=== PATIENT | male | born 1965 | race Caucasian/White ===

== ENCOUNTER 2023-08-20 23:11 | Inpatient (IN) | payer MEDICARE, SELFPAY ==
[2023-08-20] VITALS (7 sets, daily range): BP systolic 104–175; BP diastolic 63–99; BMI 39.2
[2023-08-20 20:44] LABS: % Basophils 0.6 % (0-2); % Eosinophils 0.9 % (0-6); % Immature Granulocytes 0.8 % (0-0.5); % Lymphocytes 19.5 % (20.5-51.1); % Monocytes 6.6 % (1.7-9.3); % Neutrophils 71.6 % (42.2-75.2); Absolute Basophils 0.1 10^3/uL (0-0.2); Absolute Eosinophils 0.1 10^3/uL (0-0.7); Absolute Immature Granulocytes 0.1 10^3/uL (0-0.05); Absolute Monocytes 0.7 10^3/uL (0.1-0.6); Absolute Neutrophils 7.3 10^3/uL (1.4-6.5); Mean Corp Hgb Conc. 34.3 g/dL (33.0-37.0); Mean Corpuscular Hgb 28.1 pg (27.0-31.0); Mean Corpuscular Volume 81.9 fL (80.0-94.0); Nucleated Red Blood Cells % 0.7 % (-); Red Cell Dist. Width 17.2 % (11.5-14.5); White Blood Cell Count 10.3 10^3/uL (4.8-10.8)
[2023-08-20 20:46] LABS: Hematocrit 17.2 % (39.0-52.0); Hemoglobin 5.9 g/dL (13.0-18.0)
--- NOTE | 2023-08-20 20:46 | ED.GENMED ---
History of Present Illness
General
Chief Complaint: Rectal Bleeding
Time Seen by Provider: 08/20/23 20:30
Travel History
Have you had any contact with someone who has COVID-19?: No
Do you have any symptoms of coronavirus? Fever > 100 degrees, chills, cough, shortness of breath, sore throat, loss of taste or smell, muscle aches, or headache?: No
History of Present Illness
History of Present Illness:
HPI: The patient presents due to concerns for rectal bleeding. He states he has had black stool that started 9 days ago. It was intermittent in nature but then recurred. He has no pain. He states he has had an ulcer in the past he does not take
any PPI. He also has some generalized weakness.
EXAM:
GENERAL: The patient appears slightly pale
HEENT: Moist oral mucosa
CARDIOVASCULAR: No murmurs, normal heart rate, regular rhythm, No chest wall tenderness
PULMONARY: No respiratory distress, breath sounds are clear and equal
ABDOMEN: Soft with no peritoneal signs, no tenderness, of note he has refused digital rectal examination
NEUROLOGIC: Excellent strength all extremities, no coordination deficits
PSYCHIATRIC: Appropriate mental status, normal insight and judgement
EXTREMITIES: Nontender, no edema, moves all extremities equally
SKIN: No rash, no lesions
TIME OF INITIAL ENCOUNTER: 8:30 PM
NUMBER AND COMPLEXITY OF PROBLEMS ADDRESSED AT THE ENCOUNTER
� Chronic conditions affecting care: A-fib, CHF, CAD, high blood pressure, diverticular disease, stomach ulcer
� Acute Exacerbation and/or Progression of Chronic Illness: This is an acute problem
� Differential Diagnosis includes: Upper GI bleed such as gastritis, ulcer, esophageal varices, the patient denies alcohol use
AMOUNT AND/OR COMPLEXITY OF DATA TO BE REVIEWED AND ANALYZED
� I performed an independent evaluation of and my interpretation is:
EKG:
CT:
X-rays:
Laboratory Studies: White count 10.3, hemoglobin 5.9, BUN 88, creatinine 2.2, glucose is 212
Other:
� Review of other/old records: I reviewed old records�the patient had endoscopy November 22, 2021 that showed a normal esophagus and erythematous mucosa in the antrum
� Clinical information was obtained by an independent historian: None needed
� Prescriptions/Medications Considered but not given:
� Further testing considered but not performed:
RISK OF COMPLICATIONS AND/OR MORBIDITY OR MORTALITY OF PATIENT MANAGEMENT
� Social determinants of health affecting care: Lives at home
� Discussion with other providers: Dr. Rosario for admission at 9:05 PM
� Escalation of care including admission/observation vs risk of discharge considered: The patient is found to have a significant drop in his hemoglobin. I have ordered Protonix as he reports melena. He is not taking any Pepto
or iron. He refused digital rectal examination for Hemoccult testing. He is no longer on NSAIDs or Eliquis.
Past History
Past History
ED Past Medical History: CAD, CHF (EF 30%.), HTN, Other (Gout) and Other (Perforated gastric ulcer 2014)
ED Past Surgical History: Urological and Other (laparotomy, repair of perforated gastric ulcer 2014)
Social History
Tobacco: Non-smoker
Alcohol: Occasional
Drug: None
Personal: Single
Employment: Employed
Phy Exam
Physical Exam
Physical Exam:
See HPI
Course
Orders/Labs/Results
Orders:
Orders
08/20/23 20:29
Complete Blood Count/With Diff Urgent
Comprehensive Metabolic Panel Urgent
PTT Urgent
Prothrombin Time Urgent
08/20/23 20:43
Type+Screen Urgent
BBK Wristband Number:
08/20/23 20:50
* Blood Bank Products Urgent
Blood Bank Products: *Packed RBC Leuko(PRBC's)
Quantity: 2
Transfuse Today: Yes
Reason: Anemia
08/20/23 20:51
Pantoprazole [Protonix IV] 80 mg IV NOW STA
Abnormal Lab Results
08/20/23
20:29
RBC 2.10 L 10^6/uL
(4.70-6.10)
Hgb 5.9 L* g/dL
(13.0-18.0)
Hct 17.2 L* %
(39.0-52.0)
RDW 17.2 H %
(11.5-14.5)
Abs Immat Gran (auto) 0.1 H 10^3/uL
(0-0.05)
Absolute Neuts (auto) 7.3 H 10^3/uL
(1.4-6.5)
Absolute Monos (auto) 0.7 H 10^3/uL
(0.1-0.6)
Immature Gran % 0.8 H %
(0-0.5)
Lymphocytes % 19.5 L %
(20.5-51.1)
Sodium 134 L mmol/L
(135-145)
BUN 88 H mg/dl
(9-20)
Creatinine 2.2 H mg/dL
(0.7-1.3)
Glucose 212 H mg/dl
(70-99)
Alkaline Phosphatase 32 L U/L
(38-126)
Total Protein 5.7 L g/dl
(6.3-8.2)
Albumin 3.3 L g/dl
(3.5-5.0)
08/20/23 20:29
08/20/23 20:29
Vital Signs
Initial and Last Documented VS:
Initial Vital Signs
Temp Pulse Resp BP Pulse Ox
98.3 F 91 18 175/99 100
08/20/23 17:15 08/20/23 17:15 08/20/23 17:15 08/20/23 17:15 08/20/23 17:15
Last Documented Vital Signs
Temp Pulse Resp BP Pulse Ox
98.3 F 81 20 117/72 99
08/20/23 17:15 08/20/23 20:45 08/20/23 20:45 08/20/23 20:18 08/20/23 20:45
*Critical Care Note
Total Time (30-74mins, 75-104mins- exclusive of procedures): Not Applicable
ED Attending Note
-
Portions of this chart may have been created with voice recognition software.� Occasional wrong word or��sound alike� substitutions may have occurred due to the inherent limitations of voice recognition software.
Discharge Plan
Departure
Patient Disposition: Admit
Date of Disposition: 08/20/23
Time of Disposition: 21:02
Presentation/result/management discussed w/ accepting MD/DO: Hospitalist
Patient with high blood pressure during this ER visit?: Yes
Discharge Problem:
Anemia
Prescriptions:
No Action
carvedilol [Coreg] 25 mg tablet
25 mg PO BID Qty: 60 0RF
naproxen sodium [Aleve] 220 mg Tablet
660 mg PO DAILY PRN (Reason: mild pain)
furosemide 40 mg tablet
40 mg PO DAILY
Referrals:
Luciana Gonzalez DO [Family Provider] -
Interventions
Interventions:
*Risk Screen - Suicide Last Done: 08/20/23 17:15
*General Assessment Last Done: 08/20/23 17:15
*Neglect/Abuse Screening Last Done: 08/20/23 17:15
ED- Fall Risk Assessment Last Done: 08/20/23 20:47
*ED COVID-19 Vaccine History Last Done: 08/20/23 17:15
UZ-Tzptgc-Pzyasxjtqe Assessment Last Done: 08/20/23 20:47
ED- Cardiac Assessment Last Done: 08/20/23 20:47
ED- Pulmonary Assessment Last Done: 08/20/23 20:47
Discharge Date and Time
Print Language: AUSTRALIAN
[2023-08-20 20:48] LABS: ALT (SGPT) 12 U/L (0-50); AST (SGOT) 18 U/L (17-59); Albumin 3.3 g/dl (3.5-5.0); Alkaline Phosphatase 32 U/L (38-126); Blood Urea Nitrogen 88 mg/dl (9-20); Carbon Dioxide 22 mmol/L (22-30); Chloride 101 mmol/L (98-107); Estimated Creatinine Clearance 43 ml/min; Glucose 212 mg/dl (70-99); Potassium 3.8 mmol/L (3.5-5.1); Sodium 134 mmol/L (135-145); Total Bilirubin 0.4 mg/dl (0.2-1.3); Total Protein 5.7 g/dl (6.3-8.2); eGFR 34.08
[2023-08-20] MEDS: PROTONIX IV 80 MG IV (20:56)
[2023-08-20 21:08] LABS: Mean Platelet Volume 9.8 fL (7.4-10.4); Platelet Count 285 10^3/uL (130-400)
[2023-08-20 21:54] LABS: INR 1.24; PT 15.5 Sec (11.4-14.6)
[2023-08-20 21:55] LABS: APTT 25.9 Sec (23.4-35.0)
--- NOTE | 2023-08-20 22:00 | HPS.HSE ---
Family Physician
-
Family Physician: Luciana Gonzalez
Chief Complaint
-
Black stool, Back pain
History of Present Illness
Patient is a 58y M with PMH significant for obesity, paroxysmal A-Fib s/p ablation and prior history of perforated gastric ulcer who presents to ED complaining of black stools x 9 days and upper back pain between the shoulder blades this
afternoon. Patient no longer takes ASA or Eliquis for stroke risk reduction following PVI ablation for A-Fib. He does take Aleve as needed for musculoskeletal pains. He noted black, tarry stools over the pat 9 days - at least one BM per day.
there are occasional small amounts of bright red blood streaks in the stool. He has no diarrhea. No N/V. He reports sensation of abdominal 'fullness' but no pain. He has early satiety.
Patient noted pain between the shoulder blades this evening which he states is similar to the symptoms he had during his prior peptic ulcer perforation (2014).
Patient denies any lightheadedness or dizziness. He has no anterior chest pain, palpitations or shortness of breath.
Medical History
Past Medical History
Past Medical History: Reports Other
Additional Past Medical History:
Paroxysmal A-Fib s/p Ablation
GERD / PUD
Gout
Dilated Cardiomyopathy
Chronic HFrEF
Hypertension
Past Surgical History: Reports Other
Additional Past Surgical History:
Ex Lap / Perf Gastric Ulcer Repair (2014)
DCCV
PVI Ablation
Social History
Tobacco: Smoker (Rare cigar use.)
Alcohol: Former (No alcohol at all for at least 5 years.)
Drug: None
Family History
Family History: Other (Father: A-Fib)
Allergies / Home Medications
Allergies reflects when Allergies were last updated in [facility].
Home Medications with original date entered in [facility]
Allergy/Medication List:
Allergies
Allergy/AdvReac Type Severity Reaction Status Date / Time
No Known Allergies Allergy Verified 08/20/23 17:15
Home Medications
carvedilol 25 mg tablet (Coreg) 25 mg PO BID Arrhythmia #60 tabs 08/11/22
furosemide 40 mg tablet 40 mg PO DAILY Fluid retention/Swelling 08/20/23
naproxen sodium 220 mg tablet (Aleve) 660 mg PO DAILY PRN mild pain 08/20/23
Review of Systems
-
History Source: Patient
A 12 point ROS was completed and negative except as noted: Yes
Constitutional: Denies Fever or Chills
Respiratory: Denies Cough or Trouble Breathing
Cardiac: Denies Chest Pain, Palpitations or Syncope
Abdomen/GI: Reports Bloody Stools and Black Stools; Denies Abdominal Pain, Nausea, Vomiting or Diarrhea
: Denies Dysuria or Frequency
Musculoskeletal: Reports Edema and Other (Back pain); Denies Joint Pain
Neurological: Denies Dizzy or Headache
Psych: Denies Depression or Anxiety
Physical Exam
Vital Signs
Vital Signs
Temp Pulse Resp BP Pulse Ox
98.3 F 81 20 117/72 99
08/20/23 17:15 08/20/23 20:45 08/20/23 20:45 08/20/23 20:18 08/20/23 20:45
Physical Exam
General: Other (58y M in no acute distress.)
HEENT: Moist mucous membranes, PERRLA and Other (Thick neck.)
Respiratory: Clear; No Wheezes, Rales or Rhonchi
Cardiac: S1/S2 and Regular Rhythm; No Murmur
GI: Other (Obese, softly distended. No focal tenderness, rebound or guarding. Umbilical hernia without tenderness.)
Musculoskeletal: No Clubbing, No Cyanosis and Other (3+ pitting edema b/l LE with brawny venous stasis skin changes.)
Skin: Other (Large lipoma over the L upper posterior thoracic region. Not tender. Not changed from baseline per patient.)
Neuro: AO x 3
Laboratory Results
-
08/20/23:
08/20/23
Laboratory Results
PT Cancelled 08/20/23
INR Cancelled 08/20/23
APTT Cancelled 08/20/23
Total Bilirubin 0.4 mg/dl (0.2-1.3) 08/20/23
AST 18 U/L (17-59) 08/20/23
ALT 12 U/L (0-50) 08/20/23
Alkaline Phosphatase 32 U/L (38-126) L 08/20/23
Impression/Plan
-
A/P: Patient is a 58y M with PMH significant for HFrEF, PA-Fib s/p ablation and GERD / PUD who presents to ED complaining of black stools and back pain.
Melena
Back Pain
- Admit for further evaluation and treatment.
- Given back pain and prior history - will check CT now to rule out gastric ulcer / perforation.
- Patient does not appear particularly uncomfortable; however, his symptoms are reportedly identical to prior presentation.
- NPO, IV PPI.
- GI evaluation for probable endoscopic examination.
- Avoid NSAIDs, etc.
Acute Blood Loss Anemia secondary to the above
- Hgb = 5.9 with normal Hgb at baseline.
- Transfusion ordered in the ED.
- Follow H&H and provide additional PRBCs as needed.
JAYLAN on CKD III
- SCr = 2.2 compared to baseline of 1.5.
- Likely prerenal on basis of blood loss as noted above.
- Follow for improvement / return to baseline with transfusion.
Chronic HFrEF
- Stable. Some brawny LE edema on exam - but decreased from usual per patient.
- Most recent Echo here was LORY from 2022 with LVEF = 35-40%.
- Maintained on Lasix once daily.
- Continue usual diuretic dose IV following transfusion.
- Follow I/Os, daily weights, etc and adjust diuretic dosing as needed.
Paroxysmal Atrial Fibrillation
- s/p multiple cardioversions in the past.
- PVI Ablation on 09/25/22 and has been in sinus since that time per patient.
- No longer on any antiplatelet or anticoagulation medications.
- Monitor on telemetry for any new issues.
- Continue carvedilol.
Obesity due to excess calories
- Affects all aspects of care.
- Encourage healthy diet and increased exercise with goal of weight loss.
DVT Prophylaxis: SCDs
Code Status: Full
[2023-08-20 22:44] LABS: Troponin I 0.041 ng/ml
[2023-08-21] VITALS (33 sets, daily range): BP systolic 15–157; BP diastolic 44–104; PULSE 65–76; BMI 39.2; BMI 37.1; BMI 37.0
[2023-08-21] MEDS: PROTONIX 100 IV ×3 (04:02→22:44)
--- NOTE | 2023-08-21 06:12 | PTCARENOTE ---
New admit overnight. VSS. 2 units PRBC complete. 2L placed overnight for apnea, dropping to 75%. Denies pain. Protonix gtt running. Will monitor.
[2023-08-21 06:25] LABS: Mean Corp Hgb Conc. 32.8 g/dL (33.0-37.0); Mean Corpuscular Hgb 27.6 pg (27.0-31.0); Mean Platelet Volume 9.4 fL (7.4-10.4); Platelet Count 215 10^3/uL (130-400); Red Blood Cell Count 2.43 10^6/uL (4.70-6.10); Red Cell Dist. Width 16.6 % (11.5-14.5); White Blood Cell Count 8.1 10^3/uL (4.8-10.8)
[2023-08-21 06:47] LABS: Hematocrit 20.4 % (39.0-52.0)
[2023-08-21 06:48] LABS: Hemoglobin 6.7 g/dL (13.0-18.0)
--- NOTE | 2023-08-21 06:55 | CON.GI ---
Addendum entered and electronically signed by Soha Sutherland MD 08/21/23 12:08:
I saw and examined the patient.
The LINING PRESSER or PA's note was reviewed and I agree with the note.
Comment:58-year-old male with history of paroxysmal A-fib, currently not on anticoagulation, history of hypertension, congestive heart, perforated gastric ulcer status post omental patch in 2014, history of H. pylori infection, unclear regarding
treatment status presenting with complaints of black stool in the last 9 days. He reports that the last episode was yesterday. He was admitted in 2021 with anemia, at that time had an upper endoscopy which showed gastritis without H. pylori,
colonoscopy showed diverticulosis and hemorrhoids and he was supposed to have a small bowel capsule study but not followed up since.
Currently denies any abdominal pain, nausea or vomiting. No trouble swallowing. Bowel usually is 1-2 bowel movements a day, no pushing or straining, no bright blood or black stool in the last 9 days. No loss of appetite or unintentional weight
loss. Takes Aleve as needed for knee pain. Denies any history of blood transfusions or IV iron infusions since 2021 visit. No family history of colon cancer or colon polyps that he knows of.
Hemoglobin on admission was 5.9, this morning at 7.4, he is getting his third unit of blood. Iron studies possibly after blood transfusion showed normal levels.
-Significant anemia with history of black stool, refused rectal exam. Hemodynamically stable without any active since admission.
CT scan without contrast unremarkable.
Agree with B12 and folate levels and celiac panel.
Will do upper endoscopy today followed by colonoscopy.
Addendum entered and electronically signed by OLGA Barba 08/21/23 10:39:
Pt declined rectal exam
Addendum entered and electronically signed by OLGA Barba 08/21/23 10:06:
will try to add iron studies, B12, folate to ER labs
Addendum entered and electronically signed by OLGA Barba 08/21/23 09:56:
08/20/23 CT Abd/pel Without Iv Or Oral
1. Mild colonic diverticulosis without evidence of diverticulitis. No inflammatory bowel process, and no evidence of intestinal obstruction.
2. Low attenuation of the blood pool relative to myocardium, suggestive of anemia.
3. Small fat-containing umbilical hernia without evidence of incarceration.
Original Note:
Consultation
-
Date/Time Consultation Requested: 08/21/23 0250
Date/Time Consultation Performed: 08/21/23 0830
Requesting Provider: Miguel Rosario DO
Performing Provider: OLGA Duenas, Soha Sutherland MD
Reason for Consultation: rectal bleeding
Medical History
Chief Complaint / HPI
Chief Complaint: black stools
History of Present Illness:
Pt is a 58yo presents with hx perforated ulcer with prior repair in 2014, PAF, CAD, CHF, HTN. He was noted with + H pylori stool in 2014 and recommended 2 week treatment with amoxicillin, Clarithromycin and Protonix but unsure if completed. He was
2021 he presented with black stools in setting of Indomethacin for gout. He completed EGD and colon at that time with EGD note normal esophagus, erythema in antrum with neg small bowel biopsy and neg H pylori. Colonoscopy with diverticulosis and
hemorrhoids. He was recommended capsule but not completed without follow up. Now on admission with hbg 5.9 with recent melena. He reports about 9 days ago noting intermittent black stools. He began with lightheadedness and presented for eval with
no stools overnight. Pt also noted BUN 88 with creat 2.2 on admission higher than baseline. troponin -.044
At this time he admits to recent Aleve use as needed but admits to taking 3 tabs at a time for knee and generalized pain. He denies dysphagia, GERD, nausea, vomiting, hematemesis, abdominal pain, constipation or red blood in stools.
Past Medical History
Past Medical History: Arrhythmias (PAF, afib with RVR), CAD, CHF (EF 30 %), HTN and Other (gout, perforated gastric ulcer 2014 + H pylori, chronic knee pain, ? sleep apnea (undiagnosed))
Past Surgical History: Cardiac (cardioversion) and Other (laparotomy repair of perforated ulcer 2014)
Social History
Tobacco: Non-Smoker
Alcohol: Former (quit 2012 none current )
Drug: None
Personal: Single
Living: Other (friend)
Family History
Family History: Other (no family hx colon CA or polyps)
Allergies / Home Medications
Allergy/AdvReac Type Severity Reaction Status Date / Time
No Known Allergies Allergy Verified 08/20/23 17:15
�Medication �Instructions �Recorded
carvedilol 25 mg tablet (Coreg) 25 mg PO BID Arrhythmia #60 tabs 08/11/22
furosemide 40 mg tablet 40 mg PO DAILY Fluid 08/20/23
retention/Swelling
naproxen sodium 220 mg tablet 660 mg PO DAILY PRN mild pain 08/20/23
(Aleve)
Review of Systems
-
History Source: Patient
Constitutional: Reports Other (dizziness )
EENT: Reports No Symptoms
Respiratory: Reports No Symptoms
Abdomen/GI: Reports Black Stools
: Reports No Symptoms
Musculoskeletal: Reports Other (knee pain)
Skin: Reports No Symptoms
Neurological: Reports Dizzy
Endocrine: Reports No Symptoms
Hematologic/Lymphatic: Reports No Symptoms
Vital Signs
Temp Pulse Resp BP Pulse Ox
97.8 F 67 14 114/68 100
08/21/23 03:57 08/21/23 06:00 08/21/23 06:00 08/21/23 06:00 08/21/23 06:00
Physical Exam
Exam
General: Well Developed, Well Nourished and No Apparent Distress
HEENT: Normocephalic and Anicteric
Respiratory: Clear
Cardiac: Regular Rhythm
GI: Soft, Non Tender and Non Distended
Rectal: Other (report recent black then brown stool)
Musculoskeletal: No Clubbing and No Cyanosis
Skin: Warm and Dry
Neuro: Awake, Alert, Oriented and AO x 3
Psych: Other (forgetful)
Results
WBC 8.1 10^3/uL (4.8-10.8) 08/21/23 06:00
Hgb 6.7 g/dL (13.0-18.0) L* 08/21/23 06:00
Hgb Cancelled 08/21/23 06:00
Hct 20.4 % (39.0-52.0) L* 08/21/23 06:00
Hct Cancelled 08/21/23 06:00
MCV 84.0 fL (80.0-94.0) 08/21/23 06:00
Plt Count 215 10^3/uL (130-400) D 08/21/23 06:00
Absolute Neuts (auto) 7.3 10^3/uL (1.4-6.5) H 08/20/23 20:29
PT 15.5 Sec (11.4-14.6) H 08/20/23 21:34
INR 1.24 08/20/23 21:34
APTT 25.9 Sec (23.4-35.0) 08/20/23 21:34
Sodium 134 mmol/L (135-145) L 08/20/23 20:
Potassium 3.8 mmol/L (3.5-5.1) 08/20/23 20:
Chloride 101 mmol/L (98-107) 08/20/23 20:
Carbon Dioxide 22 mmol/L (22-30) 08/20/23 20:
BUN 88 mg/dl (9-20) H 08/20/23 20:29
Creatinine 2.2 mg/dL (0.7-1.3) H 08/20/23 20:
Calcium 9.0 mg/dl (8.4-10.2) 08/20/23:
Total Bilirubin 0.4 mg/dl (0.2-1.3) 08/20/23 20:29
AST 18 U/L (17-59) 08/20/23 20:29
ALT 12 U/L (0-50) 08/20/23 20:29
Alkaline Phosphatase 32 U/L (38-126) L 08/20/23 20:29
Diagnostic Image Results:
08/20/23 CT pending
Prior GI Procedures:
EGD: 10/2021 Do - Normal esophagus.
- Erythematous mucosa in the antrum. Biopsied.
- Normal duodenal bulb, first portion of the duodenum
and second portion of the duodenum. Biopsied.
bx neg with neg H pylori
Colonoscopy: 10/2021 Do with fair prep, diverticulosis non bleeding internal hemorrhoids
Assessment / Plan
-
Pt is a 58yo presents with hx perforated ulcer with prior repair in 2014, PAF, CAD, CHF, HTN. He was noted with + H pylori stool in 2014 and recommended 2 week treatment with amoxicillin, Clarithromycin and Protonix but unsure if completed. He was
2021 he presented with black stools in setting of Indomethacin for gout. He completed EGD and colon at that time with EGD note normal esophagus, erythema in antrum with neg small bowel biopsy and neg H pylori. Colonoscopy with diverticulosis and
hemorrhoids.He was recommended capsule but not completed without follow up. Now on admission with hbg 5.9 with recent melena.
-melena
-anemia
-admission 2021 with black stool and anemia with neg EGD/colon
-hx perforated ulcer with ex lap and repair 2014 pt with + H pylori with treatment at that time and neg H pylori on bx 2021
-acute on chronic CKD
-increased trop may be demand related
-hypoalbuminemia
other medical problems:
-PAF no AC with prior cardioversion
-CHF
-CAD
-HTN
-? sleep apnea with some desats with sleeping per staff
PLAN:
Etiology of melena related to Upper GI source- with concurrent rise in BUN(though also creat increase), PUD with hx H hyplori vs other
follow hbg s/p 2 units PRBC's hbg up to 6.7 for additional transfusion now
Plan for EGD today with minimal improvement with transfusion though no stools overnight
NPO
PPI gtt
NSAID avoidance
add stool for H pylori and celiac testing
reviewed with hospitalist for troponin increase minimal increase with anemia
will follow
-
-
Thank you for consultation and allowing me to participate in the patient's care. Please call the enterprise [facility] architect GI physician during the after hours with any questions or concerns.
[2023-08-21 06:57] LABS: Blood Urea Nitrogen 75 mg/dl (9-20); Calcium 8.4 mg/dl (8.4-10.2); Carbon Dioxide 24 mmol/L (22-30); Chloride 107 mmol/L (98-107); Estimated Creatinine Clearance 53 ml/min; Glucose 143 mg/dl (70-99); Potassium 3.8 mmol/L (3.5-5.1); Sodium 138 mmol/L (135-145); eGFR 43.36
[2023-08-21 07:11] LABS: Troponin I 0.044 ng/ml
[2023-08-21 07:46] LABS: Glucose - Point of Care 170 mg/dl (70-99)
[2023-08-21] MEDS: LASIX 40 MG IV (09:11)
[2023-08-21 10:09] LABS: Glycohemoglobin (HgbA1c) 6.3 % (4.0-5.6)
[2023-08-21 10:31] LABS: Hematocrit 22.4 % (39.0-52.0); Hemoglobin 7.4 g/dL (13.0-18.0)
[2023-08-21 11:04] LABS: Iron 84 ug/dl (49-181)
[2023-08-21 11:14] LABS: Percent Saturation 26 % (20-50); Total Iron Binding Capacity 319 ug/dl (261-462)
[2023-08-21 12:04] LABS: Folate 10.3 ng/ml (2.76-20); Vitamin B12 327 pg/ml (239-931)
[2023-08-21 12:45] LABS: Glucose - Point of Care 104 mg/dl (70-99)
--- NOTE | 2023-08-21 13:57 | PTCARENOTE ---
Addendum entered by Holli Weir 08/21/23 14:52:
Pt to GI lab via stretcher.
Original Note:
1 unit of PRBC's transfused. Pt tolerated well. For GI lab this afternoon. Pt updated on plan of care.
[2023-08-21 14:10] LABS: IgA 212 mg/dl (70-400)
[2023-08-21] MEDS: GAVILAX 238 GM PO (16:43)
--- NOTE | 2023-08-21 17:09 | PTCARENOTE ---
Pt ordered bowel prep. Educated on prep, pt tolerating prep at this time.
--- NOTE | 2023-08-21 17:12 | W.PN.HOSP.TC ---
Today's Communication/Plan
-
EGD took place today
Colonoscopy tomorrow
Assessment / Plan
Assessment / Plan
Physical Exam
General: Not in acute distress.
HEENT: Normocephalic
Respiratory: Clear to Auscultation Bilaterally
Cardiac: S1/S2 and Regular Rhythm
GI: Positive bowel sounds. Soft and nontender.
Musculoskeletal: No Cyanosis and Other (3+ pitting edema b/l LE with brawny venous stasis skin changes.)
Skin: Other (Large lipoma over the L upper posterior thoracic region. Not tender. Not changed from baseline per patient.)
Neuro: AAO x [address]/pel Without Iv Or Oral (as per radiologist's report)
IMPRESSION:
1. Mild colonic diverticulosis without evidence of diverticulitis. No inflammatory bowel process, and no evidence of intestinal obstruction.
2. Low attenuation of the blood pool relative to myocardium, suggestive of anemia.
3. Small fat-containing umbilical hernia without evidence of incarceration.

Assessment/Plan
Patient is a 58y M with PMH significant for HFrEF, PA-Fib s/p ablation and GERD / PUD who presents to ED complaining of black stools and back pain.
Melena
Back Pain
- Given back pain and prior history - will check CT now to rule out gastric ulcer / perforation.
- Clear Liquids for now, but NPO after midnight.
- IV PPI.
- GI evaluation - EGD took place today, colonoscopy tomorrow
- Avoid NSAIDs, etc.
Acute Blood Loss Anemia secondary to the above
- Hgb = 5.9 with normal Hgb at baseline.
- Transfusion ordered with resulting improvement.
- Follow H&H and provide additional PRBCs as needed.
- Continue to monitor in IMU
JAYLAN on CKD III
- SCr = 2.2-->1.8, compared to baseline of 1.5.
- Likely prerenal on basis of blood loss as noted above.
- Follow for improvement / return to baseline with transfusion.
Chronic HFrEF
- Stable. Some brawny LE edema on exam - but decreased from usual per patient.
- Most recent Echo here was LORY from 2022 with LVEF = 35-40%.
- Maintained on Lasix once daily.
- Continue usual diuretic dose IV following transfusion.
- Follow I/Os, daily weights, etc and adjust diuretic dosing as needed.
Paroxysmal Atrial Fibrillation
- s/p multiple cardioversions in the past.
- PVI Ablation on 09/25/22 and has been in sinus since that time per patient.
- No longer on any antiplatelet or anticoagulation medications.
- Monitor on telemetry for any new issues.
- Continue carvedilol.
Obesity due to excess calories
- Affects all aspects of care.
- Encourage healthy diet and increased exercise with goal of weight loss.
DVT Prophylaxis: SCDs
Code Status: Full
Anticipated Discharge: 24 - 48 hours
Subjective/Interval History
-
Date of Service: August 21, 2023
Patient was seen and examined. He was sleeping comfortably, denied any new symptoms or complaints.
Objective Data
-
Labs:
Laboratory Results
08/21/23 08/21/23 08/21/23
06:00 06:00 06:00
WBC 8.1
Hgb Cancelled 6.7 L*
Hct Cancelled 20.4 L*
Plt Count 215 D
Sodium 138
Potassium 3.8
Chloride 107
Carbon Dioxide 24
BUN 75 H
Creatinine 1.8 H
Glucose 143 H
Calcium 8.4
08/21/23
10:16
WBC
Hgb 7.4 L
Hct 22.4 L
Plt Count
Sodium
Potassium
Chloride
Carbon Dioxide
BUN
Creatinine
Glucose
Calcium
Vital Signs:
Vital Signs
Temp Pulse Resp BP Pulse Ox
97.4 F 73 19 128/72 97
08/21/23 15:43 08/21/23 15:43 08/21/23 15:43 08/21/23 15:32 08/21/23 15:05
I&O
08/20/23 08/21/23 08/22/23
06:59 06:59 06:59
Intake Total 500 / 500 500 / 500
Output Total 1550 / 1550
Balance 500 / 500 -1050 / -1050
[2023-08-21 17:25] LABS: Troponin I 0.081 ng/ml
--- NOTE | 2023-08-21 18:02 | CM ---
Patient with Dx melena, Acute Blood Loss Anemia. Plan EGD today, Colonoscopy tomorrow.
Met with patient who resides with his friend in a 1 story house with 3 ESTRELLA.
The patient has been independent in ADLs and ambulation.
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
The patient has no DME or prior VN.
PCP - Luciana Gonzalez
Pharmacy - [facility] [id number]
No CM d/c needs identified.
Plan home.
[2023-08-21 18:04] LABS: Glucose - Point of Care 91 mg/dl (70-99)
[2023-08-21 18:32] LABS: Hematocrit 24.6 % (39.0-52.0)
[2023-08-21] MEDS: COREG 25 MG PO (21:03)
[2023-08-21 21:25] LABS: Glucose - Point of Care 128 mg/dl (70-99)
--- NOTE | 2023-08-21 22:24 | PTCARENOTE ---
Pt received from previous RN. Pt drank bowel prep for colonoscopy tomorrow AM. Pt starting to have liquid BM's. Pt denies abdominal pain. Pt using BSC, Pt educated on necessity to use commode r/t being connected to monitor and iv carlos as well as
frequency of BM's.Pt on 2L NC. Sats above 95%. Call clayton in reach.
--- NOTE | 2023-08-21 23:05 | PTCARENOTE ---
RN entered room to obtain ordered troponin lab. Pt became agitated and stated 'now im mad' 'tell whoever is in charge they cant take anymore blood'. Pt educted on the necessity and purpose of blood work. Pt states again 'you can take it this time
but not after this'. Importance and rationale of blood work and care interventions reenforced calmly. Pt stated 'this is retarded', then 'fine just stick me'. Pt consented to troponin lab draw. Will attempt to obtain Am labs.
[2023-08-22] VITALS (12 sets, daily range): BP systolic 81–139; BP diastolic 57–76; PULSE 64–75; BMI 36.5
[2023-08-22 00:01] LABS: Troponin I 0.121 ng/ml
--- NOTE | 2023-08-22 00:23 | PTCARENOTE ---
Troponin remains on an upward trend, most recent result 0.121. LOG DECK TENDER made aware. No new orders. Will continue with Q6 troponin's. Pt does not c/o chest pain.
--- NOTE | 2023-08-22 01:15 | PTCARENOTE ---
Pts O2 sat dropped to 70% alongside the apnea alarm. This RN entered the room to find the 02 out of the Pts nose. The blanket was pulled over his head. the RN pulled the blanket down. Pt responded 'now im angry' 'you better stop or im gonna get real
mad'. Pt was asked to return the O2 to his nose. Pt responded aggressively, with a raised voice stating 'Im not wearing that... im trying to sleep, its not comfortable in my nose'. Pt was calmly educated as the the reasoning and necessity of the 02.
Pt ripped pulse ox off and threw it across from him, and threw oxygen. Pt using curse words frequently. Pt asked to place oxygen back in nose again. Pt responded 'what do you think im trying to do'. Pt asked to please calm down and be respectful. Pt
responded aggressively. Pt finally returned 02 to nose and Rn exited the room. Pts sat remains in the 90's while wearing 02.
[2023-08-22 05:28] LABS: % Basophils 0.6 % (0-2); % Eosinophils 2.6 % (0-6); % Immature Granulocytes 0.7 % (0-0.5); % Lymphocytes 19.8 % (20.5-51.1); % Monocytes 6.8 % (1.7-9.3); % Neutrophils 69.5 % (42.2-75.2); Absolute Basophils 0.1 10^3/uL (0-0.2); Absolute Eosinophils 0.2 10^3/uL (0-0.7); Absolute Immature Granulocytes 0.1 10^3/uL (0-0.05); Absolute Lymphocytes 1.7 10^3/uL (1.2-3.4); Absolute Monocytes 0.6 10^3/uL (0.1-0.6); Absolute Neutrophils 6.1 10^3/uL (1.4-6.5); Hematocrit 23.1 % (39.0-52.0); Hemoglobin 7.6 g/dL (13.0-18.0); Mean Corp Hgb Conc. 32.9 g/dL (33.0-37.0); Mean Corpuscular Hgb 27.9 pg (27.0-31.0); Mean Corpuscular Volume 84.9 fL (80.0-94.0); Mean Platelet Volume 9.1 fL (7.4-10.4); Nucleated Red Blood Cells % 0 % (-); Platelet Count 223 10^3/uL (130-400); Red Blood Cell Count 2.72 10^6/uL (4.70-6.10); Red Cell Dist. Width 17.1 % (11.5-14.5); White Blood Cell Count 8.7 10^3/uL (4.8-10.8)
[2023-08-22 06:22] LABS: Troponin I 0.106 ng/ml
[2023-08-22 06:26] LABS: ALT (SGPT) 12 U/L (0-50); AST (SGOT) 18 U/L (17-59); Albumin 3.1 g/dl (3.5-5.0); Alkaline Phosphatase 30 U/L (38-126); Blood Urea Nitrogen 45 mg/dl (9-20); Calcium 8.3 mg/dl (8.4-10.2); Carbon Dioxide 29 mmol/L (22-30); Chloride 105 mmol/L (98-107); Estimated Creatinine Clearance 67 ml/min; Glucose 122 mg/dl (70-99); Magnesium 2.1 mg/dl (1.6-2.3); Potassium 3.5 mmol/L (3.5-5.1); Sodium 139 mmol/L (135-145); Total Bilirubin 0.8 mg/dl (0.2-1.3); Total Protein 5.6 g/dl (6.3-8.2); eGFR 58.62
[2023-08-22] MEDS: NOVOLOG FLEXPEN-LOW RESISTANCE SC (08:35)
[2023-08-22] MEDS: GAVILAX 125 GM PO (08:43)
[2023-08-22] MEDS: COREG PO (08:43)
[2023-08-22] MEDS: PROTONIX 100 IV (09:09)
[2023-08-22] MEDS: LASIX 40 MG IV (09:09)
--- NOTE | 2023-08-22 09:29 | PTCARENOTE ---
Pt completed second round of bowel prep. Tolerated well.
[2023-08-22 12:09] LABS: Glucose - Point of Care 256 mg/dl (70-99)
--- NOTE | 2023-08-22 12:24 | PTCARENOTE ---
Pt with multiple liquid bowel movements yet not clear. D/w GI lab. Order received for tap water enema. Administered as ordered with good results. GI lab notified. Pt for c-scope today.
[2023-08-22] MEDS: NOVOLOG FLEXPEN-LOW RESISTANCE 3 UNITS SC (13:23)
--- NOTE | 2023-08-22 13:54 | PTCARENOTE ---
Pt to GI lab via [facility].
[2023-08-22 14:41] LABS: tTG IgA Antibody 4.6 EU/ml (0-19); tTG IgG Antibody 5.9 EU/ml (0-19)
[2023-08-22 14:59] LABS: Glucose - Point of Care 81 mg/dl (70-99)
--- NOTE | 2023-08-22 16:02 | W.PN.HOSP.TC ---
Today's Communication/Plan
-
No active bleeding on EGD or colonscopy
GI recommends monitoring overnight, discharge tomorrow as discussed
AM labs
Transfer to tele
Assessment / Plan
Assessment / Plan
Physical Exam
General: Not in acute distress.
HEENT: Normocephalic
Respiratory: Clear to Auscultation Bilaterally
Cardiac: S1/S2 and Regular Rhythm
GI: Positive bowel sounds. Soft and nontender.
Musculoskeletal: No Cyanosis and Other (3+ pitting edema b/l LE with brawny venous stasis skin changes.)
Skin: Other (Large lipoma over the L upper posterior thoracic region. Not tender. Not changed from baseline per patient.)
Neuro: AAO x [address] Abd/pel Without Iv Or Oral (as per radiologist's report)
IMPRESSION:
1. Mild colonic diverticulosis without evidence of diverticulitis. No inflammatory bowel process, and no evidence of intestinal obstruction.
2. Low attenuation of the blood pool relative to myocardium, suggestive of anemia.
3. Small fat-containing umbilical hernia without evidence of incarceration.

Assessment/Plan
Patient is a 58y M with PMH significant for HFrEF, PA-Fib s/p ablation and GERD / PUD who presents to ED complaining of black stools and back pain.
Melena
Back Pain
- Given back pain and prior history - will check CT now to rule out gastric ulcer / perforation.
- Low Residue Diet
- IV PPI.
- GI evaluation - EGD and colonscopy completed -- no active bleeding -- will need outpatient capsule study
- Avoid NSAIDs, etc.
- GI recommends monitoring for 1 more day and discharge tomorrow
Acute Blood Loss Anemia secondary to the above
- Hgb = 5.9 on admission, with normal Hgb at baseline.
- Transfusion ordered with resulting significant improvement.
- Follow H&H and provide additional PRBCs as needed.
JAYLAN on CKD III
- SCr = 2.2-->1.8-->1.4, compared to baseline of 1.5.
- Likely prerenal on basis of blood loss as noted above.
- Follow for improvement / return to baseline with transfusion.
Chronic HFrEF
- Stable. Some brawny LE edema on exam - but decreased from usual per patient.
- Most recent Echo here was [facility] from 2022 with LVEF = 35-40%.
- Maintained on Lasix once daily.
- Was on Lasix IV 40 mg daily, now switched to PO Lasix 40 mg daily (home regimen)
- Follow I/Os, daily weights, etc and adjust diuretic dosing as needed.
Paroxysmal Atrial Fibrillation
- s/p multiple cardioversions in the past.
- PVI Ablation on 09/25/22 and has been in sinus since that time per patient.
- No longer on any antiplatelet or anticoagulation medications.
- Monitor on telemetry for any new issues.
- Continue carvedilol.
Obesity due to excess calories
- Affects all aspects of care.
- Encourage healthy diet and increased exercise with goal of weight loss.
DVT Prophylaxis: SCDs
Code Status: Full
Anticipated Discharge: Within 24 hours
Subjective/Interval History
-
Date of Service: August 22, 2023
Patient was seen and examined. He reported no pain or any new symptoms or complaints.
Objective Data
-
Labs:
Laboratory Results
08/22/23
05:11
WBC 8.7
Hgb 7.6 L
Hct 23.1 L
Plt Count 223
Sodium 139
Potassium 3.5
Chloride 105
Carbon Dioxide 29
BUN 45 H
Creatinine 1.4 H
Glucose 122 H
Calcium 8.3 L
Total Bilirubin 0.8
AST 18
ALT 12
Alkaline Phosphatase 30 L
Vital Signs:
Vital Signs
Temp Pulse Resp BP Pulse Ox
97.6 F 68 12 108/64 99
08/22/23 15:07 08/22/23 15:02 08/22/23 15:02 08/22/23 15:02 08/22/23 15:02
I&O
08/21/23 08/22/23 08/23/23
06:59 06:59 06:59
Intake Total 500 / 500 500 / 500
Output Total 2200 / 2200 850 / 850
Balance 500 / 500 -1700 / -1700 -850 / -850
--- NOTE | 2023-08-22 16:51 | PTCARENOTE ---
Addendum entered by Holli Weir 08/22/23 17:34:
D/c instructions and prescriptions reviewed. Belongings collected from room. Pt d/c off unit via wheelchair.
Addendum entered by Holli Weir 08/22/23 17:15:
TT received from Dr. Granger stating he spoke with GI and would do a regular d/c instead of AMA if pt would be willing to wait. Pt agreeable to wait for normal d/c.
Addendum entered by Holli Weir 08/22/23 17:10:
Dr Granger at bedside. AMA form reviewed and signed. IV and monitor equipment removed.
Original Note:
Pt becoming agitated when informed his diet was '1999 ADA, low residue.' Pt states he is not diabetic. Attempted to educate pt on elevated sugar and A1C result. Pt increasingly agitated and states he is 'done and would like to leave.' Dr Granger
notified via TT requesting him to come explain AMA form with pt. Awaiting arrival of MD.
--- NOTE | 2023-08-22 17:19 | W.DS.TRANS ---
DC Summary - Director Perioperative
-
Discharge Instructions:
Sleep Apnea Risk High
Discharge Diagnosis/Procedures Umbilical Hernia
Small hiatal hernia
Congestive gastropathy
4 mm polyp in the descending colon, removed with
a cold snare. Resected and retrieved. Clip was
placed.
Diverticulosis in the recto-sigmoid colon, in
the sigmoid colon and in the descending colon.
Internal hemorrhoids.
Diet Low Residue
Activity As tolerated
Blood Work Recheck CBC and CMP with your outpatient primary
care physician in 1 to 2 days.
Instructions:
Stand-Alone Forms:
Changes to Home Medications: Yes
Discharge Medications:
DC Medications w/original date entered in [facility]
carvedilol 25 mg tablet (Coreg) 25 mg PO BID Arrhythmia #60 tabs 08/11/22
furosemide 40 mg tablet 40 mg PO DAILY Fluid retention/Swelling 08/20/23
cyanocobalamin (vitamin B-12) 1,000 mcg tablet 1,000 mcg PO DAILY #14 tabs 08/22/23
pantoprazole 40 mg tablet,delayed release 40 mg PO BID #60 tabs 08/22/23
Home Medication Changes
Cyanocobalamin and Pantoprazole are new medications.
Pending Results: Yes
Additional Pending Results:
Celiac Studies
Pathology results for EGD and colonoscopy
Total time spent discharging patient (in min): 39
--- NOTE | 2023-08-23 07:55 | W.PN.UPDATE ---
Update Note
Progress Note Update
message sent to office to set up capsule endoscopy and follow up
[2023-08-24 00:20] LABS: Endomysial IgA Antibody Titer <1:10 (<1:10)
--- NOTE | 2023-08-25 13:02 | W.DCSUMMARY ---
Discharge Summary
Discharge Data
Date of Admission: 08/20/23
Date of Discharge: 08/22/23
Total time spent discharging patient (in min): 39
-
Pending Results: Yes
Additional Pending Results:
Celiac Studies
Pathology results for EGD and colonoscopy
Hospital Course
58 y/o male with past medical history significant for obesity, paroxysmal atrial fibrillation status post ablation and prior history of perforated gastric ulcer who presented complaining of black stools x 9 days and upper back pain between the
shoulder blades. Patient was noted to no longer take Aspirin or Eliquis for stroke risk reduction following PVI ablation for A-Fib. He had been taking take Aleve as needed for musculoskeletal pains. He noted black, tarry stools over the pat 9 days
- at least one BM per day. there are occasional small amounts of bright red blood streaks in the stool. He has no diarrhea. No N/V. He reports sensation of abdominal 'fullness' but no pain. He has early satiety. Patient was found to have a
hemoglobin of 5.9, made N.P.O., started on intravenous proton pump inhibitor, patient received a total of 3 units of blood. Patient had an upper endoscopy which showed a small hiatal hernia and congestive gastropathy, and colonoscopy showed polyp
and diverticulosis. It was recommended that patient get an outpatient capsule study. Patient was stable for discharge.
Discharge Plan
-
Patient Disposition: Home (Routine Discharge)
Discharge Diagnosis/Procedures: Melena and Acute Blood Loss Anemia
Umbilical Hernia
Small hiatal hernia
Congestive gastropathy
Acute Kidney Injury
4 mm polyp in the descending colon, removed with a cold snare. Resected and retrieved. Clip was placed.
Diverticulosis in the recto-sigmoid colon, in the sigmoid colon and in the descending colon.
Internal hemorrhoids.
Chronic HFrEF
Paroxysmal Atrial Fibrillation
Diet: Low Residue
Activity: As tolerated
Blood Work: Recheck CBC and CMP with your outpatient primary care physician in 1 to 2 days.
Referrals:
Luciana Gonzalez DO [Family Provider] - in one day (Needs CBC and CMP recheck)
Soha Sutherland MD [Active] - in one to two weeks (Capsule study)
Additional Discharge Medication Instructions: Cyanocobalamin and Pantoprazole are new medications.
Prescriptions:
New
pantoprazole 40 mg Tablet,Delayed Release (Dr/Ec)
40 mg PO BID Qty: 60 1RF
cyanocobalamin (vitamin B-12) 1,000 mcg tablet
1,000 mcg PO DAILY Qty: 14 1RF
Continued
carvedilol [Coreg] 25 mg tablet
25 mg PO BID Qty: 60 0RF
furosemide 40 mg tablet
40 mg PO DAILY
Discontinued
naproxen sodium [Aleve] 220 mg Tablet
660 mg PO DAILY PRN (Reason: mild pain)
Discharge Orders:
Discharge Patient (As Directed); Ordered 08/22/23
Ordered By: Ace Granger
Discharge Date and Time
Discharge Date/Time: 08/22/23 17:44
Print Language: TURKMEN
== END 2023-08-22 17:44 | disposition home or self-care (01) | DRG 811 ==
LOC: IMU 23:11
PROVIDERS: Emergency Medicine; ADMITTING PHYSICIAN Hospitalist; ATTENDING PHYSICIAN Hospitalist; CONSULT PHYSICIAN Internal Medicine Gastroenterology; EMERGENCY PHYSICIAN Emergency Medicine; FAMILY PHYSICIAN Family Medicine
PROC: 30233N1 Transfusion of Nonautologous Red Blood Cells into Peripheral Vein, Percutaneous Approach (ICD-10-PCS; 2023-08-20)
PROC: 0DB78ZX Excision of Stomach, Pylorus, Via Natural or Artificial Opening Endoscopic, Diagnostic (ICD-10-PCS; 2023-08-21)
PROC: 0DBM8ZZ Excision of Descending Colon, Via Natural or Artificial Opening Endoscopic (ICD-10-PCS; 2023-08-22)
DX: D62 Acute posthemorrhagic anemia (principal); K57.31 Diverticulosis of large intestine without perforation or abscess with bleeding; I42.0 Dilated cardiomyopathy; I50.22 Chronic systolic (congestive) heart failure; I13.0 Hypertensive heart and chronic kidney disease with heart failure and stage 1 through stage 4 chronic kidney disease, or unspecified chronic kidney disease; N17.9 Acute kidney failure, unspecified; E66.09 Other obesity due to excess calories; I48.0 Paroxysmal atrial fibrillation; K21.9 Gastro-esophageal reflux disease without esophagitis; M10.9 Gout, unspecified; F17.290 Nicotine dependence, other tobacco product, uncomplicated; N18.30 Chronic kidney disease, stage 3 unspecified; I25.10 Atherosclerotic heart disease of native coronary artery without angina pectoris; E88.09 Other disorders of plasma-protein metabolism, not elsewhere classified; R68.81 Early satiety; K31.89 Other diseases of stomach and duodenum; K44.9 Diaphragmatic hernia without obstruction or gangrene; K57.30 Diverticulosis of large intestine without perforation or abscess without bleeding; D12.4 Benign neoplasm of descending colon; K42.9 Umbilical hernia without obstruction or gangrene; K64.8 Other hemorrhoids; Z68.36 Body mass index [BMI] 36.0-36.9, adult; Z79.899 Other long term (current) drug therapy; Z87.11 Personal history of peptic ulcer disease
CPT/HCPCS: 88305; 36430; 74176; 80048; 80053; 82607; 82728; 82746; 82784; 82962; 83036; 83516; 83540; 83550; 83735; 84484; 85014; 85018; 85025; 85027; 85610; 85730; 86231; 86850; 86900; 86901; 86920; 93005; 96374; 99285; P9016

== ENCOUNTER 2024-04-02 23:09 | Inpatient (IN) | payer OTHER, SELFPAY ==
[2024-04-02 18:32] VITALS: BP 183/116
[2024-04-02 19:03] LABS: COVID-19 Antigen Positive (Negative)
[2024-04-02 19:12] LABS: Blood Urea Nitrogen 23 mg/dl (9-20); Calcium 8.3 mg/dl (8.4-10.2); Carbon Dioxide 21 mmol/L (22-30); Chloride 106 mmol/L (98-107); Glucose 133 mg/dl (70-99); Sodium 136 mmol/L (135-145); eGFR 58.62
[2024-04-02 19:34] LABS: NT-proBNP 5450 pg/ml; Troponin I 0.077 ng/ml
[2024-04-02 20:09] VITALS: BMI 40.8
[2024-04-02 20:17] VITALS: BP 122/76
--- NOTE | 2024-04-02 20:17 | ED.GENMED ---
History of Present Illness
General
Chief Complaint: Cardiac Symptoms
Source: patient
Exam Limitations: none
Time Seen by Provider: 04/02/24 20:11
History of Present Illness
History of Present Illness:
See MDM
Past History
Past History
ED Past Medical History: CAD, CHF (EF 30%.), HTN, Other (Gout) and Other (Perforated gastric ulcer 2014)
ED Past Surgical History: Urological and Other (laparotomy, repair of perforated gastric ulcer 2014)
Social History
Tobacco: Non-smoker
Alcohol: Occasional
Drug: None
Personal: Single
Employment: Employed
Phy Exam
Physical Exam
Physical Exam:
See MDM
Scores
Heart Failure Risk
Heart Failure Risk Score: Yes
History of Stroke or TIA: No
History of intubation for respiratory distress: No
Heart rate on ED arrival >/= 110: No
SaO2 <90% on arrival on room air: No
HR >/=110 during 3min walk test (or too ill to perform test): Yes
ECG has acute ischemic changes: No
Urea >/=12mmol/L (BUN 33.6mg/dL): No
Serum CO2>/=35mmol/L: No
Troponin I or T elevated to HI Level (0.4mg/dL): No
NT-proBNP >/=5,000ng/L (5,000pg/ml): Yes
HF Risk Score: 3
Admission Status: HIGH RISK 15.9% Consider SNF treatment or admission to hospital
Course
Orders/Labs/Results
Orders:
Orders
04/02/24 18:22
Electrocardiogram (*1) Urgent
Reason for Study: Shortness of Breath
Chest [CR Chest - 2 Views ] Urgent
Comment:
Reason For Exam: SOB
04/02/24 18:23
EKG- Treatment ONCE
04/02/24 18:48
Basic Metabolic Panel Urgent
COVID-19 Antigen Urgent
Source: Nasal Swab
NT-proBNP Urgent
Troponin I Urgent
Influenza A+B Rapid Molecular Urgent
RUPERTO Source: Nasal Swab
Specimen Description:
04/02/24 20:13
Complete Blood Count/With Diff Urgent
Potassium Urgent
04/02/24 20:31
Nirmatrelvir/Ritonavir [Paxlovid 150-100 mg Dose Pack] 1 dose PO ONCE STA
04/02/24 21:49
Furosemide [Lasix] 40 mg IV NOW STA
Abnormal Lab Results
04/02/24 04/02/24
18:48 20:13
Hgb 10.2 L g/dL
(13.0-18.0)
Hct 35.1 L %
(39.0-52.0)
MCV 74.2 L fL
(80.0-94.0)
MCH 21.6 L pg
(27.0-31.0)
MCHC 29.1 L g/dL
(33.0-37.0)
RDW 20.1 H %
(11.5-14.5)
Absolute Lymphs (auto) 1.0 L 10^3/uL
(1.2-3.4)
Absolute Monos (auto) 0.9 H 10^3/uL
(0.1-0.6)
Neutrophils % 75.8 H %
(42.2-75.2)
Lymphocytes % 12.0 L %
(20.5-51.1)
Monocytes % 11.2 H %
(1.7-9.3)
Carbon Dioxide 21 L mmol/L
(22-30)
BUN 23 H mg/dl
(9-20)
Creatinine 1.4 H mg/dL
(0.7-1.3)
Glucose 133 H mg/dl
(70-99)
Calcium 8.3 L mg/dl
(8.4-10.2)
Troponin I 0.077 H* ng/ml
SARS-CoV-2 Antigen Positive A
(Negative)
04/02/24 20:13
04/02/24 20:13
Vital Signs
Initial and Last Documented VS:
Initial Vital Signs
Temp Pulse Resp BP Pulse Ox
99.3 F 95 18 183/116 93
04/02/24 18:32 04/02/24 18:32 04/02/24 18:32 04/02/24 18:32 04/02/24 18:32
Last Documented Vital Signs
Temp Pulse Resp BP Pulse Ox
99.3 F 100 20 122/76 93
04/02/24 18:32 04/02/24 20:17 04/02/24 20:17 04/02/24 20:17 04/02/24 18:32
MDM/Problems Addressed
Differential Diagnosis Includes:
HPI and MDM Narrative:
58-year-old male presenting for evaluation of shortness of breath and leg swelling. Patient states both of his legs have been more swollen over the past week. He is now developing a cough and congestion over the past several days. Blood work and
chest x-ray evaluation. Patient with elevated troponin and BNP but this is not far from his baseline. Patient found to be COVID-positive. He believes his COVID symptoms started few days ago. Given that patient is high risk in regards to his
prior cardiovascular issues, will start Paxlovid
Chest x-ray shows cardiomegaly and some mild CHF. Will start IV Lasix and admit
Physical exam
General: Mildly uncomfortable
HEENT: protecting airway
Neck: appears supple
CV: No evidence of cyanosis. Regular rate and rhythm
Resp: No accessory muscle use. Mild wheeze to bases
Abd: Non-distended
Extremities: Both legs are edematous with +3 pitting edema
Neuro: alert
Psych: venous stasis to both legs
Skin: Intact
Problems Addressed including Acute and Chronic Conditions affecting care:
1. Covid
Acuity: acute
Prognosis: stable
Details: Given his past medical history, will start Paxlovid
2. Pulm edema
Acuity: acute
Prognosis: stable
Details: Will start IV Lasix once potassium has resulted
Updates
Given his comorbidities, will treat COVID with Paxlovid and admit for IV Lasix given his pulmonary edema
Differential Diagnosis (but not limited to): Pulm edema, pneumonia, bronchitis
Testing considered: D-dimer
Drug therapy (if applicable): OTC meds, please see d/c instruction regarding Rx drugs
Amount and/or Complexity of Data Reviewed
Clinical info obtained from: Patient
External data reviewed: N/A
Labs I independently reviewed (but not limited to): Elevated troponin and BNP but appears to be close to baseline
Radiology: X-ray independently reviewed: Chest x-ray shows mild pulm edema
Pulse Ox: not hypoxic
EKG independently reviewed: Sinus rhythm, PVCs, normal axis
Customer Assistance Associate: Sinus rhythm
Critical Care: The high probability of a clinically significant, sudden or life threatening deterioration of the cardiopulmonary system(s) required my full and direct attention, intervention and personal management. The aggregate critical care time
was 33 minutes. This time is in addition to time spent performing reported procedures but includes the following:
[x] Data Review and interpretation
[x] Patient assessment and monitoring of vital signs
[x] Documentation
[x] Medication orders and management
Risk of Complication:
Social Determinants of health: Good social support
Discussed with other providers: Hospitalist
Escalation of Care includes Admit/Obs: Given his pulm edema, will admit for IV Lasix
Occasional wrong word or 'sound a like' substitutions may have occurred due to the inherent limitations of voice recognition software. Read the chart carefully and recognize, using context, where substitutions have occurred.
*Critical Care Note
Total Time (30-74mins, 75-104mins- exclusive of procedures): 33 min
ED Attending Note
-
Portions of this chart may have been created with voice recognition software.� Occasional wrong word or��sound alike� substitutions may have occurred due to the inherent limitations of voice recognition software.
Discharge Plan
Departure
Patient Disposition: Admit
Date of Disposition: 04/02/24
Time of Disposition: 21:54
Admit to: Telemetry
Presentation/result/management discussed w/ accepting MD/DO: Hospitalist
Discharge Problem:
COVID, Pulmonary edema
Prescriptions:
No Action
carvedilol [Coreg] 25 mg tablet
25 mg PO BID Qty: 60 0RF
furosemide 40 mg tablet
40 mg PO DAILY
indomethacin 50 mg Capsule
40 mg PO PRN PRN (Reason: gout)
Referrals:
Luciana Gonzalez DO [Family Provider] -
Interventions
Interventions:
*Risk Screen - Suicide Last Done: 04/02/24 18:32
*General Assessment Last Done: 04/02/24 18:32
*Neglect/Abuse Screening Last Done: 04/02/24 18:32
ED- Fall Risk Assessment Last Done: 04/02/24 20:24
*ED COVID-19 Vaccine History Last Done: 04/02/24 18:32
ED- Pulmonary Assessment Last Done: 04/02/24 20:24
ED- Cardiac Assessment Last Done: 04/02/24 20:24
Discharge Date and Time
Print Language: CZECH
[2024-04-02 20:30] LABS: % Basophils 0.5 % (0-2); % Eosinophils 0.1 % (0-6); % Immature Granulocytes 0.4 % (0-0.5); % Monocytes 11.2 % (1.7-9.3); % Neutrophils 75.8 % (42.2-75.2); Absolute Monocytes 0.9 10^3/uL (0.1-0.6); Absolute Neutrophils 6.2 10^3/uL (1.4-6.5); Hematocrit 35.1 % (39.0-52.0); Hemoglobin 10.2 g/dL (13.0-18.0); Mean Corp Hgb Conc. 29.1 g/dL (33.0-37.0); Mean Corpuscular Hgb 21.6 pg (27.0-31.0); Mean Corpuscular Volume 74.2 fL (80.0-94.0); Mean Platelet Volume 9.4 fL (7.4-10.4); Nucleated Red Blood Cells % 0 % (-); Platelet Count 231 10^3/uL (130-400); Red Blood Cell Count 4.73 10^6/uL (4.70-6.10); Red Cell Dist. Width 20.1 % (11.5-14.5); White Blood Cell Count 8.2 10^3/uL (4.8-10.8)
[2024-04-02 20:40] LABS: Potassium 4.1 mmol/L (3.5-5.1)
[2024-04-02] MEDS: PAXLOVID 150-100 MG DOSE PACK 1 DOSE PO (20:46)
[2024-04-02 21:00] VITALS: BP 112/78
--- NOTE | 2024-04-02 21:08 | EDRN ---
Patient provided with turkey sandwich
[2024-04-02 22:01] VITALS: BP 143/125
[2024-04-02] MEDS: LASIX 40 MG IV (22:05)
[2024-04-02 22:10] VITALS: BP 127/81
[2024-04-02 23:00] VITALS: BP 151/97
--- NOTE | 2024-04-02 23:00 | HPS.HSE ---
Family Physician
-
Family Physician: Luciana Gonzalez
Chief Complaint
-
Cough / SOB / Edema
History of Present Illness
Patient is a 58y M with PMH significant for cardiomyopathy, chronic lymphedema and obesity who presents to ED complaining of cough, SOB and edema. Patient states that he has noted increased LE swelling and progressive SOB over the past week or
so. He takes Lasix at home, but does not follow his weight. He notes that he developed rather sudden onset of hacking cough, increased dyspnea, myalgias and fatigue on 04/01/24. His symptoms progressed and he presented to the ED today for further
evaluation and treatment.
Patient denies any known sick contacts.
He has not received any vaccinations v SARS-CoV-2.
Medical History
Past Medical History
Past Medical History: Reports Other
Additional Past Medical History:
Paroxysmal A-Fib s/p Ablation
GERD / PUD
Gout
Dilated Cardiomyopathy
Chronic HFrEF
Hypertension
Past Surgical History: Reports Other
Additional Past Surgical History:
Ex Lap / Perf Gastric Ulcer Repair (2014)
DCCV
PVI Ablation
Social History
Tobacco: Smoker (Rare cigar use.)
Alcohol: Former (No alcohol at all for at least 5 years.)
Drug: None
Family History
Family History: Other (Father: A-Fib)
Allergies / Home Medications
Allergies reflects when Allergies were last updated in [facility].
Home Medications with original date entered in [facility]
Allergy/Medication List:
Allergies
Allergy/AdvReac Type Severity Reaction Status Date / Time
No Known Allergies Allergy Verified 08/20/23 17:15
Home Medications
carvedilol 25 mg tablet (Coreg) 25 mg PO BID Arrhythmia #60 tabs 08/11/22
furosemide 40 mg tablet 40 mg PO DAILY Fluid retention/Swelling 08/20/23
indomethacin 50 mg capsule 40 mg PO PRN PRN gout 04/02/24
Review of Systems
-
History Source: Patient
A 12 point ROS was completed and negative except as noted: Yes
Constitutional: Reports Fever, Fatigue and Chills
EENT: Denies Sore Throat
Respiratory: Reports Cough and Trouble Breathing
Cardiac: Denies Chest Pain or Palpitations
Abdomen/GI: Denies Abdominal Pain, Nausea, Vomiting or Diarrhea
: Denies Dysuria or Flank Pain
Musculoskeletal: Reports Muscle Pain and Edema; Denies Joint Pain
Neurological: Reports Headache; Denies Dizzy
Psych: Denies Depression or Anxiety
Physical Exam
Vital Signs
Vital Signs
Temp Pulse Resp BP Pulse Ox
99.3 F 96 20 127/81 93
04/02/24 18:32 04/02/24 22:05 04/02/24 20:17 04/02/24 22:05 04/02/24 18:32
Physical Exam
General: Other (58y M in mild distress due to cough / dyspnea.)
HEENT: Moist mucous membranes, PERRLA and Other (Thick neck.)
Respiratory: Other (Diffuse rales. Hacking cough during exam. Mild wheezing throughout.)
Cardiac: S1/S2 and Regular Rhythm; No Murmur
GI: Soft, Non Tender, Non Distended and Normal Bowel Sounds
Musculoskeletal: Other (3-4+ pitting edema bilateral LEs into the thighs. Nodular skin changes of the lower legs due to chronic lymphedema / venous stasis dermatitis.)
Neuro: AO x 3
Laboratory Results
-
04/02/24 20:13
04/02/24 20:13
Laboratory Results
Total Bilirubin Cancelled 04/02/24 18:48
AST Cancelled 04/02/24 18:48
ALT Cancelled 04/02/24 18:48
Alkaline Phosphatase Cancelled 04/02/24 18:48
Troponin I 0.077 ng/ml H* 04/02/24 18:48
Impression/Plan
-
A/P: Patient is a 58y M with PMH significant for dilated cardiomyopathy, chronic lymphedema and A-Fib s/p ablation who presents to ED complaining of one week of edema and dyspnea and 24 hours of cough and myalgias.
COVID-19 Infection
- Admit for further evaluation and treatment.
- 24 hours of symptoms. Unvaccinated host.
- Continue Paxlovid therapy.
- Follow proper precautions.
- Follow for clinical improvement.
Acute on Chronic HFrEF
Dilated Cardiomyopathy
- Symptoms pre-dated onset of cough / COVID.
- IV Lasix for now and follow I/Os, daily weights, etc.
- Update Echo - last assessment here is by [facility] done 08/2022 (LVEF = 35-40%)
- Cardiology evaluation for additional recommendations.
- Mild troponin abnormality likely secondary to HF - trend to peak.
Microcytic Anemia - Chronic
- Hgb is stable compared to prior values here.
- No noted / gross blood loss per patient.
- had prior EGD / colon without significant findings.
- Capsule study was recommended at that time.
- Follow H&H for changes.
- Check iron, B12, etc.
CKD III
- Stable. Renal function is at / near known baseline.
- Follow for changes with diuresis.
Paroxysmal Atrial Fibrillation
- Stable s/p ablation.
- Not maintained on OAC, etc.
Obesity due to excess calories
- Affects all aspects of care.
- Encourage healthy diet and increased exercise with goal of weight loss.
DVT Prophylaxis: Lovenox
Code Status: Full
[2024-04-03] VITALS (7 sets, daily range): BP systolic 105–164; BP diastolic 64–94; BMI 39.9; BMI 39.5
--- NOTE | 2024-04-03 00:05 | PTCARENOTE ---
Pt arrived to unit around 12:05am and was able to walk to stretcher with minimal assistance. Pt given urinal @ bedside. ADMISSION DOCUMENTATION COMPLETED RN.
[2024-04-03] MEDS: TESSALON PERLES 200 MG PO ×2 (00:15→17:07)
[2024-04-03 06:25] LABS: Hematocrit 34.7 % (39.0-52.0); Hemoglobin 10.2 g/dL (13.0-18.0); Mean Corp Hgb Conc. 29.4 g/dL (33.0-37.0); Mean Corpuscular Hgb 21.6 pg (27.0-31.0); Mean Corpuscular Volume 73.5 fL (80.0-94.0); Mean Platelet Volume 8.9 fL (7.4-10.4); Platelet Count 224 10^3/uL (130-400); Red Blood Cell Count 4.72 10^6/uL (4.70-6.10); Red Cell Dist. Width 19.7 % (11.5-14.5); White Blood Cell Count 9.9 10^3/uL (4.8-10.8)
[2024-04-03 07:12] LABS: Blood Urea Nitrogen 22 mg/dl (9-20); Calcium 8.3 mg/dl (8.4-10.2); Carbon Dioxide 28 mmol/L (22-30); Chloride 101 mmol/L (98-107); Estimated Creatinine Clearance 66 ml/min; Glucose 94 mg/dl (70-99); Iron 33 ug/dl (49-181); Potassium 3.8 mmol/L (3.5-5.1); Sodium 138 mmol/L (135-145); eGFR 53.96
[2024-04-03 07:21] LABS: Percent Saturation 9 % (20-50); Total Iron Binding Capacity 362 ug/dl (261-462)
[2024-04-03 08:00] LABS: Vitamin B12 885 pg/ml (239-931)
[2024-04-03 08:07] LABS: Free T4 1.24 ng/dl (0.78-2.19)
[2024-04-03] MEDS: COREG 25 MG PO ×2 (08:44→20:31)
[2024-04-03] MEDS: PAXLOVID 2X150 MG-100 MG DOSE PACK 1 DOSE PO ×2 (08:44→20:32)
[2024-04-03] MEDS: LASIX 40 MG IV ×2 (08:44→17:07)
[2024-04-03] MEDS: PROTONIX 40 MG PO (08:46)
--- NOTE | 2024-04-03 09:54 | WOUNDNOTE ---
[facility] RN note: Patient admitted with Covid, CHF. Patient lives with a friend.
See H&P for complete history.
PMH: CM, lymphedema, obesity, a fib (s/p ablation), gout, HF, HTN, perforated gastric ulcer (s/p exploratory lap), venous stasis, CKD3.
Wound Location and type/assessment: Patient admitted with: LE with couple small dry dermal openings/broken blisters. +2 LE edema. +Pedal pulses easily heard via portable Doppler. Coccyx/tim mild masd.
Appetite: good.
Pressure redistribution devices in place: [employer] Accumax. Patient is ambulatory.
Plan: Silicone border foam applied to drying open areas anterior le's. Vaseline applied to dry skin le's. Patient with some stool soilage on his underwear. He declined tim care or help removing soiled underwear stating 'he'll take care or it'.
Will confirm orders with Dr. Sarmiento and updated RN Jeannine.
Care plan to be updated and will follow as needed.
Note to case management requested for discharge: VN if patient qualifies.
Recommend follow up at wound care center upon discharge.
[2024-04-03 10:14] LABS: Vitamin D, 25-OH*** 18.5 ng/mL (30-80)
--- NOTE | 2024-04-03 11:40 | CON.CAR ---
Addendum entered and electronically signed by Bernabe Gustafson MD 04/03/24 14:39:
Patient evaluated in collaboration with TARIFF SUPERVISOR; agree with below.
-58-year-old noncompliant male (does not follow-up with cardiology as he is supposed to) with chronic nonischemic cardiomyopathy, previous severe MR, hypertension, atrial fibrillation status-post ablation, obesity, CKD, and diabetes admitted with
COVID.
-Received Lasix 40 mg IV yesterday and 40 mg IV this a.m.
-Will give an additional dose of Lasix 40 mg IV now, then can resume home dose of Lasix 40 mg PO daily tomorrow.
-Continue supportive care and treatment for COVID.
-Cardiology will remain available on an as-needed basis; patient will likely continue to not follow-up with Cardiology as an outpatient.
Original Note:
Consultation
Consultation Request
Date/Time Consultation Requested: 04/03/23 0004
Date/Time Consultation Performed: 04/03/23 1145
Requesting Provider: Dr. Rosario
Performing Provider: Luda ESPINOZA for Dr. Gustafson
Reason for Consultation: CHF
Medical History
-
Chief Complaint: cough, wheezing
History of Present Illness:
58 y/o male with NICM (most recent EF 35-40% 2022), severe MR, hypertension, non-obstructive CAD, AFIB s/p ablation, obesity, CKD, DM, and noncompliance who is here for cough, fatigue, and wheezing. He denies any SOB. He has BLE edema. Denies weight
gain. He is not compliant with follow-up and only compliant with some meds. He is no longer on Eliquis and tells me he does not want to be and understands that makes him at higher risk for stroke. He is here with covid-19 and we are consulted for
CHF. He is in no distress at the time of my assessment.
Past Medical History
Past Medical History: Arrhythmias, CAD, HTN, NIDDM, Valvular Disease and Other
Social History
Tobacco: Non-Smoker
Family History
Family History: Reviewed & Not Pertinent (multiple family members - mom, GM, and GP suddenly with heart disease, but at older ages)
Allergies / Home Medications
Allergy/AdvReac Type Severity Reaction Status Date / Time
No Known Allergies Allergy Verified 08/20/23 17:15
�Medication �Instructions �Recorded �Confirmed �Type
carvedilol 25 mg tablet (Coreg) 25 mg PO BID Arrhythmia #60 tabs 08/11/22 04/02/24 Rx
furosemide 40 mg tablet 40 mg PO DAILY Fluid 08/20/23 04/02/24 History
retention/Swelling
indomethacin 50 mg capsule 40 mg PO PRN PRN gout 04/02/24 04/02/24 History
Review of Systems
-
History Source: Patient
All other systems: Negative unless noted
Respiratory: Cough and Other (wheezing)
Musculoskeletal: Edema
Physical Exam
Vital Signs
Temp Pulse Resp BP Pulse Ox
98.0 F 77 18 114/85 94
04/03/24 11:02 04/03/24 11:02 04/03/24 11:02 04/03/24 11:02 04/03/24 11:02
Lab Results
04/03/24 06:16
04/03/24 06:16
Troponin I 0.080 ng/ml H* 04/03/24 06:16
Hgu-E-Frjyfivknhs Pept 5450 pg/ml 04/02/24 18:48
Physical Exam
General: Well Developed, Well Nourished and No Apparent Distress
HEENT: Normocephalic and Anicteric
Respiratory: Non Labored Respirations and Other (diminished to bases)
Cardiac: Regular Rhythm
Musculoskeletal: Edema (moderate BLE edema)
Skin: Warm and Dry
Neuro: AO x 3
Psych: Calm
Impression / Plan
-
COVID19:
-on paxlovid
-management per primary team
Ntsph-fb-zrvucnf HFrEF:
-CXR and BNP suggestive of CHF and LE edema noted
-agree with IV Lasix and monitor response- this requires intensive monitoring
-echo updated this AM, results are pending
-I did relay to him the importance of cardiology follow-up
-not on other GDMT due to CKD and non-compliance
Mitral regurgitations:
-severe on last LORY
-echo updated here pending
PAF:
-stable in SR s/p ablation
-continue coreg
-when he saw us last 09/13/22, he was on Eliquis. He is no longer on Eliquis and doesn't want to be and understands this puts him at higher risk for stroke.
Data Reviewed
-
EKG: Tracing Personally Visualized and interpreted (NSR 95 with PAC's, nonspecific T wave abnormality)
Radiology: Report Reviewed by me (CXR: Moderate cardiomegaly suspicious for a cardiomyopathy. 2. Mild bilateral perihilar ground-glass opacity and central vascular distention suggesting mild interstitial and alveolar cardiogenic pulmonary edema. )
Medical Tests (Nuc Med, Echo etc): Report Reviewed by me (Echo 08/31/22: EF 35-40%. Enlarged right ventricular size. Reduced right ventricular systolic function. Severe eccentric, posteriorly directed mitral regurgitation.)
Labs: Labs Reviewed by me
[2024-04-03 11:50] LABS: Glucose - Point of Care 136 mg/dl (70-99)
--- NOTE | 2024-04-03 12:07 | W.PN.HOSP.TC ---
Today's Communication/Plan
-
Continue Paxlovid
IV Lasix
Coreg
David bandages lower extremity
Assessment / Plan
Assessment / Plan
58-year-old male with cough shortness of breath and edema
CVS: S1-S2 normal
Chest: Bilateral rales
Abdomen: Soft, NT / Bowel sounds present
Extremities: Bilateral edema with small skin breaks, chronic venous stasis changes
CUSTODIAL ENGINEER: Non focal exam
GERD tophi middle finger on the left
# COVID-19 infection
-Unvaccinated patient
-Long discussion with the patient regarding benefits of COVID-vaccine he still does not want to get it. Complications of not getting COVID-vaccine discussed with the patient. He is also aware that with his underlying medical problems COVID
infection can get very severe.
-Started on Paxlovid-continue
-Currently on room air
-Incentive spirometry
-Isolation precautions
# Acute on chronic HFrEF
Dilated cardiomyopathy-last echo August 2022 EF 35 to 40%
Symptoms predated onset of cough or COVID symptoms
IV Lasix started
Daily weights and intake output charting
Repeat echo
David bandages lower extremity
Cardiology evaluation
# Elevated troponin-follow
Likely nonischemic myocardial injury secondary to heart failure.
# Microcytic anemia
EGD 08/21/2023-no gross lesions in the esophagus. Small hiatal hernia. No lesions in the stomach. Congestive gastropathy.
Colonoscopy 08/22/2023-inadequate prep stool in the entire colon. 4 mm polyp in the descending colon removed. Diverticulosis in the rectosigmoid colon, descending colon. Repeat colonoscopy in 1 year
Capsule study was recommended at that time.
Iron deficiency. Will provide IV iron.
# CKD stage III
Follow-up with diuresis.
Hold NSAIDs patient should not be taking it.
# Paroxysmal atrial fibrillation with history of cardioversion and ablation.
Not on anticoagulation as outpatient.
Continue Coreg.
# Nonobstructive coronary artery disease.
# Hypertension-continue Coreg.
# History of diabetes-check Accu-Cheks and hemoglobin A1c.
# Elevated TSH. Normal T4. Repeat TSH.
# History of perforated gastric ulcer-does not seem to be on PPI as outpatient especially since he was on indomethacin as needed for gout.
# Diverticulosis.
# Gout with gouty tophi. Tophi on the tip of left middle finger
# Obesity with a BMI of 39.
# DVT prophylaxis-Lovenox.
# Full code.
D/W Rn
D/w WC
Time over 50 min
Anticipated Discharge: 24 - 48 hours
Subjective/Interval History
-
Date of Service: April 03, 2024
Objective Data
-
Labs:
Laboratory Results
04/03/24
06:16
WBC 9.9
Hgb 10.2 L
Hct 34.7 L
Plt Count 224
Sodium 138
Potassium 3.8
Chloride 101
Carbon Dioxide 28
BUN 22 H
Creatinine 1.5 H
Glucose 94
Calcium 8.3 L
Vital Signs:
Vital Signs
Temp Pulse Resp BP Pulse Ox
98.0 F 77 18 114/85 96
04/03/24 11:02 04/03/24 11:02 04/03/24 11:02 04/03/24 11:02 04/03/24 12:05
I&O
04/02/24 04/03/24 04/04/24
06:59 06:59 06:59
Output Total 2500 / 2500
Balance -2500 / -2500
[2024-04-03] MEDS: DRISDOL (VITAMIN D2) 50000 UNITS PO (12:14)
[2024-04-03 12:46] LABS: Troponin I 0.057 ng/ml
[2024-04-03 13:50] LABS: Glycohemoglobin (HgbA1c) 6.5 % (4.0-5.6)
[2024-04-03 17:04] LABS: Glucose - Point of Care 123 mg/dl (70-99)
[2024-04-03] MEDS: LOVENOX 40 MG SC (17:06)
[2024-04-03 21:32] LABS: Glucose - Point of Care 180 mg/dl (70-99)
[2024-04-04 03:00] VITALS: BP 124/75
[2024-04-04 06:00] VITALS: BMI 38.6
[2024-04-04 07:10] VITALS: BP 131/84
[2024-04-04 07:55] LABS: Blood Urea Nitrogen 25 mg/dl (9-20); Calcium 8.2 mg/dl (8.4-10.2); Carbon Dioxide 30 mmol/L (22-30); Chloride 100 mmol/L (98-107); Estimated Creatinine Clearance 65 ml/min; Glucose 153 mg/dl (70-99); Potassium 3.5 mmol/L (3.5-5.1); Sodium 139 mmol/L (135-145); eGFR 53.96
[2024-04-04 08:04] LABS: Glucose - Point of Care 168 mg/dl (70-99)
[2024-04-04 08:10] LABS: Hematocrit 35.6 % (39.0-52.0); Hemoglobin 10.2 g/dL (13.0-18.0); Mean Corp Hgb Conc. 28.7 g/dL (33.0-37.0); Mean Corpuscular Hgb 21.3 pg (27.0-31.0); Mean Corpuscular Volume 74.3 fL (80.0-94.0); Mean Platelet Volume 9.3 fL (7.4-10.4); Platelet Count 206 10^3/uL (130-400); Red Blood Cell Count 4.79 10^6/uL (4.70-6.10); Red Cell Dist. Width 19.9 % (11.5-14.5); White Blood Cell Count 7.6 10^3/uL (4.8-10.8)
[2024-04-04] MEDS: VITAMIN D3 (cholecalciferol) 50 MCG PO (08:41)
[2024-04-04] MEDS: LASIX 40 MG PO (08:41)
[2024-04-04] MEDS: PROTONIX 40 MG PO (08:41)
[2024-04-04] MEDS: PAXLOVID 2X150 MG-100 MG DOSE PACK 1 DOSE PO ×2 (08:42→20:35)
[2024-04-04 08:51] LABS: Free T4 1.12 ng/dl (0.78-2.19)
[2024-04-04] MEDS: HYDROPHOR 1 APPLIC TOPICAL (09:59)
[2024-04-04] MEDS: COREG 25 MG PO ×2 (09:59→20:35)
[2024-04-04 11:10] VITALS: BP 121/75
[2024-04-04 12:22] LABS: Glucose - Point of Care 164 mg/dl (70-99)
--- NOTE | 2024-04-04 12:35 | WOUNDNOTE ---
[facility] RN note: Cliff Ponce re: recommend VN for patient if he qualifies and accepts. He has venous stasis with small open areas with knee high David wraps.
--- NOTE | 2024-04-04 14:01 | PN.CDI ---
Addendum entered and electronically signed by Kurt Sarmiento MD 04/05/24 14:13:
Documentation is complete at this time.
Original Note:
CDI
- -
CDI:
Physician Documentation Request
Admit Date: 04/02/24 23:09
Dear Doctor Torsten,
Please review the following and provide your response in the progress notes.
Clinical Indicators:
Pt admitted with COVID-19 infection /Acute on Chronic CHF exacerbation
On admission HR 105, Respirations 32
Please clarify which of the following most accurately describes the status of the patient's infection:
Viral Sepsis-POA
- Systemic manifestations of infection, with 2 or more SIRS criteria which include:
- Fever >100.4 degrees F or hypothermia < 96.8 degrees F
- Leukocytosis - WBC > 12,000 or leukopenia - WBC < 4,000 or > 10% bands
- Tachycardia > 90 beats per minute
- Tachypnea - RR > 20 breaths per minute or PaCO2 , 32mmHg
Source: Merck Manual 2013
COVID-19 infection only Without Systemic Illness
Other ( please specify)
Use of terms such as suspected, likely, concern for, or probable (associated with a specific diagnosis that is being evaluated, monitored, or treated as if it exists) are acceptable and can be coded in the inpatient setting, when documented at the
time of discharge.
Thank you,
Lena Silva RN
CDI Specialist
[facility] [employer]
Please use your independent medical judgment in providing your response.
--- NOTE | 2024-04-04 14:15 | W.PN.HOSP.TC ---
Today's Communication/Plan
-
Continue IV Lasix and follow creatinine
When creatinine starts trending up we will switch it to p.o.
Continue Paxlovid
Start Synthroid
Assessment / Plan
Assessment / Plan
58-year-old male with cough shortness of breath and edema
CVS: S1-S2 normal
Chest: Bilateral rales better
Abdomen: Soft, NT / Bowel sounds present
Extremities: Bilateral edema with small skin breaks, chronic venous stasis changes
BUSINESS SERVICES ANALYST: Non focal exam
Gouty tophi middle finger on the left
# COVID-19 infection
-Unvaccinated patient
-Long discussion with the patient regarding benefits of COVID-vaccine he still does not want to get it. Complications of not getting COVID-vaccine discussed with the patient. He is also aware that with his underlying medical problems COVID
infection can get very severe.
-Started on Paxlovid-continue
-Currently on room air
-Incentive spirometry
-Isolation precautions
# Acute on chronic HFPEF
Dilated cardiomyopathy-last echo August 2022 EF 35 to 40%-improved
Symptoms predated onset of cough or COVID symptoms
IV Lasix to be continued
Daily weights and intake output charting
Echo 04/03/2024-EF 55-60% possible basal inferior hypokinesis. Stage III diastolic dysfunction suggestive of restrictive filling pattern with increased filling pressures. Dilated RV. Severely dilated LA. Dilated RA. Moderate eccentric MR.
Pulmonary artery pressure 45 to 50 mmHg
David bandages lower extremity
Cardiology evaluation noted-signed off
# Hypothyroidism-start Synthroid 25 mcg
# Elevated troponin
Likely nonischemic myocardial injury secondary to heart failure.
# Microcytic anemia
EGD 08/21/2023-no gross lesions in the esophagus. Small hiatal hernia. No lesions in the stomach. Congestive gastropathy.
Colonoscopy 08/22/2023-inadequate prep stool in the entire colon. 4 mm polyp in the descending colon removed. Diverticulosis in the rectosigmoid colon, descending colon. Repeat colonoscopy in 1 year
Capsule study was recommended at that time.
Iron deficiency. Will provide IV iron.
# CKD stage III
Follow-up with diuresis.
Hold NSAIDs ,patient should not be taking it.
# Paroxysmal atrial fibrillation with history of cardioversion and ablation.
Not on anticoagulation as outpatient.
Continue Coreg.
# Nonobstructive coronary artery disease.
# Hypertension-continue Coreg.
# History of diabetes-check Accu-Cheks and hemoglobin A1c 6.5
# Vitamin D deficiency-replace
# History of perforated gastric ulcer-does not seem to be on PPI as outpatient especially since he was on indomethacin as needed for gout.
# Diverticulosis.
# Gout with gouty tophi. Tophi on the tip of left middle finger
# Obesity with a BMI of 39.
# DVT prophylaxis-Lovenox.
# Full code.
Anticipated Discharge: 24 - 48 hours
Subjective/Interval History
-
Date of Service: April 04, 2024
Objective Data
-
Labs:
Laboratory Results
04/04/24
07:00
WBC 7.6
Hgb 10.2 L
Hct 35.6 L
Plt Count 206
Sodium 139
Potassium 3.5
Chloride 100
Carbon Dioxide 30
BUN 25 H
Creatinine 1.5 H
Glucose 153 H
Calcium 8.2 L
Vital Signs:
Vital Signs
Temp Pulse Resp BP Pulse Ox
97.4 F 59 17 121/75 98
04/04/24 11:10 04/04/24 11:10 04/04/24 11:10 04/04/24 11:10 04/04/24 11:10
I&O
04/03/24 04/04/24 04/05/24
06:59 06:59 06:59
Intake Total 1680 / 1680
Output Total 2500 / 2500 1475 / 1475
Balance -2500 / -2500 /
[2024-04-04 15:10] VITALS: BP 134/81
--- NOTE | 2024-04-04 16:44 | PTCARENOTE ---
Received patient this am AAOx3. Pt ambulating in room independently with a steady gait. David wraps bilateral lower extremities removed this am. Hydrophor ointment applied an David wraps reapplied. Pt tolerated compression. Tolerated diet well. Pt TSH
level high at 12.20. Pt refused to take Synthroid as ordered. ' Pt stated he was not taking an more pills'. Dr. Sarmiento made aware. Made patient comfortable. Cont to assess patient status.
[2024-04-04 16:46] LABS: Glucose - Point of Care 156 mg/dl (70-99)
[2024-04-04] MEDS: LOVENOX 40 MG SC (17:50)
[2024-04-04 19:00] VITALS: BP 150/88
[2024-04-04] MEDS: ANESTHETIC LOZENGE 1 LOZENGE PO (21:28)
--- NOTE | 2024-04-04 22:53 | PTCARENOTE ---
Pt refusing nighttime accucheck. pt states 'they just checked me' referring to dinnertime accucheck. Explained to pt he is supposed to get checked nightly as well. Pt went off on tangent about how we do things here, aware of his diabetes but still
refusing. Continuing to monitor.
[2024-04-04 23:00] VITALS: BP 100/79
[2024-04-05 03:00] VITALS: BP 122/81
[2024-04-05 06:00] VITALS: BMI 38.7
[2024-04-05 07:50] VITALS: BP 149/99
[2024-04-05] MEDS: COREG 25 MG PO ×2 (08:23→22:13)
[2024-04-05] MEDS: LASIX 40 MG PO (08:24)
[2024-04-05] MEDS: HYDROPHOR 1 APPLIC TOPICAL (08:24)
[2024-04-05] MEDS: PAXLOVID 2X150 MG-100 MG DOSE PACK 1 DOSE PO ×2 (08:24→22:13)
[2024-04-05] MEDS: PROTONIX 40 MG PO (08:25)
[2024-04-05] MEDS: VITAMIN D3 (cholecalciferol) 50 MCG PO (08:25)
[2024-04-05 08:43] LABS: Glucose - Point of Care 123 mg/dl (70-99)
[2024-04-05 09:04] LABS: Blood Urea Nitrogen 27 mg/dl (9-20); Calcium 8.6 mg/dl (8.4-10.2); Carbon Dioxide 29 mmol/L (22-30); Chloride 100 mmol/L (98-107); Estimated Creatinine Clearance 69 ml/min; Glucose 91 mg/dl (70-99); Potassium 3.7 mmol/L (3.5-5.1); Sodium 140 mmol/L (135-145); eGFR 58.62
[2024-04-05 12:02] LABS: Glucose - Point of Care 115 mg/dl (70-99)
--- NOTE | 2024-04-05 13:04 | PTCARENOTE ---
Pt noted to have stool on his sheets and linens. Changed sheets, blanket and pt noted to have stool on his underwear. Encouraged pt to change his underwear and stretch pants supplied to patient. Pt also angry that diet changed from Regular to [address] GM
NA+. Dr Sarmiento aware.
[2024-04-05 13:10] VITALS: BP 131/89
[2024-04-05 15:42] VITALS: BP 158/81
[2024-04-05 17:00] LABS: Glucose - Point of Care 121 mg/dl (70-99)
[2024-04-05] MEDS: LOVENOX 40 MG SC (17:08)
--- NOTE | 2024-04-05 17:45 | W.PN.HOSP.TC ---
Today's Communication/Plan
-
IV diuresis
Assessment / Plan
Assessment / Plan
58-year-old male with cough shortness of breath and edema
CVS: S1-S2 normal
Chest: CTA
Abdomen: Soft, NT / Bowel sounds present
Extremities: Bilateral edema better
OPERATIONS EXECUTIVE: Non focal exam
Gouty tophi middle finger on the left
# COVID-19 infection
-Unvaccinated patient
-Long discussion with the patient regarding benefits of COVID-vaccine he still does not want to get it. Complications of not getting COVID-vaccine discussed with the patient. He is also aware that with his underlying medical problems COVID
infection can get very severe.
-Started on Paxlovid-continue
-Currently on room air
-Incentive spirometry
-Isolation precautions
# Acute on chronic HFPEF
Dilated cardiomyopathy-last echo August 2022 EF 35 to 40%-improved
Symptoms predated onset of cough or COVID symptoms
IV Lasix to be continued
Daily weights and intake output charting
Echo 04/03/2024-EF 55-60% possible basal inferior hypokinesis. Stage III diastolic dysfunction suggestive of restrictive filling pattern with increased filling pressures. Dilated RV. Severely dilated LA. Dilated RA. Moderate eccentric MR.
Pulmonary artery pressure 45 to 50 mmHg
David bandages lower extremity
Cardiology evaluation noted-signed off
# Hypothyroidism-start Synthroid 25 mcg
# Elevated troponin
Likely nonischemic myocardial injury secondary to heart failure.
# Microcytic anemia
EGD 08/21/2023-no gross lesions in the esophagus. Small hiatal hernia. No lesions in the stomach. Congestive gastropathy.
Colonoscopy 08/22/2023-inadequate prep stool in the entire colon. 4 mm polyp in the descending colon removed. Diverticulosis in the rectosigmoid colon, descending colon. Repeat colonoscopy in 1 year
Capsule study was recommended at that time.
Iron deficiency. Will provide IV iron.
# CKD stage III
Follow-up with diuresis.
Hold NSAIDs ,patient should not be taking it.
# Paroxysmal atrial fibrillation with history of cardioversion and ablation.
Not on anticoagulation as outpatient.
Continue Coreg.
# Nonobstructive coronary artery disease.
# Hypertension-continue Coreg.
# History of diabetes-check Accu-Cheks and hemoglobin A1c 6.5
# Vitamin D deficiency-replace
# History of perforated gastric ulcer-does not seem to be on PPI as outpatient especially since he was on indomethacin as needed for gout.
# Diverticulosis.
# Gout with gouty tophi. Tophi on the tip of left middle finger
# Obesity with a BMI of 39.
# DVT prophylaxis-Lovenox.
# Full code.
D/W RN at bed side
Anticipated Discharge: 24 - 48 hours
Subjective/Interval History
-
Date of Service: April 05, 2024
Objective Data
-
Labs:
Laboratory Results
04/05/24
07:10
Sodium 140
Potassium 3.7
Chloride 100
Carbon Dioxide 29
BUN 27 H
Creatinine 1.4 H
Glucose 91
Calcium 8.6
Vital Signs:
Vital Signs
Temp Pulse Resp BP Pulse Ox
98 F 63 18 158/81 98
04/05/24 15:42 04/05/24 15:42 04/05/24 15:42 04/05/24 15:42 04/05/24 15:42
I&O
04/04/24 04/05/24 04/06/24
06:59 06:59 06:59
Intake Total 1680 / 1680 1380 / 1380 420 / 420
Output Total 1475 / 1475 1125 / 1125 150 / 150
Balance 205 / 205 255 / 255 270 / 270
[2024-04-05 19:35] VITALS: BP 138/88
[2024-04-05 22:06] LABS: Glucose - Point of Care 123 mg/dl (70-99)
[2024-04-06] VITALS (7 sets, daily range): BP systolic 128–140; BP diastolic 74–87; BMI 39.2
[2024-04-06] MEDS: COREG 25 MG PO ×2 (08:24→20:20)
[2024-04-06] MEDS: PROTONIX 40 MG PO (08:24)
[2024-04-06] MEDS: VITAMIN D3 (cholecalciferol) 50 MCG PO (08:25)
[2024-04-06] MEDS: HYDROPHOR 1 APPLIC TOPICAL (08:25)
[2024-04-06] MEDS: LASIX 40 MG PO (08:25)
[2024-04-06 08:26] LABS: Glucose - Point of Care 99 mg/dl (70-99)
[2024-04-06] MEDS: PAXLOVID 2X150 MG-100 MG DOSE PACK 1 DOSE PO ×2 (09:22→20:20)
[2024-04-06 10:33] LABS: Blood Urea Nitrogen 24 mg/dl (9-20); Calcium 8.9 mg/dl (8.4-10.2); Carbon Dioxide 31 mmol/L (22-30); Chloride 99 mmol/L (98-107); Estimated Creatinine Clearance 75 ml/min; Glucose 194 mg/dl (70-99); Sodium 139 mmol/L (135-145); eGFR > 60.00
[2024-04-06 12:56] LABS: Glucose - Point of Care 114 mg/dl (70-99)
[2024-04-06] MEDS: FERRLECIT 110 MG IV (15:20)
--- NOTE | 2024-04-06 15:35 | W.PN.HOSP.TC ---
Today's Communication/Plan
-
Add doxycycline and Mucinex
Please weigh patient only on a standing scale there is no reason to weigh this patient on a bed scale.
Continue Lasix
Possible discharge tomorrow
Assessment / Plan
Assessment / Plan
58-year-old male with cough shortness of breath and edema
CVS: S1-S2 normal
Chest: CTA
Abdomen: Soft, NT / Bowel sounds present
Extremities: Bilateral edema better
HAND FINISHER: Non focal exam
Gouty tophi middle finger on the left
# COVID-19 infection
-Unvaccinated patient
-Long discussion with the patient regarding benefits of COVID-vaccine he still does not want to get it. Complications of not getting COVID-vaccine discussed with the patient. He is also aware that with his underlying medical problems COVID
infection can get very severe.
-Started on Paxlovid-continue
-Currently on room air
-Incentive spirometry
-Isolation precautions
# Secondary bacterial bronchitis-add doxycycline, Mucinex
# Acute on chronic HFPEF
Dilated cardiomyopathy-last echo August 2022 EF 35 to 40%-improved
Symptoms predated onset of cough or COVID symptoms
IV Lasix to be continued
Daily weights and intake output charting
Echo 04/03/2024-EF 55-60% possible basal inferior hypokinesis. Stage III diastolic dysfunction suggestive of restrictive filling pattern with increased filling pressures. Dilated RV. Severely dilated LA. Dilated RA. Moderate eccentric MR.
Pulmonary artery pressure 45 to 50 mmHg
David bandages lower extremity
Cardiology evaluation noted-signed off
Today's weight is bed scale not right. Please weigh patient only on a standing scale
# Hypothyroidism-start Synthroid 25 mcg patient refusing to take. Discussed about hypothyroidism. He thinks his sister is taking it and she is not doing well.
# Elevated troponin
Likely nonischemic myocardial injury secondary to heart failure.
# Microcytic anemia
EGD 08/21/2023-no gross lesions in the esophagus. Small hiatal hernia. No lesions in the stomach. Congestive gastropathy.
Colonoscopy 08/22/2023-inadequate prep stool in the entire colon. 4 mm polyp in the descending colon removed. Diverticulosis in the rectosigmoid colon, descending colon. Repeat colonoscopy in 1 year
Capsule study was recommended at that time.
Iron deficiency. Will provide IV iron.
# CKD stage III
Follow-up with diuresis.
Hold NSAIDs ,patient should not be taking it. Creatinine improved
# Paroxysmal atrial fibrillation with history of cardioversion and ablation.
Not on anticoagulation as outpatient.
Continue Coreg.
# Nonobstructive coronary artery disease.
# Hypertension-continue Coreg.
# History of diabetes-check Accu-Cheks and hemoglobin A1c 6.5
# Vitamin D deficiency-replace
# History of perforated gastric ulcer-does not seem to be on PPI as outpatient especially since he was on indomethacin as needed for gout.
# Diverticulosis.
# Gout with gouty tophi. Tophi on the tip of left middle finger
# Obesity with a BMI of 39.
# DVT prophylaxis-Lovenox.
# Full code.
D/W RN at bed side
Anticipated Discharge: Within 24 hours
Subjective/Interval History
-
Date of Service: April 06, 2024
Objective Data
-
Labs:
Laboratory Results
04/06/24
09:37
Sodium 139
Potassium 4.0
Chloride 99
Carbon Dioxide 31 H
BUN 24 H
Creatinine 1.3
Glucose 194 H
Calcium 8.9
Vital Signs:
Vital Signs
Temp Pulse Resp BP Pulse Ox
98.1 F 63 18 128/84 94
04/06/24 11:00 04/06/24 11:00 04/06/24 11:00 04/06/24 11:00 04/06/24 11:00
I&O
04/05/24 04/06/24 04/07/24
06:59 06:59 06:59
Intake Total 1380 / 1380 900 / 900
Output Total 1125 / 1125 150 / 150
Balance 255 / 255 750 / 750
[2024-04-06] MEDS: MUCINEX 600 MG PO ×2 (16:10→20:20)
[2024-04-06] MEDS: VIBRAMYCIN 100 MG PO ×2 (16:10→20:20)
[2024-04-06 17:10] LABS: Glucose - Point of Care 160 mg/dl (70-99)
[2024-04-06] MEDS: LOVENOX SC (20:22)
[2024-04-06 21:36] LABS: Glucose - Point of Care 145 mg/dl (70-99)
[2024-04-07 03:25] VITALS: BP 133/81
[2024-04-07 06:00] VITALS: BMI 38.2
[2024-04-07 07:20] VITALS: BP 139/89
[2024-04-07 08:09] LABS: Glucose - Point of Care 116 mg/dl (70-99)
[2024-04-07] MEDS: MUCINEX 600 MG PO (08:36)
[2024-04-07] MEDS: VITAMIN D3 (cholecalciferol) 50 MCG PO (08:36)
[2024-04-07] MEDS: VIBRAMYCIN 100 MG PO (08:36)
[2024-04-07] MEDS: LASIX 40 MG PO (08:36)
[2024-04-07] MEDS: COREG 25 MG PO (08:36)
[2024-04-07] MEDS: PROTONIX 40 MG PO (08:36)
[2024-04-07] MEDS: HYDROPHOR 1 APPLIC TOPICAL (08:37)
[2024-04-07] MEDS: PAXLOVID 2X150 MG-100 MG DOSE PACK 1 DOSE PO (08:44)
[2024-04-07 11:45] VITALS: BP 128/74
[2024-04-07 12:27] LABS: Glucose - Point of Care 210 mg/dl (70-99)
--- NOTE | 2024-04-07 14:29 | W.PN.HOSP.TC ---
Today's Communication/Plan
-
Discharge
Assessment / Plan
Assessment / Plan
58-year-old male with cough shortness of breath and edema
CVS: S1-S2 normal
Chest: CTA
Abdomen: Soft, NT / Bowel sounds present
Extremities: Bilateral edema better
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
Gouty tophi middle finger on the left
Wants to go home
# COVID-19 infection
-Unvaccinated patient
-Long discussion with the patient regarding benefits of COVID-vaccine he still does not want to get it. Complications of not getting COVID-vaccine discussed with the patient. He is also aware that with his underlying medical problems COVID
infection can get very severe.
-Completed the course of Paxlovid
-Continue doxycycline for 4 more days
-Currently on room air
-Incentive spirometry
-Isolation precautions
# Secondary bacterial bronchitis-add doxycycline, Mucinex
# Acute on chronic HFPEF
Dilated cardiomyopathy-last echo August 2022 EF 35 to 40%-improved
Symptoms predated onset of cough or COVID symptoms
IV Lasix to be continued
Daily weights and intake output charting
Echo 04/03/2024-EF 55-60% possible basal inferior hypokinesis. Stage III diastolic dysfunction suggestive of restrictive filling pattern with increased filling pressures. Dilated RV. Severely dilated LA. Dilated RA. Moderate eccentric MR.
Pulmonary artery pressure 45 to 50 mmHg
David bandages lower extremity
Cardiology evaluation noted-signed off
Weight came down further today
# Hypothyroidism-patient has been refusing to take Synthroid despite convincing him multiple times by multiple people.
# Elevated troponin
Likely nonischemic myocardial injury secondary to heart failure.
# Microcytic anemia
EGD 08/21/2023-no gross lesions in the esophagus. Small hiatal hernia. No lesions in the stomach. Congestive gastropathy.
Colonoscopy 08/22/2023-inadequate prep stool in the entire colon. 4 mm polyp in the descending colon removed. Diverticulosis in the rectosigmoid colon, descending colon. Repeat colonoscopy in 1 year
Capsule study was recommended at that time.
Iron deficiency. IV iron.
Workup as outpatient
P.o. iron for discharge
# CKD stage III
Follow-up with diuresis.
Hold NSAIDs ,patient should not be taking it. Creatinine improved
Prescription for BMP given for in 1 week
# Paroxysmal atrial fibrillation with history of cardioversion and ablation.
Not on anticoagulation as outpatient.
Continue Coreg.
# Nonobstructive coronary artery disease.
# Hypertension-continue Coreg.
# History of diabetes-check Accu-Cheks and hemoglobin A1c 6.5
# Vitamin D deficiency-replace
# History of perforated gastric ulcer-does not seem to be on PPI as outpatient especially since he was on indomethacin as needed for gout.
# Diverticulosis.
# Gout with gouty tophi. Tophi on the tip of left middle finger
# Obesity with a BMI of 39.
# DVT prophylaxis-Lovenox.
# Full code.
D/W RN at bed side
Discharge instructions reviewed with the patient
More than 30 minutes spent in discharge including
Final examination of the patient
Summarizing hospital stay
Instructions for continuing care to all relevant caregivers
Preparation of discharge records, prescriptions, and referral forms
Total time spent (in minutes): 37 min
Offered to talk to family patient declined
Anticipated Discharge: Today
Subjective/Interval History
-
Date of Service: April 07, 2024
Objective Data
-
Vital Signs:
Vital Signs
Temp Pulse Resp BP Pulse Ox
97.3 F 68 20 128/74 94
04/07/24 11:45 04/07/24 11:45 04/07/24 11:45 04/07/24 11:45 04/07/24 11:45
I&O
04/06/24 04/07/24 04/08/24
06:59 06:59 06:59
Intake Total 900 / 900 1440 / 1440
Output Total 150 / 150 950 / 950
Balance 750 / 750 490 / 490
--- NOTE | 2024-04-07 14:38 | W.DS.TRANS ---
Addendum entered and electronically signed by Kurt Sarmiento MD 04/07/24 15:48:
Dictation- [id number]
Original Note:
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
-
Discharge Instructions:
Discharge Diagnosis/Procedures COVID-19 infection
CHF
Bronchitis
Hypothyroidism
Anemia and iron deficiency
Chronic kidney disease
Atrial fibrillation
Hypertension
Diabetes
Vitamin D deficiency
History of peptic ulcer
Gout
Diet Restrict fluids to 48 oz,2 Gram Sodium,Diabetic,
Carb Controlled
Activity As tolerated
Driving Restrictions As prior to admission
Blood Work BMP in 1 week
Others Tests Thyroid function test 6 weeks
Other Services VN
Specialty Instructions Weigh Daily
Instructions: *PCP/Other Nicu Rn Heart Failure Instructions
Stand-Alone Forms:
Changes to Home Medications: Yes
Discharge Medications:
DC Medications w/original date entered in [employer]
carvedilol 25 mg tablet (Coreg) 25 mg PO BID Arrhythmia #60 tabs 08/11/22
furosemide 40 mg tablet 40 mg PO DAILY Fluid retention/Swelling 08/20/23
albuterol sulfate 90 mcg/actuation aerosol inhaler 2 puff inhalation R Q4HPRN PRN SOB #8.5 grams 04/07/24
benzonatate 100 mg capsule 200 mg (2 x 100 mg) PO TIDPRN PRN Cough #40 caps 04/07/24
cholecalciferol (vitamin D3) 50 mcg (2,000 unit) tablet 50 mcg PO DAILY Supplement #0 tabs 04/07/24
doxycycline hyclate 100 mg capsule 100 mg PO Q12 Lung/breathing issues #8 caps 04/07/24
ferrous sulfate 325 mg (65 mg iron) tablet 325 mg PO DAILY anemia #30 tabs 04/07/24
guaifenesin 600 mg tablet, extended release 12 hr 600 mg PO Q12 Lung/breathing issues #0 tabs 04/07/24
pantoprazole 40 mg tablet,delayed release 40 mg PO DAILY Gastrointestinal issue #30 tabs 04/07/24
polyethylene glycol 3350 17 gram oral powder packet (ClearLax) 17 g PO DAILY Constipation #30 ea 04/07/24
Home Medication Changes
MiraLAX, Protonix, guaifenesin, iron, doxycycline, vitamin D, benzonatate, albuterol all new
Indomethacin stopped
Pending Results: No
[2024-04-07] MEDS: FERRLECIT IV (14:45)
--- NOTE | 2024-04-07 15:15 | CM ---
Met with patient to obtain information for assessment. Patient stated that he lives with his girlfriend in a two story home with 5 steps to enter. He described himself as independent with his ADLs, personal care, dressing and bathing. 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 Patient Patient has not had any VN in the past. He denied needing them now.
He has no DME.
He has not been to a SNF.
Patient has a prescription plan and uses[facility] [place] [facility].
Patient's PCP is, Luciana Gonzalez.
Plan: case management will continue to follow and assist with discharge planning. Home with his girlfriend.
[2024-04-07 16:00] VITALS: BP 141/91
== END 2024-04-07 17:51 | disposition home or self-care (01) | DRG 177 ==
LOC: 3 WEST ACU 23:09
PROVIDERS: ADMITTING PHYSICIAN Hospitalist; ATTENDING PHYSICIAN Hospitalist; EMERGENCY PHYSICIAN Student in an Organized Health Care Education/Training Program; FAMILY PHYSICIAN Family Medicine; OTHER PHYSICIAN Internal Medicine
DX: U07.1 COVID-19 (principal); I50.33 Acute on chronic diastolic (congestive) heart failure; I42.0 Dilated cardiomyopathy; I13.0 Hypertensive heart and chronic kidney disease with heart failure and stage 1 through stage 4 chronic kidney disease, or unspecified chronic kidney disease; I5A Non-ischemic myocardial injury (non-traumatic); Z11.52 Encounter for screening for COVID-19; F17.200 Nicotine dependence, unspecified, uncomplicated; D50.9 Iron deficiency anemia, unspecified; N18.30 Chronic kidney disease, stage 3 unspecified; E11.22 Type 2 diabetes mellitus with diabetic chronic kidney disease; I48.0 Paroxysmal atrial fibrillation; E66.09 Other obesity due to excess calories; E03.9 Hypothyroidism, unspecified; E55.9 Vitamin D deficiency, unspecified; Z68.39 Body mass index [BMI] 39.0-39.9, adult; K21.9 Gastro-esophageal reflux disease without esophagitis; M10.9 Gout, unspecified; J20.8 Acute bronchitis due to other specified organisms
CPT/HCPCS: 71046; 80048; 82306; 82607; 82962; 83036; 83540; 83550; 83735; 83880; 84132; 84439; 84443; 84484; 85025; 85027; 87502; 87811; 93005; 93306; 96374; 99291; J2916

== ENCOUNTER 2024-04-23 22:52 | Inpatient (IN) | payer OTHER, SELFPAY ==
[2024-04-23 17:03] VITALS: BP 167/96
[2024-04-23 20:58] LABS: % Basophils 0.7 % (0-2); % Eosinophils 1.9 % (0-6); % Immature Granulocytes 0.3 % (0-0.5); % Lymphocytes 27.4 % (20.5-51.1); % Monocytes 11.7 % (1.7-9.3); Absolute Eosinophils 0.1 10^3/uL (0-0.7); Absolute Lymphocytes 1.6 10^3/uL (1.2-3.4); Absolute Monocytes 0.7 10^3/uL (0.1-0.6); Absolute Neutrophils 3.3 10^3/uL (1.4-6.5); Hematocrit 37.4 % (39.0-52.0); Hemoglobin 10.8 g/dL (13.0-18.0); Mean Corp Hgb Conc. 28.9 g/dL (33.0-37.0); Mean Corpuscular Hgb 21.8 pg (27.0-31.0); Mean Corpuscular Volume 75.4 fL (80.0-94.0); Mean Platelet Volume 9.8 fL (7.4-10.4); Nucleated Red Blood Cells % 0.3 % (-); Platelet Count 249 10^3/uL (130-400); Red Blood Cell Count 4.96 10^6/uL (4.70-6.10); Red Cell Dist. Width 21.2 % (11.5-14.5); White Blood Cell Count 5.7 10^3/uL (4.8-10.8)
[2024-04-23 21:02] LABS: PT 17.4 Sec (11.4-14.6)
--- NOTE | 2024-04-23 21:02 | ED.GENMED ---
History of Present Illness
General
Chief Complaint: Breathing Problem
Time Seen by Provider: 04/23/24 20:16
History of Present Illness
History of Present Illness:
58-year-old male history of atrial fibrillation, CHF, CAD, hypertension presenting with shortness of breath with exertion worsening for the past 2 weeks. Patient states that he was admitted to the hospital at the beginning the month for COVID.
Patient states that he was diuresed with decreased bilateral arm and leg swelling. Patient states that few days after discharge, he was becoming more short of breath with exertion. Patient also reports increasing bilateral upper and lower
extremity edema. Patient states that he has gained 10 pounds since discharge. Patient states he has been compliant with Lasix 40 mg daily. Patient denies chest pain, fever or chills. Patient states that his cough has since improved.
Past History
Past History
ED Past Medical History: CAD, CHF, HTN, Other (Gout) and Other (Perforated gastric ulcer 2014)
ED Past Surgical History: Urological and Other (laparotomy, repair of perforated gastric ulcer 2014)
Social History
Tobacco: Non-smoker
Alcohol: Occasional
Drug: None
Personal: Single
Employment: Employed
Phy Exam
Physical Exam
Physical Exam:
General: Alert, no acute distress
Head: NCAT
Eyes: clear conjunctiva
Neck: supple
Cardiac: regular rate and rhythm, no murmur
Lungs: clear to auscultation bilaterally. No wheezes, rales, or rhonchi. Speaking full unlabored sentences. No respiratory distress.
Abdomen: soft, nondistended nontender. No rebound or guarding.
MSK: 2+ pitting edema bilateral upper and lower extremities.
Skin: warm, dry
Neuro: Alert and oriented x3. no focal deficits
Scores
Heart Failure Risk
Heart Failure Risk Score: Yes
History of Stroke or TIA: No
History of intubation for respiratory distress: No
Heart rate on ED arrival >/= 110: No
SaO2 <90% on arrival on room air: No
HR >/=110 during 3min walk test (or too ill to perform test): No
ECG has acute ischemic changes: No
Urea >/=12mmol/L (BUN 33.6mg/dL): Yes
Serum CO2>/=35mmol/L: No
Troponin I or T elevated to WI Level (0.4mg/dL): No
NT-proBNP >/=5,000ng/L (5,000pg/ml): Yes
HF Risk Score: 2
Admission Status: MEDIUM RISK 9.2% Consider observation or discharge to home with homecare & f/u visit to PCP/Grooming Assistant, or SNF for treatment
Course
Orders/Labs/Results
Orders:
Orders
04/23/24 Dinner
Cholesterol Lowering
At Your Request: Full Participation
Does patient need a safe tray?: No
Cholesterol Lowering: Sodium, 2 Gram
04/23/24 17:07
EKG [Electrocardiogram (*1)] Urgent
Reason for Study: Shortness of Breath
CR Chest - 2 Views Urgent
Comment:
Reason For Exam: cough
04/23/24 17:08
EKG- Treatment ONCE
04/23/24 20:47
CBC/With Diff [Complete Blood Count/With Diff] Urgent
CMP [Comprehensive Metabolic Panel] Urgent
NT-proBNP Urgent
Protime/PTT Urgent
Troponin I Urgent
04/23/24 21:34
Furosemide [Lasix] 80 mg IV NOW STA
04/23/24 22:11
Admit/Transfer Patient As Directed
Co-Sign Provider:
Level of Care: Inpatient admission
Assign to:: Telemetry
Physician / Group: Maria Elena
Diagnosis: Heart Failure
Reason for Telemetry: Acute Heart Failure
Date to Stop Telemetry: 04/26/24
Time to Stop Telemetry: 11:00
Reason for Hospitalization: IV diuretics
Expected length of stay greater than two midnights?: Yes
ELOS- Estimated Length of Stay in days: 3
I certify the patient meets the requirements for IP care: Yes
PRN Pain Medication Management As Directed
May give lesser potent ordered pain med per pt: Yes
preference::
Protocol:: Medication orders for pain may be administered in a
manner that supports deferring to patient preference
when the pt is:
- Requesting an ordered lesser potent pain medication.
Least to most potent pain medications are defined
as: acetaminophen < NSAID < tramadol < opioids
(morphine, oxycodone, hydromorphone).
- Requesting a lesser dose of the same medication IF
ORDERED.
- Requesting a less intrusive route of administration
if both routes are prescribed by the provider (PO <
IV).
04/23/24 22:15
Code Status As Directed
Resuscitation Status: Full Code
04/23/24 23:15
CARDIOLOGY CONSULT Routine
Consulting Provider: Jessica Harp
Was physician already notified: No
Reason for consult: Heart Failure
Consult Notification Routine
Specialty to Notify: Cardiology
HF DIETARY CONSULT Routine
HF EDUCATOR CONSULT Routine
Comment:
Activity As Directed
Activity Level: Out of Bed-Early Mobility
Bladder Scan As Directed
Follow Bladder Retention/Intermittent Cath Algorithm?: Yes
PRN if no void in __ hours: 6
Frequency: Per Retention Algorithm
If Bladder Scan Result >: 400
then:: Straight cath
Intake/ Output As Directed
Frequency: Per unit guidelines
Patient Education As Directed
Type: CHF folder
Comment: give on admission. Document in Interdisciplinary Education record
Sleep Apnea Assessment by RN As Directed
Comment:
Physician Instructions:
Straight Cath As Directed
Frequency: Per Retention Algorithm
Additional Instructions: straight cath as needed per acute urinary retention algorithm for 24 hrs
Additional Instructions: for bladder scan greater than 400 mL
Vital Signs As Directed
Frequency: Other
Additional Instructions:: Q12 or per unit guidelines if more frequent.
Weight As Directed
Frequency: Daily
Type of Scale: Standing Scale
Comment: Daily morning weight. If unable to stand, use balanced bed scale.
Weight As Directed
Frequency: Once
Type of Scale: Standing Scale
Comment: Upon Admission. If unable to stand, use balanced bed scale.
Pulse Ox/cont/shift [RESP] Routine
Quantity: 1
Special Instructions: Daily pulse oximetry at rest. If greater than 92% at rest also obtain pulse oximetry
while ambulating as tolerated.
DX Deep Vein Thrombosis Video Routine
04/24/24 00:00
Heparin 5,000 units SC Q8
04/24/24 06:00
Basic Metabolic Panel IN AM
Cardiovascular Evaluation IN AM
Complete Blood Count/No Diff IN AM
Magnesium IN AM
TSH Reflex To Free T4 IN AM
04/24/24 08:00
Carvedilol [Coreg] 25 mg PO BID
Furosemide [Lasix] 40 mg IV BID AT 0800,1600
04/25/24 06:00
Basic Metabolic Panel IN AM
04/26/24 06:00
Basic Metabolic Panel IN AM
04/26/24 11:00
DC Protocol for Telemetry ONCE
Abnormal Lab Results
04/23/24
20:47
Hgb 10.8 L g/dL
(13.0-18.0)
Hct 37.4 L %
(39.0-52.0)
MCV 75.4 L fL
(80.0-94.0)
MCH 21.8 L pg
(27.0-31.0)
MCHC 28.9 L g/dL
(33.0-37.0)
RDW 21.2 H %
(11.5-14.5)
Absolute Monos (auto) 0.7 H 10^3/uL
(0.1-0.6)
Monocytes % 11.7 H %
(1.7-9.3)
PT 17.4 H Sec
(11.4-14.6)
BUN 40 H mg/dl
(9-20)
Creatinine 1.7 H mg/dL
(0.7-1.3)
Glucose 105 H mg/dl
(70-99)
04/23/24 20:47
04/23/24 20:47
Vital Signs
Initial and Last Documented VS:
Initial Vital Signs
Temp Pulse Resp BP Pulse Ox
97.4 F 64 18 167/96 98
04/23/24 17:03 04/23/24 17:03 04/23/24 17:03 04/23/24 17:03 04/23/24 17:03
Last Documented Vital Signs
Temp Pulse Resp BP Pulse Ox
97.4 F 64 20 133/71 98
04/23/24 17:03 04/24/24 01:45 04/24/24 01:45 04/24/24 01:00 04/24/24 01:45
MDM/Problems Addressed
Differential Diagnosis Includes:
CHF, pneumonia, viral syndrome, NSTEMI
MDM/Problems Addressed:
Results reviewed. proBNP 7410. Troponin within normal limits. Chest x-ray shows mild cardiomegaly, mild pulmonary edema. EKG shows normal sinus rhythm at 60 bpm with RI 184 QTc 497 nonspecific diffuse T wave flattening. Concerned for CHF.
Ordered Lasix IV. Discussed with hospitalist for admission
*Critical Care Note
Total Time (30-74mins, 75-104mins- exclusive of procedures): Not Applicable
ED Attending Note
-
Portions of this chart may have been created with voice recognition software.� Occasional wrong word or��sound alike� substitutions may have occurred due to the inherent limitations of voice recognition software.
Discharge Plan
Departure
Patient Disposition: Admit
Date of Disposition: 04/23/24
Time of Disposition: 21:40
Presentation/result/management discussed w/ accepting MD/DO: Hospitalist
Discharge Problem:
Acute exacerbation of CHF (congestive heart failure)
Interventions
Interventions:
*Risk Screen - Suicide Last Done: 04/23/24 17:03
*General Assessment Last Done: 04/23/24 21:08
*Neglect/Abuse Screening Last Done: 04/23/24 17:03
ED- Fall Risk Assessment Last Done: 04/23/24 21:07
*ED COVID-19 Vaccine History Last Done: 04/23/24 22:41
ED- Cardiac Assessment Last Done: 04/23/24 21:07
ED- Pulmonary Assessment Last Done: 04/23/24 21:07
[2024-04-23 21:12] LABS: Normal RBC Morphology No
[2024-04-23 21:13] LABS: ALT (SGPT) 18 U/L (0-50); AST (SGOT) 17 U/L (17-59); Albumin 3.8 g/dl (3.5-5.0); Alkaline Phosphatase 49 U/L (38-126); Blood Urea Nitrogen 40 mg/dl (9-20); Calcium 8.5 mg/dl (8.4-10.2); Carbon Dioxide 24 mmol/L (22-30); Chloride 106 mmol/L (98-107); Glucose 105 mg/dl (70-99); Potassium 4.2 mmol/L (3.5-5.1); Sodium 142 mmol/L (135-145); Total Bilirubin 0.9 mg/dl (0.2-1.3); Total Protein 6.4 g/dl (6.3-8.2); eGFR 46.44
[2024-04-23 21:14] LABS: Hypochromasia 1+; Macrocytosis 2+
[2024-04-23 21:15] LABS: Microcytosis 1+; Ovalocytes 1+
[2024-04-23 21:16] LABS: Polychromasia Slight; Stomatocytes Slight
[2024-04-23 21:22] LABS: NT-proBNP 7410 pg/ml; Troponin I 0.029 ng/ml
--- NOTE | 2024-04-23 21:44 | HPS.HSE ---
Family Physician
-
Family Physician: * NONE
Chief Complaint
-
Edema and Shortness of Breath
History of Present Illness
Patient is a 58-year-old male past medical history of paroxysmal atrial fibrillation s/p ablation, CHF, and recent admission for COVID-19 bronchitis and acute heart failure exacerbation who presents with increased swelling and shortness of breath.
Patient reports since discharge from the hospital on April 07 he has had recurrence of his bilateral upper and lower extremity edema. He reports significant swelling in the feet. He states he has gained about 10 pounds since discharge. He notes
increased dyspnea on exertion. He denies chest pain.
Medical History
Past Medical History
Past Medical History: Reports Other
Additional Past Medical History:
Paroxysmal A-Fib s/p Ablation
Dilated Cardiomyopathy
Chronic Heart Failure with Recovered EF
Essential Hypertension
GERD / PUD
Gout
Past Surgical History: Reports Other
Additional Past Surgical History:
Ex Lap / Perf Gastric Ulcer Repair (2014)
DCCV
PVI Ablation
Social History
Tobacco: Smoker (Rare cigar use.)
Alcohol: Former (No alcohol at all for at least 5 years.)
Drug: None
Family History
Family History: Other (Father: A-Fib)
Allergies / Home Medications
Allergies reflects when Allergies were last updated in [employer].
Home Medications with original date entered in [employer]
Allergy/Medication List:
Allergies
Allergy/AdvReac Type Severity Reaction Status Date / Time
No Known Allergies Allergy Verified 04/23/24 17:03
Home Medications
carvedilol 25 mg tablet (Coreg) 25 mg PO BID Arrhythmia #60 tabs 08/11/22
furosemide 40 mg tablet 40 mg PO DAILY Fluid retention/Swelling 08/20/23
cholecalciferol (vitamin D3) 50 mcg (2,000 unit) tablet 50 mcg PO DAILY Supplement #0 tabs 04/07/24
ferrous sulfate 325 mg (65 mg iron) tablet 325 mg PO DAILY anemia #30 tabs 04/07/24
guaifenesin 600 mg tablet, extended release 12 hr 600 mg PO [id number] PRN congestion 04/23/24
zinc sulfate 50 mg zinc (220 mg) tablet 50 mg PO DAILY 04/23/24
Review of Systems
-
A 12 point ROS was completed and negative except as noted: Yes
Constitutional: Denies Fever or Chills
Respiratory: Reports Trouble Breathing; Denies Cough
Cardiac: Denies Chest Pain or Palpitations
Physical Exam
Vital Signs
Vital Signs
Temp Pulse Resp BP Pulse Ox
97.4 F 68 26 167/96 95
04/23/24 17:03 04/23/24 21:08 04/23/24 21:00 04/23/24 17:03 04/23/24 21:00
Physical Exam
General: Comfortable and Conversant
HEENT: Anicteric and Moist mucous membranes
Respiratory: Decreased Breath Sounds (Bilateral Bases)
Cardiac: S1/S2, Regular Rhythm and Murmur (2/3 Systolic Murmur)
GI: Soft and Non Tender
Musculoskeletal: No Clubbing, No Cyanosis and Other (+2 pitting edema bilateral lower extremities)
Skin: Warm, Dry and Other (Gouty tophi bilateral hands)
Neuro: Awake, Alert, Oriented and Nonfocal/grossly intact
Psych: Calm
Laboratory Results
-
04/23/24 20:47
04/23/24 20:47
Laboratory Results
PT 17.4 Sec (11.4-14.6) H 04/23/24 20:47
INR 1.40 04/23/24 20:47
APTT 34.0 Sec (23.4-35.0) 04/23/24 20:47
Total Bilirubin 0.9 mg/dl (0.2-1.3) 04/23/24 20:47
AST 17 U/L (17-59) 04/23/24 20:47
ALT 18 U/L (0-50) 04/23/24 20:47
Alkaline Phosphatase 49 U/L (38-126) 04/23/24 20:47
Troponin I 0.029 ng/ml 04/23/24 20:47
Data Reviewed
-
Diagnostic Radiology: Report Reviewed by me
Lab Data: Labs Reviewed by me
Impression/Plan
-
Acute on Chronic Heart Failure with Recovered EF
-Echo April 2023: Left ventricular EF 55-60%. Stage III diastolic dysfunction suggestive of restrictive filling pattern. Moderate mitral regurgitation.
-Consult Cardiology
-Continue Lasix 40mg IV BID
-Monitor Is&Os and Daily Weights
Acute Kidney Injury, likely Cardio-Renal
-Monitor Creatinine closely with diuretics
Paroxysmal Atrial Fibrillation s/p Ablation
-Continue Coreg for rate control
-Patient is not on anticoagulation as outpatient (patient's choice)
Essential Hypertension
-Continue Coreg
Morbid Obesity due to Excess Calories
-Encourage weights loss
DVT Proph: SC Heparin
Code Status: Full Code
[2024-04-23] MEDS: LASIX 80 MG IV (21:45)
[2024-04-23 21:46] VITALS: BP 144/72
[2024-04-23 22:00] VITALS: BP 135/90
--- NOTE | 2024-04-23 22:50 | W.PN.UPDATE ---
Update Note
Progress Note Update
Attending addendum
patient seen independently
58-year-old man with a history of
atrial fibrillation,
CHF,
CAD,
hypertension
presents with shortness of breath with exertion worsening for the past 2 weeks. He was admitted to the hospital at the beginning the month for COVID. The D/C summary from that visit states:
'DISCHARGE DIAGNOSES:
1. COVID-19 infection.
2. Congestive heart failure.
3. Bronchitis.
4. Hypothyroidism.
5. Anemia and iron deficiency.
6. Chronic kidney disease.
7. Atrial fibrillation.
8. Hypertension.
9. Diabetes.
10. Vitamin D deficiency.
11. History of peptic ulcer.
12. Gout.
HOSPITAL COURSE: This is a 58-year-old male admitted because of
respiratory symptoms and was found to have COVID. He is
invaccinated. I tried to convince him to get vaccinated. He
declined. He was admitted, and he was also found to have fluid
overload and CHF for which he was started on IV Lasix. His symptoms
got better. He was also treated with Paxlovid, and he completed a
course. He also had bronchitis for which he was started on
doxycycline. His weight did come down significantly after this day.
However, he still has bilateral lower extremity edema. Compliance
with diet and fluid restriction was also discussed with the
patient.
His TSH was found to be 18. We discussed about starting Synthroid.
Even though ordered, he refused to take it as his sister had side
effects from that. He was also found to have iron deficiency for
which he was given IV iron during the hospital stay, and p.o. iron
was prescribed for discharge. He needs to continue with Protonix,
guaifenesin as well as symptomatic treatment for his respiratory
symptoms. He is being discharged home to follow up with his primary
physician.'
He was diuresed with decreased bilateral arm and leg swelling. A few days after discharge, he became more short of breath with exertion and had increasing bilateral upper and lower extremity edema. He has gained 10 pounds since discharge despite
being compliant with Lasix 40 mg daily. Patient denies chest pain, fever or chills. Patient states that his cough has since improved. At the time of my exam he was urinating copiously after receving iv diuretics. BNP > 7k. Xray in ED shows:
1. Mild cardiomegaly.
2. Mild bilateral perihilar ground-glass opacity which appears similar to 04/02/2024. Diagnostic possibilities are (1) mild cardiogenic pulmonary edema, (2) a mild inflammatory pneumonitis, or (3) subsegmental atelectasis.
3. Mild elevation of the right hemidiaphragm.
4. DISH in the thoracic spine.
Past History
CAD,
CHF (EF 30%.),
essential HTN,
Gout
Perforated gastric ulcer 2014
laparotomy,
repair of perforated gastric ulcer 2014
Exam:
Decrease sounds at lung bases with scatterd crackles
S1S2
Abd large, soft, obese
large lipoma on his back, not infected.
Calm
A/P:
1. heart failure complicated by recent covid, and significant untreated hypothyroidism
Diurese
Monitor electrolytes
Replete as needed
Encourage him to become euthyroid
Please see PA note for other details reguarding his chronic health problems
Full code
VCD for DVTp
[2024-04-23 23:00] VITALS: BP 134/82
[2024-04-24] VITALS (13 sets, daily range): BP systolic 123–161; BP diastolic 59–92; BMI 21.7; BMI 38.6
[2024-04-24] MEDS: HEPARIN 5000 UNITS SC ×4 (00:34→23:21)
[2024-04-24 06:20] LABS: Hematocrit 35.5 % (39.0-52.0); Hemoglobin 10.5 g/dL (13.0-18.0); Mean Corp Hgb Conc. 29.6 g/dL (33.0-37.0); Mean Corpuscular Hgb 22.2 pg (27.0-31.0); Mean Corpuscular Volume 74.9 fL (80.0-94.0); Mean Platelet Volume 9.8 fL (7.4-10.4); Platelet Count 240 10^3/uL (130-400); Red Blood Cell Count 4.74 10^6/uL (4.70-6.10); Red Cell Dist. Width 21.2 % (11.5-14.5); White Blood Cell Count 5.4 10^3/uL (4.8-10.8)
[2024-04-24 06:45] LABS: Blood Urea Nitrogen 36 mg/dl (9-20); Calcium 8.5 mg/dl (8.4-10.2); Carbon Dioxide 30 mmol/L (22-30); Chloride 104 mmol/L (98-107); Glucose 117 mg/dl (70-99); HDL Cholesterol 21 mg/dl; LDL Cholesterol, Calculated 85 mg/dl; Magnesium 1.9 mg/dl (1.6-2.3); Potassium 3.7 mmol/L (3.5-5.1); Sodium 143 mmol/L (135-145); Total Cholesterol 117 mg/dl (50-199); Triglyceride 58 mg/dl (10-149); Very Low Density Lipoprotein 11 mg/dl (0-30); eGFR 49.94
[2024-04-24 07:46] LABS: Free T4 1.29 ng/dl (0.78-2.19)
--- NOTE | 2024-04-24 07:50 | W.PN.HOSP.TC ---
Today's Communication/Plan
-
see PN
Assessment / Plan
Assessment / Plan
58yo M with PMHX of HTN, Afib, CHF, DM, PUD, DESHAWN, tophaceous gout, recent discharge from on 04/07/24 after CHF exacerbation and COVID-19 came with significant SOB on exertion and progressive LE swelling since his D?C. No chest pain reported, but he
barely can walk without dyspnea. Managed for HFpEF exacerbation.
A/P:
#Dyspnea on exertion 2/2 acute on chronic HFpEF exacerbation
Echo earlier this month with stage 3 diastolic dysfunction and possible basal inferior hypokinesis, moderate MR dilated RV
Lasix IV BID, follow daily weight, electrolytes and kidney function
patient does not have scale at home - advised to obtain and daily weight monitoring, however patient stated that he can see when he is getting worse by the swelling
Cardiology consult
#Subclinical hypothyroidism
TSH >10 - offered synthroid, had detailed conversation on mechanism and benefits of treatment - patient declined
#DM type 2 with nephropathy
not on meds
DM diet, accuchecks, insulin SS
would benefit from SGLT-2 inh
#Essential HTN
#DESHAWN
PUD
#Hx of Afib s/p ablation and CV
cont previous mgmt
#CKD stage 3a
nephrology as outpatient
ACEi
#tophaceous gout
allopurinol and colchicine upon d/c
#Obesity
decrease calorie intake
#b/l LE vascular insufficiency
bilateral LE stasis dermatitis without signs of cellulitis
US LE for DVT
Outpatient VascSc for venous reflux
DVT ppx on hep
Full code
I have spent at least 59min reviewing chart, test results, communication with consultants and direct patient care
Anticipated Discharge: > 48 hours
Subjective/Interval History
-
Date of Service: April 24, 2024
Objective Data
-
Labs:
Laboratory Results
04/23/24 04/24/24
20:47 06:04
WBC 5.7 5.4
Hgb 10.8 L 10.5 L
Hct 37.4 L 35.5 L
Plt Count 249 240
PT 17.4 H
INR 1.40
APTT 34.0
Sodium 142 143
Potassium 4.2 3.7
Chloride 106 104
Carbon Dioxide 24 30
BUN 40 H 36 H
Creatinine 1.7 H 1.6 H
Glucose 105 H 117 H
Calcium 8.5 8.5
Total Bilirubin 0.9
AST 17
ALT 18
Alkaline Phosphatase 49
Vital Signs:
Vital Signs
Temp Pulse Resp BP Pulse Ox
97.4 F 64 25 127/62 94
04/23/24 17:03 04/24/24 07:30 04/24/24 07:30 04/24/24 07:00 04/24/24 03:15
I&O
04/23/24 04/24/24 04/25/24
06:59 06:59 06:59
Intake Total 480 / 480
Output Total 5800 / 5800
Balance -5320 / -5320
Review of Systems
-
History Source: Patient
All other systems: Reviewed and negative
Respiratory: Reports Trouble Breathing
Physical Exam
-
General: No Apparent Distress and Obese
HEENT: Normocephalic
Respiratory: Clear to Auscultation
GI: Soft
Musculoskeletal: No Clubbing, No Cyanosis, Edema, Right Lower Extrem and Edema, Left Lower Extrem
Skin: Other (b/l LE stasis dermatitis)
Neuro: Awake, Alert, Oriented and AO x 3
Psych: Calm
[2024-04-24] MEDS: ZESTRIL 5 MG PO (09:10)
[2024-04-24] MEDS: FARXIGA 5 MG PO (09:10)
[2024-04-24] MEDS: TOPROL XL 25 MG PO (09:11)
[2024-04-24] MEDS: ZYLOPRIM 100 MG PO (09:11)
[2024-04-24] MEDS: LASIX 40 MG IV ×2 (09:12→16:05)
[2024-04-24 09:21] LABS: Glucose - Point of Care 110 mg/dl (70-99)
--- NOTE | 2024-04-24 10:15 | CON.CAR ---
Addendum entered and electronically signed by Ankit Lima MD 04/24/24 15:58:
58 yo male with NICM, now with improved LVEF 55-60%, chronic HFPEF, moderate MR, medical non-compliance is admitted with MERIDA, edema. No chest pain. He is concerned the extensive amount of salt in the streets may be increasing his sodium levels.
Exam with RRR, II/ systolic murmur at apex, 1+ LE edema. Cr 1.6.
Acute on chronic HFPEF. Continue IV lasix with close monitoring of labs and tele.
He declines most medications, including eliquis. He may agree to increased lasix dose at home.
Original Note:
Consultation
Consultation Request
Date/Time Consultation Requested: 04/23/24 2985
Date/Time Consultation Performed: 04/24/24 1400
Requesting Provider: Brandy Pal
Performing Provider: Luda ESPINOZA for Dr. Lima
Reason for Consultation: CHF
Medical History
-
Chief Complaint: SOB, edema
History of Present Illness:
58 y/o male with hx HFimpEF (was 35-40%, more recently 55-60%), NICM, moderate MR, CKD (looks like 3A range typically), AFIB s/p ablation (not on OAC due to patient declining it), hypertension, non-obstructive CAD, obesity, DM (not on medicines). He
was recently hospitalized with COVID19 and was also felt to have component of CHF. Therefore, he was diuresed briefly. He is back now with several days of MERIDA , as well as worsened LE edema and cough. He was not checking weights, but felt that he
gained weight. He has been taking his lasix daily as OP. He does report some dietary indiscretion with kerr soup. He is feeling improved with IV lasix. He denies any chest pain. Of note, historically, he is non-compliant with some of his cardiac
meds, as well as follow-up.
Past Medical History
Past Medical History: Arrhythmias, CAD, HTN, NIDDM and Valvular Disease
Social History
Tobacco: Non-Smoker
Family History
Family History: Reviewed & Not Pertinent (multiple family members - mom, GM, and GP suddenly with heart disease, but at older ages)
Allergies / Home Medications
Allergy/AdvReac Type Severity Reaction Status Date / Time
No Known Allergies Allergy Verified 04/23/24 17:03
�Medication �Instructions �Recorded �Confirmed �Type
carvedilol 25 mg tablet (Coreg) 25 mg PO BID Arrhythmia #60 tabs 08/11/22 04/23/24 Rx
furosemide 40 mg tablet 40 mg PO DAILY Fluid 08/20/23 04/23/24 History
retention/Swelling
cholecalciferol (vitamin D3) 50 50 mcg PO DAILY Supplement #0 tabs 04/07/24 04/23/24 Rx
mcg (2,000 unit) tablet
ferrous sulfate 325 mg (65 mg 325 mg PO DAILY anemia #30 tabs 04/07/24 04/23/24 Rx
iron) tablet
guaifenesin 600 mg tablet, 600 mg PO [id number] PRN congestion 04/23/24 04/23/24 History
extended release 12 hr
zinc sulfate 50 mg zinc (220 mg) 50 mg PO DAILY 04/23/24 04/23/24 History
tablet
Review of Systems
-
History Source: Patient
All other systems: Negative unless noted
Constitutional: Weight Gain
Respiratory: Cough and Trouble Breathing
Musculoskeletal: Edema
Physical Exam
Vital Signs
Temp Pulse Resp BP Pulse Ox
97.7 F 61 14 141/79 96
04/24/24 09:17 04/24/24 09:17 04/24/24 09:17 04/24/24 09:17 04/24/24 09:17
Lab Results
04/24/24 06:04
04/24/24 06:04
Troponin I 0.029 ng/ml 04/23/24 20:47
Mdr-L-Hqoiehgclch Pept 7410 pg/ml 04/23/24 20:47
Physical Exam
General: Well Developed, Well Nourished and No Apparent Distress
HEENT: Normocephalic and Anicteric
Respiratory: Other (diminished breath sounds)
Cardiac: Regular Rhythm
Musculoskeletal: Edema (moderate BLE edema)
Skin: Warm and Dry
Neuro: AO x 3
Psych: Calm
Impression / Plan
-
Wrtps-sm-fylpkuc HFimpEF:
-recent echo as below
-agree with IV Lasix, which requires intensive monitoring
-there has been some dietary indiscretion with kerr soup
-CHF education, low sodium/fluid restriction diet
-he thinks his dry weight is about 242 lbs and he is currently 246 lbs.
-continue Coreg. Other GDMT has been limited by non-compliance and CKD. I spoke with him about addition of SGLT2 inhibitor, but he declines.
JAYLAN on CKD3A:
-monitor with diuresis
Mitral regurgitation:
-moderate on recent echo
-volume plan as above
PAF:
-stable in SR s/p ablation
-continue Coreg, follow telemetry
-he stopped Eliquis on his own in the past and he and I discussed this on recent admit and he doesn't want to be on it and understands that this puts him at higher risk for stroke
DM:
-he denies DM, and when I told him he had objective evidence for this (hgba1c was 7 in the past, more recently 6.5), he didn't think that was true.
-management per primary
Data Reviewed
-
EKG: Tracing Personally Visualized and interpreted (NSR 68 BPM, NS T abnormality)
Radiology: Report Reviewed by me (CXR: CXR: Mild cardiomegaly. Mild bilateral perihilar ground-glass opacity which appears similar to 04/02/2024. Diagnostic possibilities are (1) mild cardiogenic pulmonary edema, (2) a mild inflammatory pneumonitis,
or (3) subsegmental atelectasis. Mild elevation of the right hemidiaphragm. )
Medical Tests (Nuc Med, Echo etc): Report Reviewed by me (Echo 04/03/24: EF 55-60%. Possible basal inferior hypokinesis. Stage III DD. Dilated RV, Low normal right ventricular systolic function. Severely dilated left atrium. Dilated right atrium.
Moderate, eccentric mitral regurgitation. Mild tricuspid regurgitation. Estimated PAP 45-50 mmHg.)
Labs: Labs Reviewed by me
[2024-04-24] MEDS: COLCHICINE 0.6 MG PO (11:12)
[2024-04-24 13:06] LABS: Glucose - Point of Care 73 mg/dl (70-99)
[2024-04-24 17:55] LABS: Glucose - Point of Care 95 mg/dl (70-99)
[2024-04-24 21:50] LABS: Glucose - Point of Care 116 mg/dl (70-99)
[2024-04-25 03:40] VITALS: BP 116/67
[2024-04-25 04:10] VITALS: BMI 21.7
[2024-04-25 07:24] VITALS: BP 143/80
[2024-04-25 08:05] LABS: Blood Urea Nitrogen 29 mg/dl (9-20); Calcium 8.3 mg/dl (8.4-10.2); Carbon Dioxide 29 mmol/L (22-30); Chloride 102 mmol/L (98-107); Estimated Creatinine Clearance 48 ml/min; Glucose 106 mg/dl (70-99); Magnesium 1.9 mg/dl (1.6-2.3); Potassium 3.5 mmol/L (3.5-5.1); Sodium 141 mmol/L (135-145); eGFR 53.96
--- NOTE | 2024-04-25 08:10 | W.PN.HOSP.TC ---
Today's Communication/Plan
-
cont diuresis as pr cardio
Assessment / Plan
Assessment / Plan
58yo M with PMHX of HTN, Afib, CHF, DM, PUD, DESHAWN, tophaceous gout, recent discharge from on 04/07/24 after CHF exacerbation and COVID-19 came with significant SOB on exertion and progressive LE swelling since his D?C. No chest pain reported, but he
barely can walk without dyspnea. Managed for HFpEF exacerbation.
A/P:
#Dyspnea on exertion 2/2 acute on chronic HFpEF exacerbation
Echo earlier this month with stage 3 diastolic dysfunction and possible basal inferior hypokinesis, moderate MR dilated RV
Lasix IV BID, follow daily weight, electrolytes and kidney function
patient does not have scale at home - advised to obtain and daily weight monitoring, however patient stated that he can see when he is getting worse by the swelling
Cardiology consult
#Subclinical hypothyroidism
TSH >10 - offered synthroid, had detailed conversation on mechanism and benefits of treatment - patient declined
#DM type 2 with nephropathy
not on meds
DM diet, accuchecks, insulin SS
would benefit from SGLT-2 inh
#Essential HTN
#DESHAWN
PUD
#Hx of Afib s/p ablation and CV
cont previous mgmt
#CKD stage 3a
nephrology as outpatient
ACEi
#tophaceous gout
allopurinol and colchicine upon d/c
#Obesity
decrease calorie intake
#b/l LE vascular insufficiency
bilateral LE stasis dermatitis without signs of cellulitis
US LE for DVT
Outpatient VascSc for venous reflux
DVT ppx on hep
Full code
I have spent at least 59min reviewing chart, test results, communication with consultants and direct patient care
Anticipated Discharge: 24 - 48 hours
Subjective/Interval History
-
Date of Service: April 25, 2024
Objective Data
-
Labs:
Laboratory Results
04/25/24
07:07
Sodium 141
Potassium 3.5
Chloride 102
Carbon Dioxide 29
BUN 29 H
Creatinine 1.5 H
Glucose 106 H
Calcium 8.3 L
Vital Signs:
Vital Signs
Temp Pulse Resp BP Pulse Ox
97.5 F 63 16 143/80 94
04/25/24 07:24 04/25/24 07:24 04/25/24 07:24 04/25/24 07:24 04/25/24 07:24
I&O
04/24/24 04/25/24 04/26/24
06:59 06:59 06:59
Intake Total 480 / 480 720 / 720
Output Total 5800 / 5800 4525 / 4525
Balance -5320 / -5320 -3805 / -3805
[2024-04-25 08:32] LABS: Glucose - Point of Care 109 mg/dl (70-99)
[2024-04-25] MEDS: ZYLOPRIM 100 MG PO (08:39)
[2024-04-25] MEDS: ZESTRIL 5 MG PO (08:39)
[2024-04-25] MEDS: TOPROL XL 25 MG PO (08:39)
[2024-04-25] MEDS: FARXIGA 5 MG PO (08:39)
[2024-04-25] MEDS: HEPARIN 5000 UNITS SC ×3 (08:39→23:18)
[2024-04-25] MEDS: COLCHICINE 0.6 MG PO (08:39)
[2024-04-25] MEDS: LASIX 40 MG IV ×2 (08:40→15:23)
[2024-04-25 11:04] VITALS: BP 129/90
[2024-04-25 13:17] LABS: Glucose - Point of Care 110 mg/dl (70-99)
[2024-04-25 15:15] VITALS: BMI 36.9
[2024-04-25 15:20] VITALS: BP 131/65
[2024-04-25] MEDS: ROBITUSSIN DM 5 ML PO (15:23)
[2024-04-25 17:15] LABS: Glucose - Point of Care 100 mg/dl (70-99)
[2024-04-25 19:33] VITALS: BP 134/68
[2024-04-25 21:15] LABS: Glucose - Point of Care 109 mg/dl (70-99)
[2024-04-25 23:51] VITALS: BP 137/67
[2024-04-26 03:26] VITALS: BP 134/73
[2024-04-26 05:39] VITALS: BMI 36.4
[2024-04-26 07:00] VITALS: BP 148/88
[2024-04-26 08:48] LABS: Blood Urea Nitrogen 30 mg/dl (9-20); Carbon Dioxide 32 mmol/L (22-30); Chloride 99 mmol/L (98-107); Estimated Creatinine Clearance 67 ml/min; Glucose 101 mg/dl (70-99); Potassium 3.6 mmol/L (3.5-5.1); Sodium 138 mmol/L (135-145); eGFR 58.62
[2024-04-26] MEDS: TOPROL XL 25 MG PO ×2 (08:58→20:59)
[2024-04-26] MEDS: ZYLOPRIM 100 MG PO (08:58)
[2024-04-26] MEDS: COLCHICINE 0.6 MG PO (08:59)
[2024-04-26] MEDS: LASIX 40 MG IV ×2 (08:59→15:57)
[2024-04-26] MEDS: HEPARIN 5000 UNITS SC ×2 (08:59→15:57)
[2024-04-26] MEDS: FARXIGA 5 MG PO (08:59)
[2024-04-26] MEDS: ZESTRIL 5 MG PO (09:00)
[2024-04-26 09:19] LABS: Glucose - Point of Care 121 mg/dl (70-99)
--- NOTE | 2024-04-26 10:27 | W.PN.CD ---
Addendum entered and electronically signed by Ankit Lima MD 04/26/24 12:27:
58 yo male with PMH of HF with improved LVEF, CKD3a admitted with SOB, edema. Issues with medication compliance. No chest pain. Exam with RRR, no murmurs, 2+ LE edema. Cr 1.4.
Continue IV lasix with close monitoring of labs and tele. Assess for transition to lasix 40mg PO bid tomorrow.
Original Note:
Today's Communication / Plan
-
Stop intravenous diuretic
Increase home dose of furosemide from 40 mg daily to 40 mg twice daily
Impression / Plan
-
IMPRESSION/PLAN: 58M with HFmrEF (recovered from 35-40% to 55-60%), NICM, moderate MR, CKD (looks like 3A range typically), paroxysmal atrial fibrillation status post ablation 2022 (not on OAC due to patient declining it), hypertension,
non-obstructive CAD, obesity, DM (not on medicines), & recent COVID-19 infection presents with shortness of breath.
Primary chain tender: Dr. Camara
HFrEF (recovered), EF 55-60% currently, acute on chronic
-Most recent echocardiogram as below
-He thinks dry weight is 242 pounds, I told him it is likely ~230 pounds, current weight today
-Stop intravenous diuresis, transition to furosemide 40 mg p.o. twice daily
-This exacerbation may have been prompted by dietary indiscretion (kerr soup)
-His carvedilol was transition to metoprolol succinate given drug interaction with colchicine
-CHF education including low sodium/fluid restriction diet
-GDMT is limited as he declines SGLT2i, MRA may not be the best choice given his lack of follow-up and the need for outpatient lab monitoring along with CKD
-He was provided a scale during this hospitalization to take home to track his weight
JAYLAN on CKD3a, improved, per primary service
Mitral regurgitation, moderate, continue outpatient surveillance
Paroxysmal atrial fibrillation
-Stable in SR s/p ablation
-Oral anticoagulation: None due to patient preference, stroke risk discussed, he is willing to accept this risk
-[id number] score at least 3 (CHF, hypertension, DM)
Hypertension, BP up now that he is off carvedilol, increase metoprolol succinate
Type 2 diabetes mellitus, HbA1c 6.5%, he declines this diagnosis
Obesity, BMI 36, he would benefit from GLP-1
Subclinical hypothyroidism, declines Synthroid by hospital service
SUBJECTIVE:
Denies chest pain and shortness of breath
DATA:
TTE, Apr 2024:
CONCLUSIONS
-Left ventricular ejection fraction is 55-60%, by visual assessment. Possible
basal inferior hypokinesis. Stage III diastolic dysfunction suggestive of
restrictive filling pattern and increased filling pressures.
-Dilated right ventricle. Low normal right ventricular systolic function.
-Severely dilated left atrium. Dilated right atrium.
-Moderate, eccentric mitral regurgitation.
-Mild tricuspid regurgitation. Estimated pulmonary artery pressure of 45-50
mmHg.
Compared to previous echo on 08/31/2022 ([facility]), the LVEF has improved previously
(35-40%). The previous reported degree of mitral regurgitation appears to have
improved (previously severe).
Physical Exam
Vital Signs/Labs
Vital Signs
Temp Pulse Resp BP Pulse Ox
98.2 F 71 18 148/88 96
04/26/24 07:00 04/26/24 08:58 04/26/24 07:00 04/26/24 08:58 04/26/24 07:00
04/25/24 04/26/24 04/27/24
06:59 06:59 06:59
Actual Weight 62.851 kg 105.324 kg
04/24/24 06:04
04/26/24 07:51
PT 17.4 Sec (11.4-14.6) H 04/23/24 20:47
INR 1.40 04/23/24 20:47
APTT 34.0 Sec (23.4-35.0) 04/23/24 20:47
Magnesium 2.0 mg/dl (1.6-2.3) 04/26/24 07:51
Triglycerides 58 mg/dl (10-149) 04/24/24 06:04
LDL Cholesterol, Calc 85 mg/dl 04/24/24 06:04
VLDL Cholesterol, Calc 11 mg/dl (0-30) 04/24/24 06:04
HDL Cholesterol 21 mg/dl 04/24/24 06:04
Free T4 1.29 ng/dl (0.78-2.19) 04/24/24 06:04
04/23/24
20:47
Bqi-Q-Ttdblrfvfrb Pept 7410
LAB Results
04/23/24
20:47
Troponin I 0.029
Physical Exam
Constitutional: No acute distress and Comfortable
EENT: Anicteric and Moist mucous membranes
Cardiovascular: Rhythm & rate is regular and S1S2 is normal
Respiratory: Respiratory effort normal and Lungs clear to auscul.
GI: Soft, Distention absent, Flat, Non tender and Normal bowel sounds
Neuro/Psych: AO x 3
Other: Skin (warm and dry)
Data Reviewed
-
Date of Service: April 26, 2024
[2024-04-26 11:00] VITALS: BP 156/100
--- NOTE | 2024-04-26 11:30 | CM ---
Addendum entered by Carol Cuba RN 04/27/24 12:33:
CM updated patient. CM reiterated local housing resources , [facility]. CM discussed [facility].
PLAN: home, to [facility].
Addendum entered by Carol Cuba RN 04/27/24 12:07:
[facility] is able to provide 1 free night at [facility].
Addendum entered by Carol Cuba RN 04/27/24 11:01:
CM met with patient and girlfriend at bedside. CM left message for [facility] to confirm if a hotel is available for housing assistance.
Original Note:
CM met with patient in room. Patient confirmed demographics. Patient state that he is currently homeless and living in his truck. 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 Cm provided patient with written
information on [facility].
CM was advised that patient's girlfriend will provide transportation when patient is discharged.
Cm will await discharge for further correction planning.
--- NOTE | 2024-04-26 12:26 | W.PN.HOSP.TC ---
Today's Communication/Plan
-
increase lisinopril, bmp in AM
Assessment / Plan
Assessment / Plan
58yo M with PMHX of HTN, Afib, CHF, DM, PUD, DESHAWN, tophaceous gout, recent discharge from on 04/07/24 after CHF exacerbation and COVID-19 came with significant SOB on exertion and progressive LE swelling since his D?C. No chest pain reported, but he
barely can walk without dyspnea. Managed for HFpEF exacerbation. Poorly adherent to medications, declined allopurinol and synthroid.
A/P:
#Dyspnea on exertion 2/2 acute on chronic HFpEF exacerbation
Echo earlier this month with stage 3 diastolic dysfunction and possible basal inferior hypokinesis, moderate MR dilated RV
Lasix IV BID, follow daily weight, electrolytes and kidney function
patient does not have scale at home - advised to obtain and daily weight monitoring, however patient stated that he can see when he is getting worse by the swelling
Cardiology consult
#Subclinical hypothyroidism
TSH >10 - offered Synthroid, had detailed conversation on mechanism and benefits of treatment - patient declined
#DM type 2 with nephropathy
not on meds
DM diet, accuchecks, insulin SS
would benefit from SGLT-2 inh
#Essential HTN
#DESHAWN
#PUD
#Hx of Afib s/p ablation and CV
Switch to Lisinopril and toprol with DM, repeat BMP in 2-3 weeks with PCP - patient verbalized understanding and agreement
#CKD stage 3a
nephrology as outpatient
ACEi
#tophaceous gout
allopurinol declined by patient. With HTN and CKD - not much other options
#Obesity
decrease calorie intake
#b/l LE vascular insufficiency
bilateral LE stasis dermatitis without signs of cellulitis
US LE neg for DVT
Outpatient VascSc for venous reflux
DVT ppx on hep
Full code
I have spent at least 59min reviewing chart, test results, communication with consultants and direct patient care
Anticipated Discharge: Within 24 hours
Subjective/Interval History
-
Date of Service: April 26, 2024
Objective Data
-
Labs:
Laboratory Results
04/26/24
07:51
Sodium 138
Potassium 3.6
Chloride 99
Carbon Dioxide 32 H
BUN 30 H
Creatinine 1.4 H
Glucose 101 H
Calcium 9.0
Vital Signs:
Vital Signs
Temp Pulse Resp BP Pulse Ox
97.9 F 86 18 156/100 96
04/26/24 11:00 04/26/24 11:00 04/26/24 11:00 04/26/24 11:00 04/26/24 11:01
I&O
04/25/24 04/26/24 04/27/24
06:59 06:59 06:59
Intake Total 720 / 720 960 / 960
Output Total 4525 / 4525 1825 / 1825
Balance -3805 / -3805 -865 / -865
Review of Systems
-
History Source: Patient
All other systems: Reviewed and negative
Physical Exam
-
General: No Apparent Distress
HEENT: Normocephalic
Respiratory: Clear to Auscultation
Cardiac: Regular Rhythm
Neuro: Awake, Alert, Oriented and AO x 3
Psych: Calm
[2024-04-26 13:25] LABS: Glucose - Point of Care 76 mg/dl (70-99)
[2024-04-26 15:00] VITALS: BP 129/91
[2024-04-26 17:31] LABS: Glucose - Point of Care 88 mg/dl (70-99)
[2024-04-26 19:30] VITALS: BP 157/90
[2024-04-26 21:37] LABS: Glucose - Point of Care 123 mg/dl (70-99)
[2024-04-26 23:25] VITALS: BP 104/68
[2024-04-27] MEDS: HEPARIN 5000 UNITS SC (00:03)
[2024-04-27 06:00] VITALS: BMI 35.3
[2024-04-27 07:00] VITALS: BP 154/83
[2024-04-27 07:49] LABS: Blood Urea Nitrogen 31 mg/dl (9-20); Calcium 9.5 mg/dl (8.4-10.2); Carbon Dioxide 32 mmol/L (22-30); Chloride 98 mmol/L (98-107); Estimated Creatinine Clearance 66 ml/min; Glucose 110 mg/dl (70-99); Potassium 3.7 mmol/L (3.5-5.1); Sodium 139 mmol/L (135-145); eGFR 58.62
[2024-04-27 08:20] LABS: Glucose - Point of Care 100 mg/dl (70-99)
[2024-04-27] MEDS: LASIX 40 MG IV (08:23)
[2024-04-27] MEDS: FARXIGA 5 MG PO (08:24)
[2024-04-27] MEDS: TOPROL XL 25 MG PO (08:24)
[2024-04-27] MEDS: ZESTRIL 10 MG PO (08:25)
[2024-04-27] MEDS: HEPARIN SC (08:26)
--- NOTE | 2024-04-27 09:15 | W.PN.HOSP.TC ---
Today's Communication/Plan
-
dc
Assessment / Plan
Assessment / Plan
58yo M with PMHX of HTN, Afib, CHF, DM, PUD, DESHAWN, tophaceous gout, recent discharge from on 04/07/24 after CHF exacerbation and COVID-19 came with significant SOB on exertion and progressive LE swelling since his D?C. No chest pain reported, but he
barely can walk without dyspnea. Managed for HFpEF exacerbation. Poorly adherent to medications, declined allopurinol and synthroid. Remained off O2, cardiology agreed for d/c on oral Lasix increased to BID. Referral to VascSx 2/2 b/l LE stasis
dermatitis. Medically stable for d/c. Strict low carb diet advised. Informed to schedule retinal exam, follow kidney function with family doctor and schedule podiatry appointment
A/P:
#Dyspnea on exertion 2/2 acute on chronic HFpEF exacerbation
Echo earlier this month with stage 3 diastolic dysfunction and possible basal inferior hypokinesis, moderate MR dilated RV
Lasix IV BID, follow daily weight, electrolytes and kidney function
patient does not have scale at home - advised to obtain and daily weight monitoring, however patient stated that he can see when he is getting worse by the swelling
Cardiology consult
#Subclinical hypothyroidism
TSH >10 - offered Synthroid, had detailed conversation on mechanism and benefits of treatment - patient declined
#DM type 2 with nephropathy
not on meds
DM diet, accuchecks, insulin SS
would benefit from SGLT-2 inh
#Essential HTN
#DESHAWN
#PUD
#Hx of Afib s/p ablation and CV
Switch to Lisinopril and toprol with DM, repeat BMP in 2-3 weeks with PCP - patient verbalized understanding and agreement
#CKD stage 3a
nephrology as outpatient
ACEi
#tophaceous gout
allopurinol declined by patient. With HTN and CKD - not much other options
#Obesity
decrease calorie intake
#b/l LE vascular insufficiency
bilateral LE stasis dermatitis without signs of cellulitis
US LE neg for DVT
Outpatient VascSc for venous reflux
DVT ppx on hep
Full code
I have spent at least 36min reviewing chart, test results, communication with consultants and direct patient care
Anticipated Discharge: Today
Subjective/Interval History
-
Date of Service: April 27, 2024
Objective Data
-
Labs:
Laboratory Results
04/27/24
06:55
Sodium 139
Potassium 3.7
Chloride 98
Carbon Dioxide 32 H
BUN 31 H
Creatinine 1.4 H
Glucose 110 H
Calcium 9.5
Vital Signs:
Vital Signs
Temp Pulse Resp BP Pulse Ox
97.5 F 73 18 154/83 95
04/27/24 07:00 04/27/24 08:25 04/27/24 07:00 04/27/24 08:25 04/27/24 07:00
I&O
04/26/24 04/27/24 04/28/24
06:59 06:59 06:59
Intake Total 960 / 960 960 / 960
Output Total 1825 / 1825 2150 / 2150 600 / 600
Balance -865 / -865 -1190 / -1190 -600 / -600
Review of Systems
-
History Source: Patient
All other systems: Reviewed and negative
Physical Exam
-
General: No Apparent Distress
HEENT: Normocephalic
Respiratory: Clear to Auscultation
GI: Soft, Nontender and Nondistended
Musculoskeletal: No Clubbing, No Cyanosis and No Edema
Skin: Warm and Other (b/l LE stasis dermatitis)
Neuro: Awake, Alert, Oriented and AO x 3
Psych: Calm
--- NOTE | 2024-04-27 09:20 | W.DCSUMMARY ---
Discharge Summary
Discharge Data
Date of Admission: 04/23/24
Date of Discharge: 04/27/24
-
Pending Results: No
Hospital Course
58yo M with PMHX of HTN, Afib, CHF, DM, PUD, DESHAWN, tophaceous gout, recent discharge from on 04/07/24 after CHF exacerbation and COVID-19 came with significant SOB on exertion and progressive LE swelling since his D?C. No chest pain reported, but he
barely can walk without dyspnea. Managed for HFpEF exacerbation. Poorly adherent to medications, declined allopurinol and synthroid. Remained off O2, cardiology agreed for d/c on oral Lasix increased to BID. Referral to VascSx 2/2 b/l LE stasis
dermatitis. Medically stable for d/c. Strict low carb diet advised. Informed to schedule retinal exam, follow kidney function with family doctor and schedule podiatry appointment. Instructed to repeat BMP in 3 weks due to increased Lasix and new
Lisinopril - patient verbalized understanding of the instructions
I have spent at least 36min reviewing chart, test results, communication with consultants and direct patient care
Patient was managed for:
#Dyspnea on exertion 2/2 acute on chronic HFpEF exacerbation
#Subclinical hypothyroidism
#DM type 2 with nephropathy
#Essential HTN
#DESHAWN
#PUD
#Hx of Afib s/p ablation and CV
#CKD stage 3a
#tophaceous gout
#Obesity
#b/l LE vascular insufficiency
Discharge Plan
-
Patient Disposition: Home (Routine Discharge)
Discharge Diagnosis/Procedures: CHF
Diet: Diabetic, Carb Controlled
Activity: As tolerated
Driving Restrictions: As prior to admission
Specialty Instructions: Weigh Daily- Call MD for wt gain/loss 3 lbs overnight/5 lbs in 1 week
Activity Restrictions/Additional Instructions:
follow BMP in 3 weeks with family doctor
Instructions: *CBC Heart Failure Instructions
Referrals:
Maximilian Sanches III, MD [Active] - in three to four weeks (for venous insufficiency)
Chacorta Camara MD [Active] - 05/20/24 3:40 pm
NONE,* [Family Provider] -
Prescriptions:
New
lisinopril 5 mg Tablet
10 mg PO DAILY Qty: 30 0RF
metoprolol succinate 25 mg Tablet Extended Release 24 Hr
25 mg PO BID Qty: 30 0RF
dapagliflozin propanediol 5 mg Tablet
5 mg PO DAILY Qty: 30 0RF
furosemide [Lasix] 40 mg tablet
40 mg PO BID Qty: 60 0RF
Continued
cholecalciferol (vitamin D3) 50 mcg (2,000 unit) Tablet
50 mcg PO DAILY Qty: 0 0RF
ferrous sulfate 325 mg (65 mg iron) tablet
325 mg PO DAILY Qty: 30 0RF
zinc sulfate 50 mg zinc (220 mg) Tablet
50 mg PO DAILY
Discontinued
carvedilol [Coreg] 25 mg tablet
25 mg PO BID Qty: 60 0RF
furosemide 40 mg tablet
40 mg PO DAILY
guaifenesin 600 mg tablet extended release 12hr
600 mg PO [id number] PRN (Reason: congestion)
Discharge Orders:
Discharge Patient (As Directed); Ordered 04/27/24
Ordered By: Gonzalo Fitch
Discharge Date and Time
Print Language: KINYARWANDA
[2024-04-27 11:40] LABS: Glucose - Point of Care 80 mg/dl (70-99)
[2024-04-27 13:00] VITALS: BP 124/81
== END 2024-04-27 13:30 | disposition home or self-care (01) | DRG 291 ==
LOC: 1 ACUTE 22:52
PROVIDERS: Physician Assistant Medical; ADMITTING PHYSICIAN Internal Medicine; ATTENDING PHYSICIAN Internal Medicine; EMERGENCY PHYSICIAN Emergency Medicine; OTHER PHYSICIAN Internal Medicine
DX: I13.0 Hypertensive heart and chronic kidney disease with heart failure and stage 1 through stage 4 chronic kidney disease, or unspecified chronic kidney disease (principal); I50.33 Acute on chronic diastolic (congestive) heart failure; N17.9 Acute kidney failure, unspecified; E03.8 Other specified hypothyroidism; N18.31 Chronic kidney disease, stage 3a; E11.22 Type 2 diabetes mellitus with diabetic chronic kidney disease; E11.40 Type 2 diabetes mellitus with diabetic neuropathy, unspecified; M1A.9XX1 Chronic gout, unspecified, with tophus (tophi); I48.0 Paroxysmal atrial fibrillation; D50.9 Iron deficiency anemia, unspecified; K21.9 Gastro-esophageal reflux disease without esophagitis; F17.200 Nicotine dependence, unspecified, uncomplicated; I34.0 Nonrheumatic mitral (valve) insufficiency; E66.01 Morbid (severe) obesity due to excess calories; Z68.35 Body mass index [BMI] 35.0-35.9, adult; I25.10 Atherosclerotic heart disease of native coronary artery without angina pectoris; Z91.199 Patient's noncompliance with other medical treatment and regimen due to unspecified reason; Z79.899 Other long term (current) drug therapy; Z87.11 Personal history of peptic ulcer disease; I87.2 Venous insufficiency (chronic) (peripheral)
CPT/HCPCS: 71046; 80048; 80053; 80061; 82962; 83735; 83880; 84439; 84443; 84484; 85025; 85027; 85610; 85730; 93005; 93970; 96374; 99285

== ENCOUNTER 2024-04-29 11:24 | Emergency (ER) | payer MEDICAID, SELFPAY ==
--- NOTE | 2024-04-29 11:27 | ED.GENMED ---
ED Provider Triage
<Farida Saleem NP - Last Filed: 04/29/24 11:40>
-
Patient seen by provider in Triage?: Seen in Triage
Attestation: A medical screening examination has been initiated by a qualified medical provider. Based on the assessment performed at this time, it has been determined that an emergent medical condition may exist and the patient has been informed
that further medical evaluation and possible additional diagnostic testing may be needed.
HPI: 58 yo male with history of A-fib, cardiomyopathy, CHF, CAD, HTN states he is here to get 'my meds straightened out.' About 1/2-hour ago while sitting in the waiting room he started feeling palpitations radiating up to his neck and he thinks he
is in atrial fibrillation.
Patient was discharged 2 days ago from , he has not had his meds since because he cannot get, as he cannot afford them.
He was sent to homeless skilled nursing which he stay last night, the people from the skilled nursing brought him in this morning to try to get his medicines straightened out and he happened to go into atrial fibrillation
Denies SOB, CP.
EKG in Triage: HR 165 SVT BP 129/83
GENERAL: Alert , in no apparent distress
EYE: No visual abnormalities.
NECK: Trachea midline
ENT: No visible abnormalities.
LUNGS: No acute respiratory distress
NEUROLOGICAL: Alert and oriented
SKIN: Skin intact. No visible changes.
MUSCULOSKELETAL: Moving extremities normally
PSYCH: Normal and appropriate interaction.
This is a medical evaluation conducted in person to initiate diagnostic evaluation and provide initial therapeutics. Please see further documentation by the treating clinician.
History of Present Illness
<Farida Saleem NP - Last Filed: 04/29/24 11:40>
General
Chief Complaint: Heart Rate Problem
Time Seen by Provider: 04/29/24 11:51
<Rishi Torres MD - Last Filed: 05/01/24 09:49>
General
Source: patient
Exam Limitations: none
History of Present Illness
History of Present Illness:
Patient discharged 2 days ago after admission for heart failure. He cannot afford his medications and has not taken it for 2 days. He came here primarily for case management help to get his medications. However while in the waiting room,
patient's heart rate went up significantly. Denies syncope chest pain shortness of breath or other complaints. Still feels relatively well.
Past History
<Farida Saleem NP - Last Filed: 04/29/24 11:40>
Past History
ED Past Medical History: CAD, CHF, HTN, Other (Gout) and Other (Perforated gastric ulcer 2014)
ED Past Surgical History: Urological and Other (laparotomy, repair of perforated gastric ulcer 2014)
Social History
Tobacco: Non-smoker
Alcohol: Occasional
Drug: None
Personal: Single
Employment: Employed
Review of Systems
<Rishi Torres MD - Last Filed: 05/01/24 09:49>
Review of Systems
All Other Systems: Not applicable
Constitutional: Denies fever or chills
Respiratory: Denies trouble breathing
Cardiac: Denies chest pain or syncope
Phy Exam
<Rishi Torres MD - Last Filed: 05/01/24 09:49>
Physical Exam
Physical Exam:
GENERAL: Alert and oriented in no apparent distress
EYE: Orbits normal.
NECK: Supple, no significant adenopathy.
ENT: Pharynx without erythema
CARDIAC: Tachycardic and regular no murmur
LUNGS: Clear breath sounds,normal
ABDOMEN: Soft, without focal tenderness or distention
NEUROLOGICAL: Alert and oriented , grossly non-focal
SKIN: Warm and dry, no rash or lesion, no discoloration, skin intact.
MUSCULOSKELETAL: Moderate bilateral lower extremity edema
PSYCH: Normal and appropriate interaction.
Sepsis
<Rishi Torres MD - Last Filed: 05/01/24 09:49>
Sepsis Screening
Sepsis Assessment: Sepsis Ruled Out
Sepsis Screen
Sepsis Screen: Sepsis Ruled Out
Date: 05/01/24
Time: 09:49
Course
<Farida Saleem NP - Last Filed: 04/29/24 11:40>
Orders/Labs/Results
Orders:
Orders
04/29/24 00:00
Furosemide [Lasix] 40 mg PO BID@0800,1600
Lisinopril [Zestril] 10 mg PO DAILY
Metoprolol Xl [Toprol Xl] 25 mg PO BID
04/29/24 11:25
Electrocardiogram (*1) Urgent
Reason for Study: Palpitations
EKG- Treatment ONCE
04/29/24 11:57
Adenosine [Adenocard] 6 mg .ROUTE .STK-MED ONE
04/29/24 12:02
EKG [Electrocardiogram (*1)] Urgent
Reason for Study: Tachycardia
EKG- Treatment ONCE
04/29/24 12:06
Case Management Consult ONCE
Case Management Consult: Other
Complete Blood Count/With Diff Urgent
Comprehensive Metabolic Panel Urgent
Free T4 Urgent
NT-proBNP Urgent
TSH Reflex To Free T4 Urgent
Troponin I Urgent
04/29/24 12:11
Furosemide [Lasix] 40 mg PO NOW STA
Lisinopril [Zestril] 10 mg PO NOW STA
Metoprolol Xl [Toprol Xl] 25 mg PO NOW STA
Abnormal Lab Results
04/29/24
12:06
Hgb 12.2 L g/dL
(13.0-18.0)
MCV 75.1 L fL
(80.0-94.0)
MCH 21.8 L pg
(27.0-31.0)
MCHC 29.0 L g/dL
(33.0-37.0)
RDW 21.4 H %
(11.5-14.5)
Absolute Monos (auto) 0.8 H 10^3/uL
(0.1-0.6)
Lymphocytes % 17.7 L %
(20.5-51.1)
Monocytes % 9.5 H %
(1.7-9.3)
BUN 34 H mg/dl
(9-20)
Creatinine 1.5 H mg/dL
(0.7-1.3)
Glucose 212 H mg/dl
(70-99)
Troponin I 0.041 H* ng/ml
TSH (Reflex) 12.70 H uIU/ml
(0.47-4.68)
04/29/24 12:06
04/29/24 12:06
Vital Signs
Initial and Last Documented VS:
Initial Vital Signs
Temp Pulse Resp BP Pulse Ox
98.1 F 165 25 129/88 97
04/29/24 11:40 04/29/24 11:40 04/29/24 11:40 04/29/24 11:40 04/29/24 11:40
Last Documented Vital Signs
Temp Pulse Resp BP Pulse Ox
98.1 F 79 18 128/99 92
04/29/24 11:40 04/29/24 14:00 04/29/24 14:00 04/29/24 14:00 04/29/24 14:00
<Rishi Torres MD - Last Filed: 05/01/24 09:49>
Orders/Labs/Results
Orders:
Orders
04/29/24 00:00
Furosemide [Lasix] 40 mg PO BID@0800,1600
Lisinopril [Zestril] 10 mg PO DAILY
Metoprolol Xl [Toprol Xl] 25 mg PO BID
04/29/24 11:25
Electrocardiogram (*1) Urgent
Reason for Study: Palpitations
EKG- Treatment ONCE
04/29/24 11:57
Adenosine [Adenocard] 6 mg .ROUTE .STK-MED ONE
04/29/24 12:02
EKG [Electrocardiogram (*1)] Urgent
Reason for Study: Tachycardia
EKG- Treatment ONCE
04/29/24 12:06
Case Management Consult ONCE
Case Management Consult: Other
Complete Blood Count/With Diff Urgent
Comprehensive Metabolic Panel Urgent
Free T4 Urgent
NT-proBNP Urgent
TSH Reflex To Free T4 Urgent
Troponin I Urgent
04/29/24 12:11
Furosemide [Lasix] 40 mg PO NOW STA
Lisinopril [Zestril] 10 mg PO NOW STA
Metoprolol Xl [Toprol Xl] 25 mg PO NOW STA
Abnormal Lab Results
04/29/24
12:06
Hgb 12.2 L g/dL
(13.0-18.0)
MCV 75.1 L fL
(80.0-94.0)
MCH 21.8 L pg
(27.0-31.0)
MCHC 29.0 L g/dL
(33.0-37.0)
RDW 21.4 H %
(11.5-14.5)
Absolute Monos (auto) 0.8 H 10^3/uL
(0.1-0.6)
Lymphocytes % 17.7 L %
(20.5-51.1)
Monocytes % 9.5 H %
(1.7-9.3)
BUN 34 H mg/dl
(9-20)
Creatinine 1.5 H mg/dL
(0.7-1.3)
Glucose 212 H mg/dl
(70-99)
Troponin I 0.041 H* ng/ml
TSH (Reflex) 12.70 H uIU/ml
(0.47-4.68)
04/29/24 12:06
04/29/24 12:06
Vital Signs
Initial and Last Documented VS:
Initial Vital Signs
Temp Pulse Resp BP Pulse Ox
98.1 F 165 25 129/88 97
04/29/24 11:40 04/29/24 11:40 04/29/24 11:40 04/29/24 11:40 04/29/24 11:40
Last Documented Vital Signs
Temp Pulse Resp BP Pulse Ox
98.1 F 79 18 128/99 92
04/29/24 11:40 04/29/24 14:00 04/29/24 14:00 04/29/24 14:00 04/29/24 14:00
<Rishi Torres MD - Last Filed: 05/01/24 09:49>
*Pulse Oximetry
Patient hypoxic: no
*EKG
Interpreted by ED Provider?: Yes
Interpretation: abnormal
Comparison EKG: changes noted
Heart Rate: 165
Rate: tachycardiac
Rhythm: SVT
[place]: normal axis
Interval: normal interval
QRS Pattern: normal QRS
Ischemia: ST depression
*Service Secretary Interpretation
Rate: tachycardiac
Interpretation: abnormal
Heart Rate: 160
Rhythm: SVT
*Critical Care Note
Total Time (30-74mins, 75-104mins- exclusive of procedures): 15
<Rishi Torres MD - Last Filed: 05/01/24 09:49>
Update Note
Update Note:
Reviewed previous records. Patient is remained stable. Appears more likely to be in SVT. Was about to give adenosine after discussion with cardiology when patient self converted. Repeat EKG sinus rhythm PACs. No acute changes. LVH. Await case
management's help with medications and and stable for discharge
ED Attending Note
<Farida Saleem NP - Last Filed: 04/29/24 11:40>
-
Portions of this chart may have been created with voice recognition software.� Occasional wrong word or��sound alike� substitutions may have occurred due to the inherent limitations of voice recognition software.
Discharge Plan
Departure
Patient Disposition: Home (Routine Discharge)
Date of Disposition: 04/29/24
Time of Disposition: 13:57
Patient with high blood pressure during this ER visit?: Yes
Discharge Problem:
Diastolic CHF, svt
Instructions: Supraventricular tachycardia (SVT), Heart Failure ED, BLOOD PRESSURE
Prescriptions:
No Action
cholecalciferol (vitamin D3) 50 mcg (2,000 unit) Tablet
50 mcg PO DAILY Qty: 0 0RF
ferrous sulfate 325 mg (65 mg iron) tablet
325 mg PO DAILY Qty: 30 0RF
zinc sulfate 50 mg zinc (220 mg) Tablet
50 mg PO DAILY
lisinopril 5 mg Tablet
10 mg PO DAILY Qty: 30 0RF
metoprolol succinate 25 mg Tablet Extended Release 24 Hr
25 mg PO BID Qty: 30 0RF
dapagliflozin propanediol 5 mg Tablet
5 mg PO DAILY Qty: 30 0RF
furosemide [Lasix] 40 mg tablet
40 mg PO BID Qty: 60 0RF
Referrals:
Luciana Gonzalez DO [Family Provider] - Follow up in 2-3 days
Activity Restrictions/Additional Instructions:
Follow-up per cardiology and the hospitalist
Interventions
Interventions:
*Risk Screen - Suicide Last Done: 04/29/24 11:40
*General Assessment Last Done: 04/29/24 11:55
*Neglect/Abuse Screening Last Done: 04/29/24 11:57
ED- Fall Risk Assessment Last Done: 04/29/24 11:58
*ED COVID-19 Vaccine History Last Done: 04/29/24 11:55
*Nursing Disposition Last Done: 04/29/24 14:21
ED- Cardiac Assessment Last Done: 04/29/24 12:00
ED- Pulmonary Assessment Last Done: 04/29/24 12:45
Discharge Date and Time
Discharge Date/Time: 04/29/24 14:32
Print Language: SETSWANA
[2024-04-29 11:40] VITALS: BP 129/88
[2024-04-29 11:50] VITALS: BP 126/95
[2024-04-29 11:54] VITALS: BMI 37.4
[2024-04-29 12:00] VITALS: BP 134/74
[2024-04-29] MEDS: ZESTRIL 10 MG PO (12:28)
[2024-04-29] MEDS: LASIX 40 MG PO (12:28)
[2024-04-29] MEDS: TOPROL XL 25 MG PO (12:29)
--- NOTE | 2024-04-29 12:32 | CM ---
Addendum entered by Ani Mustafa 04/29/24 12:32:
Patient is currently in ED, medications will be filled and billed to [facility], patient to follow up with Cardiology office for Dapaglifozin. Patient has $1 to use [facility] transport.
Original Note:
manager of hospital received a call from seamus, caller was approached by patient who stated that he has not been able to obtain his medications, case reviewer reviewed patient medications and spoke with [facility] pharmacy, case reviewer also spoke with [facility], and case reviewer would need new prescriptions for [facility] written by physician. manager of hospital reached out to cardiology and per cardiology patient can contact cardiac office for assist with Dapaglifozin.
Patient is homeless has been living in his care, [facility] usp last night, [facility], patient's girlfriend is still supporting patient however patient cannot stay with his girlfriend per landlord.
manager of hospital took patient to [facility] and they provided patient with application paperwork. Patient also has [facility] schedule.
Plan; Attempting to provide patient with medications, patient was discharged on Sunday from the hospital.
[2024-04-29 12:44] LABS: ALT (SGPT) 20 U/L (0-50); AST (SGOT) 27 U/L (17-59); Albumin 4.3 g/dl (3.5-5.0); Alkaline Phosphatase 45 U/L (38-126); Blood Urea Nitrogen 34 mg/dl (9-20); Calcium 9.4 mg/dl (8.4-10.2); Carbon Dioxide 30 mmol/L (22-30); Chloride 98 mmol/L (98-107); Estimated Creatinine Clearance 60 ml/min; Glucose 212 mg/dl (70-99); Potassium 4.6 mmol/L (3.5-5.1); Sodium 139 mmol/L (135-145); Total Bilirubin 0.9 mg/dl (0.2-1.3); Total Protein 6.9 g/dl (6.3-8.2); eGFR 53.96
[2024-04-29 12:47] LABS: % Basophils 0.7 % (0-2); % Eosinophils 3.6 % (0-6); % Immature Granulocytes 0.3 % (0-0.5); % Lymphocytes 17.7 % (20.5-51.1); % Monocytes 9.5 % (1.7-9.3); % Neutrophils 68.2 % (42.2-75.2); Absolute Basophils 0.1 10^3/uL (0-0.2); Absolute Eosinophils 0.3 10^3/uL (0-0.7); Absolute Lymphocytes 1.5 10^3/uL (1.2-3.4); Absolute Monocytes 0.8 10^3/uL (0.1-0.6); Absolute Neutrophils 5.9 10^3/uL (1.4-6.5); Hemoglobin 12.2 g/dL (13.0-18.0); Mean Corpuscular Hgb 21.8 pg (27.0-31.0); Mean Corpuscular Volume 75.1 fL (80.0-94.0); Mean Platelet Volume 9.3 fL (7.4-10.4); Nucleated Red Blood Cells % 0 % (-); Platelet Count 250 10^3/uL (130-400); Red Blood Cell Count 5.59 10^6/uL (4.70-6.10); Red Cell Dist. Width 21.4 % (11.5-14.5); White Blood Cell Count 8.7 10^3/uL (4.8-10.8)
[2024-04-29 12:50] LABS: NT-proBNP 1260 pg/ml
[2024-04-29 13:00] VITALS: BP 123/80
[2024-04-29 13:17] LABS: Troponin I 0.041 ng/ml
[2024-04-29 13:54] LABS: Free T4 1.19 ng/dl (0.78-2.19)
[2024-04-29 14:00] VITALS: BP 128/99
== END 2024-04-29 14:32 | disposition home or self-care (01) ==
LOC: EMR 11:24
PROVIDERS: Registered Nurse; EMERGENCY PHYSICIAN Emergency Medicine; FAMILY PHYSICIAN Family Medicine
DX: I50.30 Unspecified diastolic (congestive) heart failure (principal); I47.10 Supraventricular tachycardia, unspecified; I48.91 Unspecified atrial fibrillation; I42.9 Cardiomyopathy, unspecified; I25.10 Atherosclerotic heart disease of native coronary artery without angina pectoris; I11.0 Hypertensive heart disease with heart failure; Z59.01 Sheltered homelessness
CPT/HCPCS: 99283; 80053; 83880; 84439; 84443; 84484; 85025; 93005; J0153

== ENCOUNTER 2024-05-14 07:14 | Emergency (ER) | payer MEDICAID, SELFPAY ==
[2024-05-14 07:15] VITALS: BP 170/106
[2024-05-14 08:20] VITALS: BP 160/93
[2024-05-14 08:29] VITALS: BP 160/93
[2024-05-14 08:38] LABS: COVID-19 Antigen Negative (Negative)
--- NOTE | 2024-05-14 08:40 | ED.GENMED ---
History of Present Illness
General
Chief Complaint: Breathing Problem
Time Seen by Provider: 05/14/24 08:05
History of Present Illness
History of Present Illness:
58-year-old male with history of atrial fibrillation, CHF, CAD, diabetes, stasis dermatitis to lower extremities presenting to the emergency department for shortness of breath. Patient reports symptoms for the past several days. Notes dyspnea on
exertion. He also reports that he has been feeling himself going in and out of A-fib, status post ablation. Patient with recent hospitalization from 04/23 to 04/27 for CHF, at which time patient's Lasix were increased. He returned to the hospital
04/29 because he could not afford his medications, with case management getting involved. Patient is homeless. He reports compliance with his medications today. Denies associated chest pain. He has been having a cough, nonproductive. Denies
fever. He is concerned about his recent medication adjustments. Denies additional acute medical complaints.
Past History
Past History
ED Past Medical History: CAD, CHF, HTN, Other (Gout) and Other (Perforated gastric ulcer 2014)
ED Past Surgical History: Urological and Other (laparotomy, repair of perforated gastric ulcer 2014)
Social History
Tobacco: Non-smoker
Alcohol: Occasional
Drug: None
Personal: Single
Employment: Employed
Phy Exam
Physical Exam
Physical Exam:
General: Well-appearing, no clinical signs of dehydration, nontoxic and in no acute distress
HEENT: protecting airway
Neck: appears supple
CV: Normal heart rate, regular rhythm
Resp: No accessory muscle use, no increased work of breathing, lungs clear to auscultation bilaterally
Abd: no distension
Extremities: No deformities, chronic stasis tenderness to bilateral lower extremities, asymmetrical swelling
Neuro: alert, no focal neurologic deficit
: deferred
Rectal: deferred
Psych: Normal affect
Skin: Intact
Scores
Heart Failure Risk
Heart Failure Risk Score: Not Applicable
Course
Orders/Labs/Results
Orders:
Orders
05/14/24 07:14
ECG [Electrocardiogram (*1)] Urgent
Reason for Study: Shortness of Breath
EKG- Treatment ONCE
05/14/24 08:06
COVID-19 Antigen Urgent
Source: Nasal Swab
Influenza A+B Rapid Molecular Urgent
RUPERTO Source: Nasal Swab
Specimen Description:
05/14/24 08:23
CMP [Comprehensive Metabolic Panel] Urgent
Complete Blood Count/With Diff Urgent
Pro-BNP [NT-proBNP] Urgent
05/14/24 08:25
CXR2 [CR Chest - 2 Views ] Urgent
Comment:
Reason For Exam: SOB
05/14/24 10:14
Furosemide [Lasix] 40 mg PO NOW STA
Abnormal Lab Results
05/14/24
08:23
RBC 4.63 L 10^6/uL
(4.70-6.10)
Hgb 10.3 L g/dL
(13.0-18.0)
Hct 35.0 L %
(39.0-52.0)
MCV 75.6 L fL
(80.0-94.0)
MCH 22.2 L pg
(27.0-31.0)
MCHC 29.4 L g/dL
(33.0-37.0)
RDW 22.5 H %
(11.5-14.5)
Absolute Lymphs (auto) 1.1 L 10^3/uL
(1.2-3.4)
Lymphocytes % 17.1 L %
(20.5-51.1)
Chloride 108 H mmol/L
(98-107)
BUN 28 H mg/dl
(9-20)
Creatinine 1.6 H mg/dL
(0.7-1.3)
Glucose 142 H mg/dl
(70-99)
Alkaline Phosphatase 33 L U/L
(38-126)
05/14/24 08:23
05/14/24 08:23
Vital Signs
Initial and Last Documented VS:
Initial Vital Signs
Temp Pulse Resp BP Pulse Ox
98.0 F 96 20 170/106 92
05/14/24 07:15 05/14/24 07:15 05/14/24 07:15 05/14/24 07:15 05/14/24 07:15
Last Documented Vital Signs
Temp Pulse Resp BP Pulse Ox
98.0 F 78 23 148/90 99
05/14/24 07:15 05/14/24 10:25 05/14/24 09:30 05/14/24 10:25 05/14/24 09:30
MDM/Problems Addressed
MDM/Problems Addressed:
58-year-old male with history of CHF, hypertension, A-fib, CAD, diabetes, homelessness presenting for shortness of breath. Vital signs significant for high blood pressure.
On exam patient is resting comfortably, no acute distress or discomfort. Patient with no respiratory distress or increased work of breathing. Lungs clear to auscultation. Patient does have lower extremity edema, however appears chronic with
chronic venous stasis. On review of EMR, recent hospital admission for CHF exacerbation at which time patient's medications were adjusted. Patient did have issues filling his medications, however notes that he has been compliant. Overall low
suspicion for acute CHF exacerbation. No significant signs of volume overload at this time. Will obtain chest x-ray imaging. Patient is concerned that he is going in and out of atrial fibrillation. EKG obtained, currently sinus. No evidence of
atrial fibrillation. Patient does note that he has been having a cough, will screen with viral swabs and again chest x-ray imaging. Overall nontoxic with lower suspicion for serious systemic infection.
10:10 - Labs unremarkable, BNP elevated, however appears to be chronically elevated. Chest x-ray without significant sign of volume overload or pulmonary edema, unchanged from prior. Viral swabs negative. At this time without concern for acute
process. Will administer additional dose of Lasix. Feel stable for discharge, has upcoming appoint with cardiology on the . Advised maintaining this appointment. Return precautions discussed and patient verbalized understanding.
*Critical Care Note
Total Time (30-74mins, 75-104mins- exclusive of procedures): Not Applicable
ED Attending Note
-
Portions of this chart may have been created with voice recognition software.� Occasional wrong word or��sound alike� substitutions may have occurred due to the inherent limitations of voice recognition software.
Discharge Plan
Departure
Patient Disposition: Home (Routine Discharge)
Date of Disposition: 05/14/24
Time of Disposition: 10:14
Patient with high blood pressure during this ER visit?: Yes
Condition: Good
Discharge Problem:
Dyspnea, Diastolic CHF
Instructions: Shortness of Breath (Dyspnea) (DC), Heart Failure ED
Prescriptions:
No Action
cholecalciferol (vitamin D3) 50 mcg (2,000 unit) Tablet
50 mcg PO DAILY Qty: 0 0RF
ferrous sulfate 325 mg (65 mg iron) tablet
325 mg PO DAILY Qty: 30 0RF
zinc sulfate 50 mg zinc (220 mg) Tablet
50 mg PO DAILY
lisinopril 5 mg Tablet
10 mg PO DAILY Qty: 30 0RF
metoprolol succinate 25 mg Tablet Extended Release 24 Hr
25 mg PO BID Qty: 30 0RF
dapagliflozin propanediol 5 mg Tablet
5 mg PO DAILY Qty: 30 0RF
furosemide [Lasix] 40 mg tablet
40 mg PO BID Qty: 60 0RF
Referrals:
Luciana Gonzalez DO [Family Provider] -
Activity Restrictions/Additional Instructions:
You were seen in the emergency department for difficulty breathing
You were found to have labs consistent with heart failure, however appears stable from recent hospital admission. Please continue to take your Lasix twice daily as prescribed and follow-up with your shipping/receiving clerk on 05/20, as scheduled.
Please follow-up closely with your primary care physician.
Return to the emergency department for any worsening of your symptoms, or any development of chest pain, difficulty breathing, abdominal pain with persistent vomiting and inability to tolerate food or liquid by mouth (concern for dehydration),
weakness, headache or confusion, fever greater than 100.4, or any additional symptoms that are concerning to you.
Thank you for choosing [facility].
Interventions
Interventions:
*Risk Screen - Suicide Last Done: 05/14/24 07:15
*General Assessment Last Done: 05/14/24 08:36
*Neglect/Abuse Screening Last Done: 05/14/24 07:15
ED- Fall Risk Assessment Last Done: 05/14/24 07:52
*ED COVID-19 Vaccine History Last Done: 05/14/24 07:52
*Nursing Disposition Last Done: 05/14/24 10:46
ED- Cardiac Assessment Last Done: 05/14/24 08:29
ED- Pulmonary Assessment Last Done: 05/14/24 08:31
Discharge Date and Time
Discharge Date/Time: 05/14/24 10:59
Print Language: KOSOVAN
[2024-05-14 08:54] LABS: % Basophils 0.8 % (0-2); % Eosinophils 1.8 % (0-6); % Immature Granulocytes 0.2 % (0-0.5); % Lymphocytes 17.1 % (20.5-51.1); % Monocytes 7.3 % (1.7-9.3); % Neutrophils 72.8 % (42.2-75.2); Absolute Basophils 0.1 10^3/uL (0-0.2); Absolute Eosinophils 0.1 10^3/uL (0-0.7); Absolute Lymphocytes 1.1 10^3/uL (1.2-3.4); Absolute Monocytes 0.5 10^3/uL (0.1-0.6); Absolute Neutrophils 4.5 10^3/uL (1.4-6.5); Hemoglobin 10.3 g/dL (13.0-18.0); Mean Corp Hgb Conc. 29.4 g/dL (33.0-37.0); Mean Corpuscular Hgb 22.2 pg (27.0-31.0); Mean Corpuscular Volume 75.6 fL (80.0-94.0); Mean Platelet Volume 9.6 fL (7.4-10.4); Nucleated Red Blood Cells % 0 % (-); Platelet Count 280 10^3/uL (130-400); Red Blood Cell Count 4.63 10^6/uL (4.70-6.10); Red Cell Dist. Width 22.5 % (11.5-14.5); White Blood Cell Count 6.2 10^3/uL (4.8-10.8)
[2024-05-14 09:00] VITALS: BP 140/89
[2024-05-14 09:15] LABS: ALT (SGPT) 17 U/L (0-50); AST (SGOT) 21 U/L (17-59); Albumin 4.1 g/dl (3.5-5.0); Alkaline Phosphatase 33 U/L (38-126); Blood Urea Nitrogen 28 mg/dl (9-20); Calcium 8.9 mg/dl (8.4-10.2); Carbon Dioxide 23 mmol/L (22-30); Chloride 108 mmol/L (98-107); Glucose 142 mg/dl (70-99); Potassium 4.3 mmol/L (3.5-5.1); Sodium 141 mmol/L (135-145); Total Bilirubin 1.1 mg/dl (0.2-1.3); Total Protein 6.8 g/dl (6.3-8.2); eGFR 49.94
[2024-05-14 09:19] LABS: NT-proBNP 7060 pg/ml
[2024-05-14 09:41] LABS: Anisocytosis 2+; Hypochromasia 1+; Ovalocytes 1+
[2024-05-14] MEDS: LASIX 40 MG PO (10:25)
[2024-05-14 11:33] LABS: Normal RBC Morphology No
== END 2024-05-14 10:59 | disposition home or self-care (01) ==
LOC: EMR 07:14
PROVIDERS: EMERGENCY PHYSICIAN Student in an Organized Health Care Education/Training Program; FAMILY PHYSICIAN Family Medicine
DX: R06.00 Dyspnea, unspecified (principal); I50.30 Unspecified diastolic (congestive) heart failure; I48.91 Unspecified atrial fibrillation; I25.10 Atherosclerotic heart disease of native coronary artery without angina pectoris; E11.9 Type 2 diabetes mellitus without complications; Z59.00 Homelessness unspecified
CPT/HCPCS: 99283; 71046; 80053; 83880; 85025; 87502; 87811; 93005

== ENCOUNTER 2024-05-17 09:18 | Emergency (ER) | payer MEDICAID, SELFPAY ==
[2024-05-17 09:27] VITALS: BP 174/103
--- NOTE | 2024-05-17 10:45 | ED.GENMED ---
History of Present Illness
General
Chief Complaint: Cough
Time Seen by Provider: 05/17/24 10:35
History of Present Illness
History of Present Illness:
58-year-old male with history of CHF, A-fib, and CAD presents to the emergency department due to medication issues. Patient is homeless and has been in this hospital multiple times recently in need of medication refills. He has not establish care
with a primary care physician, apparently went to the [facility] here at the hospital but was declined as he has Medicaid. He is out of his metoprolol and lisinopril. He also reports a productive cough for the past 2 to 3 days, no shortness of
breath or chest pain
Past History
Past History
ED Past Medical History: CAD, CHF, HTN, Other (Gout) and Other (Perforated gastric ulcer 2014)
ED Past Surgical History: Urological and Other (laparotomy, repair of perforated gastric ulcer 2014)
Social History
Tobacco: Non-smoker
Alcohol: Occasional
Drug: None
Personal: Single
Employment: Employed
Review of Systems
Review of Systems
Allergies reviewed?: Yes
All Other Systems: ROS reviewed and negative except as documented in HPI and ROS
Phy Exam
Physical Exam
Physical Exam:
GEN: Well appearing, NAD, WDWN
Eyes: PERRLA, EOMs intact, no scleral icterus
HENT: NCAT, oral mucosa moist, no JVD, no cervical adenopathy.
Lungs: Clear to auscultation bilaterally, scant bibasilar wheezes
Cardiac: RRR, no M/R/G, no peripheral edema. Radial pulses 2+ bilat
Abdomen: S, NT, ND, NABS, no masses or hepatosplenomegaly
Neuro: AO x 3
MSK: Severe bilateral lower extremity edema
Skin: No rashes, petechiae. Normal color, no pallor or jaundice.
Psych: Calm, cooperative, proper hygiene
Course
Orders/Labs/Results
Orders:
Orders
05/17/24 00:00
Metoprolol Xl [Toprol Xl] 50 mg PO BID
05/17/24 10:45
Electrocardiogram (*1) Urgent
Reason for Study: Shortness of Breath
EKG- Treatment ONCE
CR Chest - 2 Views Urgent
Comment:
Reason For Exam: SOB
05/17/24 11:37
Complete Blood Count/With Diff Urgent
NT-proBNP Urgent
Troponin I Urgent
05/17/24 12:15
Comprehensive Metabolic Panel Urgent
05/17/24 12:17
Benzonatate [Tessalon Perles] 200 mg PO NOW STA
05/17/24 12:50
Ipratropium/Albuterol Sulfate [Duoneb] 3 ml INH R NOW ONE
05/17/24 13:29
Azithromycin [Zithromax] 500 mg PO NOW STA
Lisinopril [Zestril] 10 mg PO NOW STA
Metoprolol [Lopressor] 50 mg PO NOW STA
Prednisone [Deltasone] 40 mg PO NOW STA
05/17/24 13:30
Case Management Consult ONCE
Case Management Consult: Other
Comment: Medication Assistance
05/18/24 00:00
Azithromycin [Zithromax] 250 mg PO DAILY
Lisinopril [Zestril] 10 mg PO DAILY
Prednisone [Deltasone] 40 mg PO DAILY
Abnormal Lab Results
05/17/24 05/17/24
11:37 12:15
Hgb 10.6 L g/dL
(13.0-18.0)
Hct 35.9 L %
(39.0-52.0)
MCV 75.9 L fL
(80.0-94.0)
MCH 22.4 L pg
(27.0-31.0)
MCHC 29.5 L g/dL
(33.0-37.0)
RDW 23.2 H %
(11.5-14.5)
Absolute Lymphs (auto) 0.7 L 10^3/uL
(1.2-3.4)
Absolute Monos (auto) 0.7 H 10^3/uL
(0.1-0.6)
Lymphocytes % 13.4 L %
(20.5-51.1)
Monocytes % 12.5 H %
(1.7-9.3)
BUN 23 H mg/dl
(9-20)
Creatinine 1.5 H mg/dL
(0.7-1.3)
Troponin I 0.041 H* ng/ml
05/17/24 11:37
05/17/24 12:15
Vital Signs
Initial and Last Documented VS:
Initial Vital Signs
Temp Pulse Resp BP Pulse Ox
98.8 F 97 18 174/103 93
05/17/24 09:27 05/17/24 09:27 05/17/24 09:27 05/17/24 09:27 05/17/24 09:27
Last Documented Vital Signs
Temp Pulse Resp BP Pulse Ox
98.3 F 85 22 148/96 99
05/17/24 13:41 05/17/24 13:41 05/17/24 13:41 05/17/24 13:41 05/17/24 13:41
MDM/Problems Addressed
MDM/Problems Addressed:
Patient's labs are relatively stable, he does have scant wheezes likely from viral bronchitis however given purulent sputum we will treat with empiric antibiotics and steroids. No evidence of acute CHF exacerbation. Case management evaluated the
patient and we were able to dispense a few days of medications to the patient to the pharmacy due to his financial difficulties. He plans to go to a long term tonight
*Critical Care Note
Total Time (30-74mins, 75-104mins- exclusive of procedures): Not Applicable
ED Attending Note
-
Portions of this chart may have been created with voice recognition software.� Occasional wrong word or��sound alike� substitutions may have occurred due to the inherent limitations of voice recognition software.
Discharge Plan
Departure
Patient Disposition: Home (Routine Discharge)
Date of Disposition: 05/17/24
Time of Disposition: 15:05
Patient with high blood pressure during this ER visit?: No
Discharge Problem:
Chronic CHF, Bronchitis
Instructions: Acute Bronchitis, Adult (DC)
Prescriptions:
No Action
cholecalciferol (vitamin D3) 50 mcg (2,000 unit) Tablet
50 mcg PO DAILY Qty: 0 0RF
ferrous sulfate 325 mg (65 mg iron) tablet
325 mg PO DAILY Qty: 30 0RF
zinc sulfate 50 mg zinc (220 mg) Tablet
50 mg PO DAILY
lisinopril 5 mg Tablet
10 mg PO DAILY Qty: 30 0RF
metoprolol succinate 25 mg Tablet Extended Release 24 Hr
25 mg PO BID Qty: 30 0RF
dapagliflozin propanediol 5 mg Tablet
5 mg PO DAILY Qty: 30 0RF
furosemide [Lasix] 40 mg tablet
40 mg PO BID Qty: 60 0RF
Referrals:
NONE,* [Family Provider] -
Activity Restrictions/Additional Instructions:
Take the azithromycin once daily for 4 days as well as the prednisone once daily for 4 days. Each of these medications can be resumed tomorrow
You need to follow-up with the [facility] and do your part to obtain medical assistance or Medicaid, we can no longer provide you medication refills in this manner
Interventions
Interventions:
*Risk Screen - Suicide Last Done: 05/17/24 15:17
*General Assessment Last Done: 05/17/24 12:11
*Neglect/Abuse Screening Last Done: 05/17/24 12:11
ED- Fall Risk Assessment Last Done: 05/17/24 12:11
*ED COVID-19 Vaccine History Last Done: 05/17/24 12:11
*Nursing Disposition Last Done: 05/17/24 15:17
ED- Pulmonary Assessment Last Done: 05/17/24 13:11
Discharge Date and Time
Discharge Date/Time: 05/17/24 16:38
Print Language: URDU
[2024-05-17 11:59] LABS: % Basophils 0.6 % (0-2); % Eosinophils 2.5 % (0-6); % Immature Granulocytes 0.4 % (0-0.5); % Lymphocytes 13.4 % (20.5-51.1); % Monocytes 12.5 % (1.7-9.3); % Neutrophils 70.6 % (42.2-75.2); Absolute Eosinophils 0.1 10^3/uL (0-0.7); Absolute Lymphocytes 0.7 10^3/uL (1.2-3.4); Absolute Monocytes 0.7 10^3/uL (0.1-0.6); Absolute Neutrophils 3.8 10^3/uL (1.4-6.5); Hematocrit 35.9 % (39.0-52.0); Hemoglobin 10.6 g/dL (13.0-18.0); Mean Corp Hgb Conc. 29.5 g/dL (33.0-37.0); Mean Corpuscular Hgb 22.4 pg (27.0-31.0); Mean Corpuscular Volume 75.9 fL (80.0-94.0); Mean Platelet Volume 9.1 fL (7.4-10.4); Nucleated Red Blood Cells % 0 % (-); Platelet Count 259 10^3/uL (130-400); Red Blood Cell Count 4.73 10^6/uL (4.70-6.10); Red Cell Dist. Width 23.2 % (11.5-14.5); White Blood Cell Count 5.3 10^3/uL (4.8-10.8)
[2024-05-17 12:07] LABS: Anisocytosis 2+; Hypochromasia 2+; Macrocytosis Slight; Normal RBC Morphology No; Ovalocytes Slight; Polychromasia Slight
[2024-05-17 12:10] VITALS: BMI 39.9
[2024-05-17 12:18] LABS: Troponin I 0.041 ng/ml
[2024-05-17] MEDS: TESSALON PERLES 200 MG PO (12:19)
[2024-05-17 12:39] LABS: ALT (SGPT) 17 U/L (0-50); AST (SGOT) 19 U/L (17-59); Alkaline Phosphatase 41 U/L (38-126); Blood Urea Nitrogen 23 mg/dl (9-20); Calcium 8.8 mg/dl (8.4-10.2); Carbon Dioxide 26 mmol/L (22-30); Chloride 107 mmol/L (98-107); Estimated Creatinine Clearance 62 ml/min; Glucose 84 mg/dl (70-99); Potassium 4.1 mmol/L (3.5-5.1); Sodium 140 mmol/L (135-145); Total Bilirubin 1.1 mg/dl (0.2-1.3); Total Protein 6.5 g/dl (6.3-8.2); eGFR 53.96
[2024-05-17] MEDS: DUONEB 3 ML INH (12:57)
[2024-05-17 12:59] LABS: NT-proBNP 7510 pg/ml
[2024-05-17 13:41] VITALS: BP 148/96
[2024-05-17] MEDS: ZITHROMAX 500 MG PO (13:43)
[2024-05-17] MEDS: ZESTRIL 10 MG PO (13:43)
[2024-05-17] MEDS: DELTASONE 40 MG PO (13:43)
[2024-05-17] MEDS: LOPRESSOR 50 MG PO (13:43)
--- NOTE | 2024-05-17 14:31 | CM ---
Addendum entered by Simi Dickens 05/17/24 15:07:
Patient given information for [email or web address], reviewed [facility] information and patient now states they say he has to fail something first but he is unsure what that is. Patient aware that medication will be given one time for 3 days and
is planning to [facility] to [facility]. CM will continue to follow for discharge planning needs.
Original Note:
CM received consult from ED. Patient in ED three times in April. [facility]. Last time in patient given contact information for [facility] and taken to clinic. Patient indicated that he has not completed application process. [facility] and patient indicated that he has not gone to any of the pharmacies to get medications due to not having insurance and no
money. Patient for discharge to [facility] today. CM called to pharmacy to request assistance with medications for one time. Pharmacy willing to work with provider. Patient made aware that CM unable to continue to assist and that he has to go to Clinic
or talk to the [facility] resources. Patient in agreement. CM will continue to follow for discharge planning needs.
PLAN: homeless [facility] and medication assistance.
== END 2024-05-17 16:38 | disposition home or self-care (01) ==
LOC: EMR 09:18
PROVIDERS: Physician Assistant; EMERGENCY PHYSICIAN Student in an Organized Health Care Education/Training Program
DX: J20.9 Acute bronchitis, unspecified (principal); Z76.0 Encounter for issue of repeat prescription; R60.0 Localized edema; I11.0 Hypertensive heart disease with heart failure; I50.9 Heart failure, unspecified; I25.10 Atherosclerotic heart disease of native coronary artery without angina pectoris; I48.91 Unspecified atrial fibrillation; Z59.00 Homelessness unspecified; M10.9 Gout, unspecified; Z59.86 Financial insecurity; Z87.19 Personal history of other diseases of the digestive system
CPT/HCPCS: 99283; 94640; 71046; 80053; 83880; 84484; 85025; 93005

== ENCOUNTER 2024-05-20 11:12 | Inpatient (IN) | payer OTHER, SELFPAY ==
[2024-05-20] VITALS (11 sets, daily range): BP systolic 123–192; BP diastolic 80–125; BMI 41.8
[2024-05-20 08:06] LABS: INR 1.35; Lactic Acid 1.6 mmol/L (0.7-2.0)
[2024-05-20 08:07] LABS: ALT (SGPT) 24 U/L (0-50); APTT 32.4 Sec (23.4-35.0); AST (SGOT) 23 U/L (17-59); Albumin 4.2 g/dl (3.5-5.0); Alkaline Phosphatase 39 U/L (38-126); Blood Urea Nitrogen 39 mg/dl (9-20); Calcium 8.9 mg/dl (8.4-10.2); Carbon Dioxide 22 mmol/L (22-30); Chloride 108 mmol/L (98-107); Estimated Creatinine Clearance 56 ml/min; Glucose 139 mg/dl (70-99); Potassium 4.4 mmol/L (3.5-5.1); Sodium 143 mmol/L (135-145); Total Bilirubin 0.9 mg/dl (0.2-1.3); Total Protein 7.2 g/dl (6.3-8.2); eGFR 49.94
--- NOTE | 2024-05-20 08:15 | ED.GENMED ---
History of Present Illness
General
Chief Complaint: Cough
Source: patient and records
Exam Limitations: none
Time Seen by Provider: 05/20/24 07:59
History of Present Illness
History of Present Illness:
58yoM with a history of CHF, coronary artery disease, atrial fibrillation not on anticoagulation, hypertension, obesity, CKD, and gout presenting for evaluation of shortness of breath. Symptoms initially began on . He was diagnosed
with a COVID infection at that time. Patient has been having ongoing issues with dyspnea since then. He has had multiple ED visits over the past few months and was last seen 3 days ago for bronchitis. He was given prescriptions for prednisone and
azithromycin. Patient states he was able to walk over a mile last week without any issues but now he is only able to walk 20 feet without significant symptoms. His shortness of breath is worse with laying flat. He also believes that he has gained
weight. He denies any chest pain but does report some right shoulder pain. No fevers. Patient was hypoxic to 82% on arrival.
Past History
Past History
ED Past Medical History: CAD, CHF, HTN, Other (Gout) and Other (Perforated gastric ulcer 2014)
ED Past Surgical History: Urological and Other (laparotomy, repair of perforated gastric ulcer 2014)
Social History
Tobacco: Non-smoker
Alcohol: Occasional
Drug: None
Personal: Single
Employment: Employed
Phy Exam
General Physical Exam
General Presentation: mild distress
General Skin: warm and dry
General Habitus: normal and obese
General Mental: alert
ENT Exam
ENT Exam: normocephalic
Cardiovascular Exam
Cardiovascular Exam: systolic murmur and other (2-3+ pitting edema with chronic venous stasis changes in bilateral lower extremities)
Pulmonary Exam
Pulmonary Exam: other (Tachypnea noted with bibasilar rales)
Respiratory Effort: tachypnea
Neurological Exam
Neurological Exam: alert
Jermain Coma Scale
Eye Opening: Spontaneous
Verbal Response: Oriented
Motor Response: Obeys Commands
GCS Total Score: 15
Skin Exam
Skin Exam: warm/dry
Psychiatric Exam
Psychiatric Exam: normal mood/affect
Sepsis
Sepsis Screening
Sepsis Assessment: Sepsis Ruled Out
Sepsis Screen
Sepsis Screen: Sepsis Ruled Out
Date: 05/20/24
Time: 09:20
Course
Orders/Labs/Results
Orders:
Orders
05/20/24 07:34
Chest [CR Chest - 2 Views ] Urgent
Comment:
Reason For Exam: cough, SOB
05/20/24 07:44
ECG [Electrocardiogram (*1)] Urgent
Reason for Study: Shortness of Breath
EKG- Treatment ONCE
05/20/24 07:45
COVID-19 Antigen Urgent
Source: Nasal Swab
Complete Blood Count/With Diff Urgent
Comprehensive Metabolic Panel Urgent
Lactic Acid Urgent
NT-proBNP Urgent
PTT Urgent
Prothrombin Time Urgent
Troponin I Urgent
Influenza A+B Rapid Molecular Urgent
RUPERTO Source: Nasal Swab
Specimen Description:
05/20/24 09:01
Furosemide [Lasix] 60 mg IV NOW STA
Abnormal Lab Results
05/20/24
07:45
Hgb 11.3 L g/dL
(13.0-18.0)
MCV 78.3 L fL
(80.0-94.0)
MCH 22.5 L pg
(27.0-31.0)
MCHC 28.7 L g/dL
(33.0-37.0)
RDW 23.9 H %
(11.5-14.5)
Abs Immat Gran (auto) 0.1 H 10^3/uL
(0-0.05)
Absolute Neuts (auto) 7.4 H 10^3/uL
(1.4-6.5)
Absolute Lymphs (auto) 0.9 L 10^3/uL
(1.2-3.4)
Immature Gran % 0.9 H %
(0-0.5)
Neutrophils % 82.2 H %
(42.2-75.2)
Lymphocytes % 10.0 L %
(20.5-51.1)
PT 17.0 H Sec
(11.4-14.6)
Chloride 108 H mmol/L
(98-107)
BUN 39 H mg/dl
(9-20)
Creatinine 1.6 H mg/dL
(0.7-1.3)
Glucose 139 H mg/dl
(70-99)
Troponin I 0.039 H* ng/ml
05/20/24 07:45
05/20/24 07:45
Vital Signs
Initial and Last Documented VS:
Initial Vital Signs
Temp Pulse Resp BP Pulse Ox
98.3 F 94 22 192/125 94
05/20/24 07:32 05/20/24 07:32 05/20/24 07:32 05/20/24 07:32 05/20/24 07:32
Last Documented Vital Signs
Temp Pulse Resp BP Pulse Ox
98.3 F 98 36 182/120 94
05/20/24 07:32 05/20/24 09:10 05/20/24 08:13 05/20/24 09:10 05/20/24 08:20
MDM/Problems Addressed
Differential Diagnosis Includes:
58yoM here with SOB, orthopnea, and cough. Ongoing since April but acutely worsening over the past few days. Hx of CHF. He is hypertensive and was 82% in triage. Patient is on 4L NC at time of exam. He is tachypneic with bibasilar rales and
appears volume overloaded. Differential diagnosis includes but is not limited to: CHF exacerbation, pneumonia, bronchitis, ACS
Initial ED plan: Check cardiac labs, COVID/flu swab, EKG, and CXR.
*EKG
Interpreted by ED Provider?: Yes
EKG Intrepretation Date: 05/20/24
Heart Rate: 91
Rate: normal
Rhythm: sinus and PAC's
[place]: normal axis
QRS Pattern: normal QRS
Ischemia: no ischemia
*Critical Care Note
Total Time (30-74mins, 75-104mins- exclusive of procedures): Not Applicable
Update Note
Update Note:
BNP is >16,000, up from 7500 three days ago. Weight today is 114 kg, up from 108 kg at last ED visit 3 days ago. Troponin is 0.039 which appears chronically elevated. No ischemic changes on EKG. Pulmonary edema seen on chest x-ray per my
interpretation, formal radiology read is pending. 60 mg IV Lasix ordered. He was admitted for further management.
ED Attending Note
-
Portions of this chart may have been created with voice recognition software.� Occasional wrong word or��sound alike� substitutions may have occurred due to the inherent limitations of voice recognition software.
Discharge Plan
Departure
Patient Disposition: Admit
Date of Disposition: 05/20/24
Time of Disposition: 09:10
Presentation/result/management discussed w/ accepting MD/DO: Hospitalist
Discharge Problem:
Acute exacerbation of CHF (congestive heart failure), Acute hypoxic respiratory failure
Prescriptions:
No Action
metoprolol succinate 25 mg Tablet Extended Release 24 Hr
25 mg PO BID Qty: 30 0RF
furosemide [Lasix] 40 mg tablet
40 mg PO BID Qty: 60 0RF
azithromycin 250 mg Tablet
250 mg PO DAILY
Patient Comments:
start 05/18/24
prednisone 20 mg Tablet
40 mg PO DAILY
Patient Comments:
start 05/18/24
lisinopril 5 mg tablet
5 mg PO DAILY
Interventions
Interventions:
*Risk Screen - Suicide Last Done: 05/20/24 08:16
*Neglect/Abuse Screening Last Done: 05/20/24 08:16
ED- Fall Risk Assessment Last Done: 05/20/24 08:20
*ED COVID-19 Vaccine History Last Done: 05/20/24 08:14
ED- Pulmonary Assessment Last Done: 05/20/24 08:20
Discharge Date and Time
Print Language: MOSOTHO
[2024-05-20 08:16] LABS: Hematocrit 39.4 % (39.0-52.0); Hemoglobin 11.3 g/dL (13.0-18.0); Mean Corp Hgb Conc. 28.7 g/dL (33.0-37.0); Mean Corpuscular Hgb 22.5 pg (27.0-31.0); Mean Corpuscular Volume 78.3 fL (80.0-94.0); Platelet Count 310 10^3/uL (130-400); Red Blood Cell Count 5.03 10^6/uL (4.70-6.10); Red Cell Dist. Width 23.9 % (11.5-14.5)
[2024-05-20 08:21] LABS: NT-proBNP 16500 pg/ml; Troponin I 0.039 ng/ml
--- NOTE | 2024-05-20 08:21 | EDRN ---
Reported low POX at triage-- 80's
[2024-05-20 08:22] LABS: COVID-19 Antigen Negative (Negative)
[2024-05-20 08:40] LABS: % Basophils 0.4 % (0-2); % Immature Granulocytes 0.9 % (0-0.5); % Monocytes 6.5 % (1.7-9.3); % Neutrophils 82.2 % (42.2-75.2); Absolute Immature Granulocytes 0.1 10^3/uL (0-0.05); Absolute Lymphocytes 0.9 10^3/uL (1.2-3.4); Absolute Monocytes 0.6 10^3/uL (0.1-0.6); Absolute Neutrophils 7.4 10^3/uL (1.4-6.5)
[2024-05-20 08:46] LABS: Anisocytosis Slight; Normal RBC Morphology No; Ovalocytes Slight; Polychromasia Slight
--- NOTE | 2024-05-20 08:53 | PHANOTE ---
med rec note- patient has free medication from case management and the [facility] program with him.
[2024-05-20] MEDS: LASIX 60 MG IV ×2 (09:10→16:42)
--- NOTE | 2024-05-20 10:47 | CON.CAR ---
Addendum entered and electronically signed by Hany Kern MD 05/20/24 11:56:
I saw and examined the patient.
The resident's note was reviewed and I agree with the note.
Comment: 58 y/o male with hx HFimpEF (was 35-40%, more recently 55-60%), NICM, moderate MR, CKD (looks like 3A range typically), AFIB s/p ablation (not on OAC due to patient declining it), hypertension, non-obstructive CAD, obesity, DM (not on
medicines). We are consulted for HF.
His living situation is difficult and likely dietary indiscretions are what lead to HF exacerbations.
- IV diuretics
Original Note:
Medical History
-
Chief Complaint: SOB, edema
History of Present Illness:
58 y/o male with hx HFimpEF (was 35-40%, more recently 55-60%), NICM, moderate MR, CKD (looks like 3A range typically), AFIB s/p ablation (not on OAC due to patient declining it), hypertension, non-obstructive CAD, obesity, DM (not on medicines). He
was seen in ED for acute bronchitis on few days ago and was treated with prednisone and antibiotics. He reports of increased cough, increased sputum production and dyspnea on exertion. He reports swelling of LE bilaterally. He was not checking
weights, but felt that he gained weight. He has been taking his lasix daily. He denies CP, SOB at rest. He also reports of palpitations and 'racing of heart'.
Past Medical History
Past Medical History: Arrhythmias, CAD, HTN, NIDDM and Valvular Disease
Social History
Tobacco: Non-Smoker
Alcohol: None
Drug: None
Personal: Single
Living: Homeless
Employment: Not Employed
Family History
Family History: Reviewed & Not Pertinent (multiple family members - mom, GM, and GP suddenly with heart disease, but at older ages)
Allergies / Home Medications
Allergy/AdvReac Type Severity Reaction Status Date / Time
No Known Allergies Allergy Verified 05/14/24 07:15
�Medication �Instructions �Recorded �Confirmed �Type
furosemide 40 mg tablet (Lasix) 40 mg PO BID #60 tabs 04/27/24 05/20/24 Rx
metoprolol succinate 25 mg 25 mg PO BID #30 tabs 04/27/24 05/20/24 Rx
tablet,extended release 24 hr
azithromycin 250 mg tablet 250 mg PO DAILY 05/20/24 05/20/24 History
lisinopril 5 mg tablet 5 mg PO DAILY 05/20/24 05/20/24 History
prednisone 20 mg tablet 40 mg PO DAILY 05/20/24 05/20/24 History
Review of Systems
-
Constitutional: Weight Gain
Respiratory: Cough and Trouble Breathing
Cardiac: Palpitations
Musculoskeletal: Edema
Physical Exam
Vital Signs
Temp Pulse Resp BP Pulse Ox
98.3 F 98 36 182/120 94
05/20/24 07:32 05/20/24 09:10 05/20/24 08:13 05/20/24 09:10 05/20/24 08:20
Lab Results
05/20/24 07:45
05/20/24 07:45
Troponin I 0.039 ng/ml H* 05/20/24 07:45
Vpz-H-Hbykqffghxp Pept 11225 pg/ml 05/20/24 07:45
Physical Exam
General: Other (obese)
HEENT: Normocephalic, Anicteric and Moist Mucous Membranes
Respiratory: Other (decreased breath sounds diffuse B/L )
Cardiac: S1/S2 and Regular Rhythm; Negative Murmur or Rub
GI: Non Tender, Non Distended and Normal Bowel Sounds
Musculoskeletal: Edema (3+ pitting b/l) and Other (tophi seen on right index finger)
Skin: Other (stasis dermatitis )
Neuro: AO x 3
Psych: Calm
Impression / Plan
-
Impression
Acute on chronic HFimEF
Persistent atrial fibrillation
CKD 3 A
HTN
Plan
Acute on chronic HFimEF
Recurrent hospitalization due to the same issue
He is currently homeless. Suspect medical non compliance, high sodium diet.
IV Lasix 60 mg twice daily
Recent echo a month ago, LVEF 50-55%.
Weight today is 251 lbs.
Will diurese to reach dry weight of 230 lbs.
Check I/O daily
Check daily weights
Persistent afib s/p cardiac ablation
Not on OAC as patient declines
Continue metoprolol
CKD 3A
creatinine at baseline
Continue to diurese
Essential HTN
Continue to diurese
Continue Lisinopril.
Monitor BP
ECHO 04/03/24
-Left ventricular ejection fraction is 55-60%, by visual assessment. Possible
basal inferior hypokinesis. Stage III diastolic dysfunction suggestive of
restrictive filling pattern and increased filling pressures.
-Dilated right ventricle. Low normal right ventricular systolic function.
-Severely dilated left atrium. Dilated right atrium.
-Moderate, eccentric mitral regurgitation.
-Mild tricuspid regurgitation. Estimated pulmonary artery pressure of 45-50
mmHg.
Compared to previous echo on 08/31/2022 ([facility]), the LVEF has improved previously
(35-40%). The previous reported degree of mitral regurgitation appears to have
improved (previously severe).
Data Reviewed
-
Medical Tests (Nuc Med, Echo etc): Report Reviewed by me and Discussed with Physician
Labs: Discussed with Physician
--- NOTE | 2024-05-20 10:47 | HPS.HSE ---
Family Physician
-
Family Physician: * NONE
Chief Complaint
-
Cough, shortness of breath
History of Present Illness
58-year-old male with morbid obesity and congestive heart failure here with recurrence of shortness of breath and cough.
He is unfortunately homeless.
States he has been compliant with his medications. Compliant with fluid restriction.
Medical History
Past Medical History
Past Medical History: Reports Other
Additional Past Medical History:
Chronic heart failure with recovered EF
CKD 3a
Essential hypertension
CAD
Gout
Peptic ulcer disease
Paroxysmal atrial fibrillation
Morbid obesity due to excess calories
Past Surgical History: Reports Other
Additional Past Surgical History:
Exploratory laparotomy, perforated gastric ulcer repair�2014
Cardioversion
PVI ablation
Social History
Tobacco: Smoker
Alcohol: Former
Drug: None
Personal: Single
Living: Homeless
Family History
Family History: Not pertinent
Allergies / Home Medications
Allergies reflects when Allergies were last updated in [facility].
Home Medications with original date entered in [facility]
Allergy/Medication List:
Allergies
Allergy/AdvReac Type Severity Reaction Status Date / Time
No Known Allergies Allergy Verified 05/14/24 07:15
Home Medications
furosemide 40 mg tablet (Lasix) 40 mg PO BID #60 tabs 04/27/24
metoprolol succinate 25 mg tablet,extended release 24 hr 25 mg PO BID #30 tabs 04/27/24
azithromycin 250 mg tablet 250 mg PO DAILY 05/20/24
lisinopril 5 mg tablet 5 mg PO DAILY 05/20/24
prednisone 20 mg tablet 40 mg PO DAILY 05/20/24
Review of Systems
-
History Source: Patient
A 12 point ROS was completed and negative except as noted: Yes
Physical Exam
Vital Signs
Vital Signs
Temp Pulse Resp BP Pulse Ox
98.3 F 98 36 182/120 94
05/20/24 07:32 05/20/24 09:10 05/20/24 08:13 05/20/24 09:10 05/20/24 08:20
Physical Exam
General: Well Developed, Well Nourished and Respiratory Distress
HEENT: NormoCephalic, Anicteric and Moist mucous membranes
Respiratory: Decreased Breath Sounds
Cardiac: S1/S2 and Regular Rhythm
GI: Soft, Non Tender and Non Distended
Genito-urinary: Deferred by me
Musculoskeletal: No Clubbing, No Cyanosis, Edema, Left Lower Extremity and Edema, Right Lower Extremity
Skin: Warm and Dry
Neuro: AO x 3
Hematologic/Lymphatic: No Lymphadenopathy
Psych: Calm
Laboratory Results
-
05/20/24 07:45
05/20/24 07:45
Laboratory Results
PT 17.0 Sec (11.4-14.6) H 05/20/24 07:45
INR 1.35 05/20/24 07:45
APTT 32.4 Sec (23.4-35.0) 05/20/24 07:45
Lactic Acid 1.6 mmol/L (0.7-2.0) 05/20/24 07:45
Total Bilirubin 0.9 mg/dl (0.2-1.3) 05/20/24 07:45
AST 23 U/L (17-59) 05/20/24 07:45
ALT 24 U/L (0-50) 05/20/24 07:45
Alkaline Phosphatase 39 U/L (38-126) 05/20/24 07:45
Troponin I 0.039 ng/ml H* 05/20/24 07:45
Impression/Plan
-
Acute hypoxic respiratory insufficiency -requiring 4 L nasal cannula oxygen. Etiology is pulmonary edema related to heart failure exacerbation
Acute on chronic heart failure with preserved EF -suspect related to medication noncompliance. Being homeless is not helping his situation.
Admit to telemetry. IV Lasix. Consult cardiology.
BNP 16,500.
Troponin elevation -suspect acute nonischemic myocardial injury due to heart failure. Troponin was elevated previously as well.
Essential hypertension with hypertensive emergency -blood pressure should improve with diuresis.
Paroxysmal atrial fibrillation -treated with ablation in 2022. Not on anticoagulation by patient choice.
CKD 3A -renal function at baseline.
CAD
Gout
History of peptic ulcer disease
Morbid obesity due to excess calories
--- NOTE | 2024-05-20 19:26 | TRANSFER ---
Pt transferred from ED to [facility], pt walked from stretcher to bed. On 4L NC. Vitals taken, placed on tele monitor, NSR with PVCs. Pt oriented to room. Medications sent to pharmacy, paperwork in chart. Call [facility]ton within reach.
[2024-05-20] MEDS: ROBITUSSIN 200 MG PO (19:46)
[2024-05-20] MEDS: TOPROL XL 25 MG PO (19:46)
[2024-05-20] MEDS: TYLENOL 650 MG PO (21:10)
--- NOTE | 2024-05-21 02:44 | DOWNTIME ---
There was a [employer] Downtime on 05/21/2024 from 0100 to 05/21/2023 at 0235 . Downtime documentation of patient's care, including medication administrations, has been reconciled in the electronic record per guidelines. Refer to the
patient's paper chart under the miscellaneous tab to see printed paper medication records and downtime forms.
[2024-05-21] MEDS: ROBITUSSIN 200 MG PO (02:58)
[2024-05-21 03:00] VITALS: BP 136/77
[2024-05-21 06:13] LABS: Blood Urea Nitrogen 40 mg/dl (9-20); Calcium 8.3 mg/dl (8.4-10.2); Carbon Dioxide 32 mmol/L (22-30); Chloride 100 mmol/L (98-107); Estimated Creatinine Clearance 63 ml/min; Glucose 111 mg/dl (70-99); Potassium 3.8 mmol/L (3.5-5.1); Sodium 141 mmol/L (135-145); eGFR 53.96
[2024-05-21 07:29] VITALS: BP 138/91
[2024-05-21] MEDS: LASIX 60 MG IV ×2 (08:54→16:59)
[2024-05-21] MEDS: ZESTRIL 5 MG PO (08:55)
[2024-05-21] MEDS: TOPROL XL 25 MG PO ×2 (08:56→19:51)
[2024-05-21] MEDS: TYLENOL 650 MG PO ×2 (08:57→19:51)
--- NOTE | 2024-05-21 10:14 | W.PN.CD ---
Addendum entered and electronically signed by OLGA Calderon 05/21/24 11:22:
Brief NSVT seen on monitor in past 24 hours, no symptoms. Check mag, replace K+. Continue BB- can increase if needed.
Original Note:
Today's Communication / Plan
-
-Continue IV diuresis
-I have added daily weights, fluid restriction, and CHF education
Impression / Plan
-
58 y/o male with hx HFimpEF (was 35-40%, more recently 55-60%), NICM, moderate MR, CKD (looks like 3A range typically), AFIB s/p ablation (not on OAC due to patient declining it), hypertension, non-obstructive CAD, obesity, DM (not on medicines).
We are consulted for HF. His living situation is difficult and likely dietary indiscretions are what lead to HF exacerbations. He has also recently been treated for bronchitis with azithromycin and prednisone.
Acute on chronic HFimpEF:
-ECHO 04/03/24: EF 55-60% Possible basal inferior hypokinesis. Stage III diastolic dysfunction. Dilated right ventricle. Low normal right ventricular systolic function. Severely dilated left atrium. Dilated right atrium. Moderate mitral regurgitation.
Pulmonary artery pressure of 45-50 mmHg. Compared to previous echo on 08/31/2022 ([facility]), the LVEF has improved previously (35-40%). The previous reported degree of mitral regurgitation appears to have improved (previously severe).
-goal weight reported to be 230 lbs. Weight not in yet today- I have ordered it.
-CHF education
-on ACEI and BB
-Of note, GDMT has been limited as he declined SGLT2i. Also lack of follow-up makes MRA unsafe particularly with his CKD.
-continue IV diuresis, which requires intensive monitoring
-AM weight pending, but he reports urinary response to diuretic
Bronchitis:
-he has productive cough and coarse lung sounds, coughing frequently
-recent diagnosis, for which he has been on prednisone and azithromycin
-management per primary
PAF:
-stable in SR with hx ablation
-Not on OAC as patient declines
-Continue metoprolol
CKD 3A:
-monitor with diuresis
HTN:
-on ACEI and BB
-monitor
Physical Exam
Vital Signs/Labs
Vital Signs
Temp Pulse Resp BP Pulse Ox
97.4 F 72 24 138/91 99
05/21/24 07:29 05/21/24 08:56 05/21/24 07:29 05/21/24 08:56 05/21/24 07:29
05/20/24 05/21/24 05/22/24
06:59 06:59 06:59
Actual Weight 114 kg
05/20/24 07:45
05/21/24 05:13
PT 17.0 Sec (11.4-14.6) H 05/20/24 07:45
INR 1.35 05/20/24 07:45
APTT 32.4 Sec (23.4-35.0) 05/20/24 07:45
05/20/24
07:45
[id number] Pept 63610
LAB Results
05/20/24
07:45
Troponin I 0.039 H*
Physical Exam
Constitutional: No acute distress
EENT: Anicteric
Cardiovascular: Rhythm & rate is regular and Pedal edema present (+3 BLE)
Respiratory: Other (coarse lung sounds throughout)
Neuro/Psych: AO x 3
Data Reviewed
-
Date of Service: May 21, 2024
EKG: Other (tele in SR currently)
Echo: Report Reviewed by me (as noted)
Labs: Labs Reviewed by me
[2024-05-21 10:54] VITALS: BMI 39.3
[2024-05-21 11:25] VITALS: BP 131/79
[2024-05-21] MEDS: KCL 20 MEQ PO (11:41)
[2024-05-21] MEDS: DELTASONE 40 MG PO (12:04)
[2024-05-21] MEDS: ZITHROMAX 250 MG PO (12:04)
[2024-05-21] MEDS: MUCINEX 600 MG PO ×2 (12:04→19:51)
[2024-05-21 12:16] LABS: Magnesium 1.9 mg/dl (1.6-2.3)
--- NOTE | 2024-05-21 12:57 | W.PN.HOSP.TC ---
Addendum entered and electronically signed by Chacorta Camara MD 05/21/24 16:35:
I saw and examined the patient.
The TRAFFIC LIEUTENANT's note was reviewed and I agree with the note.
Patient still with cough with deep inspiration which limits lung exam no wheezing noted on exam cardiac exam is regular extremities with chronic skin changes and bilateral edema. Weights appear inconsistent.
-Continue current therapy
-Weights with standing scale
-Creatinine 1.5. Monitor closely with diuresis
Original Note:
Today's Communication/Plan
-
Continue Lasix
Acapella, Mucinex
Prednisone, azithromycin
Compression therapy for legs
Assessment / Plan
Assessment / Plan
Gen-AAOx3, NAD
HEENT-NC, AT, anicteric, clear oral mm
Neck-supple
CV-reg, no M, +S1/S2
Lungs-faint bilateral expiratory wheezing, rhonchi
Abd-soft, NT, ND
Ext-bilateral lower extremity edema
Musculoskeletal-no cyanosis, clubbing
Skin-warm and dry, bilateral lower extremity hyperpigmentation
Neuro-grossly non-focal
Psych-calm, cooperative
Acute hypoxic respiratory insufficiency -requiring 4 L nasal cannula oxygen. Etiology is pulmonary edema related to heart failure exacerbation, as well as acute bronchitis. Wean down oxygen as able.
Acute on chronic heart failure with preserved EF -suspect related to medication noncompliance. Being homeless is not helping his situation.
Continue IV Lasix. Cardiology following.
BNP 16,500.
Acute bronchitis -continue prednisone, azithromycin. Add Acapella, Mucinex.
Troponin elevation -suspect acute nonischemic myocardial injury due to heart failure. Troponin was elevated previously as well.
Essential hypertension with hypertensive emergency -blood pressure should improve with diuresis.
Paroxysmal atrial fibrillation -treated with ablation in 2022. Not on anticoagulation by patient choice.
CKD 3A -renal function at baseline.
Bilateral lower extremity venous stasis dermatitis -compression therapy with David wraps ordered. Discussed with patient and nurse.
CAD
Gout
History of peptic ulcer disease
Morbid obesity due to excess calories
Full code
Anticipated Discharge: > 48 hours
Subjective/Interval History
-
Date of Service: May 21, 2024
Patient seen and examined. Complaining of cough.
Objective Data
-
Labs:
Laboratory Results
05/21/24
05:13
Sodium 141
Potassium 3.8
Chloride 100
Carbon Dioxide 32 H
BUN 40 H
Creatinine 1.5 H
Glucose 111 H
Calcium 8.3 L
Vital Signs:
Vital Signs
Temp Pulse Resp BP Pulse Ox
97.9 F 70 22 131/79 99
05/21/24 11:25 05/21/24 11:25 05/21/24 11:25 05/21/24 11:25 05/21/24 07:29
I&O
05/20/24 05/21/24 05/22/24
06:59 06:59 06:59
Intake Total 720 / 720
Output Total 5485 / 5485
Balance -4765 / -4765
Review of Systems
-
History Source: Patient
All other systems: Reviewed and negative
[2024-05-21 15:09] VITALS: BP 124/73
--- NOTE | 2024-05-21 16:31 | CM ---
Pt is alert awake oriented. Patient is homeless has been living in his car, Staying at local [facility] .He has a girlfriend is still supporting patient however patient cannot stay with his girlfriend per landlord. He said
he has a hpuse that his sister lives in with her kids . He said he can not stay there.He said he has no food insecurities. He said he has some money.He said he will return to car at ok[facility]
He [facility] oxygen on . He hopes to be off oxygen at ok.
Pharmacy [facility]
PCP Dr Nielson
Patient also has [facility] schedule.
Plan; Watch for oxygen needs.
[2024-05-21 19:00] VITALS: BP 141/86
[2024-05-21] MEDS: MELATONIN 5 MG PO (22:32)
[2024-05-21 23:00] VITALS: BP 132/79
[2024-05-22 03:00] VITALS: BP 140/81
[2024-05-22 06:00] VITALS: BMI 38.6
[2024-05-22 06:02] LABS: Blood Urea Nitrogen 41 mg/dl (9-20); Calcium 8.3 mg/dl (8.4-10.2); Carbon Dioxide 34 mmol/L (22-30); Chloride 98 mmol/L (98-107); Estimated Creatinine Clearance 77 ml/min; Glucose 153 mg/dl (70-99); Potassium 4.5 mmol/L (3.5-5.1); Sodium 140 mmol/L (135-145); eGFR > 60.00
[2024-05-22 07:23] VITALS: BP 136/76
[2024-05-22] MEDS: DELTASONE 40 MG PO (07:57)
[2024-05-22] MEDS: TOPROL XL 25 MG PO ×2 (07:57→20:39)
[2024-05-22] MEDS: ZESTRIL 5 MG PO (07:57)
[2024-05-22] MEDS: MUCINEX 600 MG PO ×2 (07:57→20:39)
[2024-05-22] MEDS: ZITHROMAX 250 MG PO (07:57)
[2024-05-22] MEDS: LASIX 60 MG IV ×2 (08:03→17:29)
--- NOTE | 2024-05-22 10:00 | W.PN.CD ---
Today's Communication / Plan
-
continue diuresis
close monitoring of weight and renal function
still coughing - tx of cough per primaryt teeam
Impression / Plan
-
58 y/o male with hx HFimpEF (was 35-40%, more recently 55-60%), NICM, moderate MR, CKD (looks like 3A range typically), AFIB s/p ablation (not on OAC due to patient declining it), hypertension, non-obstructive CAD, obesity, DM (not on medicines).
We are consulted for HF. His living situation is difficult and likely dietary indiscretions are what lead to HF exacerbations. He has also recently been treated for bronchitis with azithromycin and prednisone.
Acute on chronic HFimpEF:
-ECHO 04/03/24: EF 55-60% Possible basal inferior hypokinesis. Stage III diastolic dysfunction. Dilated right ventricle. Low normal right ventricular systolic function. Severely dilated left atrium. Dilated right atrium. Moderate mitral regurgitation.
Pulmonary artery pressure of 45-50 mmHg. Compared to previous echo on 08/31/2022 ([facility]), the LVEF has improved previously (35-40%). The previous reported degree of mitral regurgitation appears to have improved (previously severe).
-goal weight reported to be 230 lbs. Weight not in yet today- I have ordered it.
-CHF education
-on ACEI and BB
-Of note, GDMT has been limited as he declined SGLT2i. Also lack of follow-up makes MRA unsafe particularly with his CKD.
-continue IV diuresis, which requires intensive monitoring
-weights tredning down and I/O nearly 3 liter negative in AM 05/22/23
Bronchitis:
-he has productive cough and coarse lung sounds, coughing frequently
-recent diagnosis, for which he has been on prednisone and azithromycin
-management per primary
PAF:
-stable in SR with hx ablation
-Not on OAC as patient declines
-Continue metoprolol
CKD 3A:
-monitor with diuresis
HTN:
-on ACEI and BB
-monitor
Physical Exam
Vital Signs/Labs
Vital Signs
Temp Pulse Resp BP Pulse Ox
97.5 F 69 17 136/76 90
05/22/24 07:23 05/22/24 07:23 05/22/24 07:23 05/22/24 07:23 05/22/24 07:23
05/21/24 05/22/24 05/23/24
06:59 06:59 06:59
Actual Weight 114 kg 105.233 kg
05/20/24 07:45
05/22/24 05:21
PT 17.0 Sec (11.4-14.6) H 05/20/24 07:45
INR 1.35 05/20/24 07:45
APTT 32.4 Sec (23.4-35.0) 05/20/24 07:45
Magnesium 1.9 mg/dl (1.6-2.3) 05/21/24 05:13
05/20/24
07:45
Gnt-S-[id number] Pept [id number]
LAB Results
05/20/24
07:45
Troponin I 0.039 H*
Physical Exam
Constitutional: No acute distress
Cardiovascular: Rhythm & rate is regular
Respiratory: Other (limited inspration due to cough )
GI: Soft and Non tender
Neuro/Psych: Alert
Other: Other (edema bilat lower extremities with chronic skin changes)
Data Reviewed
-
Date of Service: May 22, 2024
Medical Decision Making: Reviewed Test Results
EKG: Report Reviewed by me
Medical Tests (PFT, Pathology etc): Report Reviewed by me
Labs: Labs Reviewed by me
[2024-05-22 11:07] VITALS: BP 132/90
[2024-05-22] MEDS: FLOVENT 44 MCG INHALER 2 PUFF INH ×2 (11:24→19:25)
--- NOTE | 2024-05-22 13:00 | W.PN.HOSP.TC ---
Today's Communication/Plan
-
Tessalon
Inhalers
Continue steroids
Continue IV Lasix
Stop azithromycin
Assessment / Plan
Assessment / Plan
Gen-AAOx3, NAD
HEENT-NC, AT, anicteric, clear oral mm
Neck-supple
CV-reg, no M, +S1/S2
Lungs-faint bilateral expiratory wheezing, rhonchi
Abd-soft, NT, ND
Ext-bilateral lower extremity edema
Musculoskeletal-no cyanosis, clubbing
Skin-warm and dry, bilateral lower extremity hyperpigmentation
Neuro-grossly non-focal
Psych-calm, cooperative
Acute hypoxic respiratory insufficiency -requiring 4 L nasal cannula oxygen. Etiology is pulmonary edema related to heart failure exacerbation, as well as acute bronchitis. Wean down oxygen as able.
Acute on chronic heart failure with preserved EF -suspect related to medication noncompliance. Being homeless is not helping his situation.
Continue IV Lasix. Cardiology following.
BNP 16,500. Weight is coming down.
Postinfectious bronchitis/cough -continue prednisone, azithromycin. Add Acapella, Mucinex. Patient states the cough is ongoing since his COVID infection on April 02, more than 7 weeks ago. I explained to patient that unfortunately the cough can
linger for several months. It is no longer an infectious cough.
Continue prednisone, discontinue further antibiotics. Use inhalers. Continue mucolytic's, add Tessalon.
Troponin elevation -suspect acute nonischemic myocardial injury due to heart failure. Troponin was elevated previously as well.
Essential hypertension with hypertensive emergency -blood pressure should improve with diuresis.
Paroxysmal atrial fibrillation -treated with ablation in 2022. Not on anticoagulation by patient choice.
CKD 3A -renal function at baseline.
Bilateral lower extremity venous stasis dermatitis -continue compression therapy with David wraps.
CAD
Gout
History of peptic ulcer disease
Morbid obesity due to excess calories
Full code
Anticipated Discharge: > 48 hours
Subjective/Interval History
-
Date of Service: May 22, 2024
Patient seen and examined. Complaining of cough.
Objective Data
-
Labs:
Laboratory Results
05/22/24
05:21
Sodium 140
Potassium 4.5
Chloride 98
Carbon Dioxide 34 H
BUN 41 H
Creatinine 1.2
Glucose 153 H
Calcium 8.3 L
Vital Signs:
Vital Signs
Temp Pulse Resp BP Pulse Ox
97.8 F 70 14 132/90 99
05/22/24 11:07 05/22/24 11:31 05/22/24 11:31 05/22/24 11:07 05/22/24 11:31
I&O
05/21/24 05/22/24 05/23/24
06:59 06:59 06:59
Intake Total 720 / 720 1200 / 1200
Output Total 5485 / 5485 4140 / 4140
Balance -4765 / -4765 -2940 / -2940
Review of Systems
-
History Source: Patient
All other systems: Reviewed and negative
[2024-05-22 15:09] VITALS: BP 145/80
[2024-05-22] MEDS: TESSALON PERLES 200 MG PO ×2 (17:30→21:43)
[2024-05-22 19:40] VITALS: BP 135/86
[2024-05-22] MEDS: MELATONIN 5 MG PO (21:43)
[2024-05-22] MEDS: TYLENOL 650 MG PO (21:43)
[2024-05-22 23:46] VITALS: BP 128/71
[2024-05-23] VITALS (8 sets, daily range): BP systolic 107–180; BP diastolic 73–106; BMI 38.1
[2024-05-23] MEDS: TYLENOL 650 MG PO (03:43)
[2024-05-23 06:07] LABS: Blood Urea Nitrogen 40 mg/dl (9-20); Calcium 8.6 mg/dl (8.4-10.2); Chloride 91 mmol/L (98-107); Estimated Creatinine Clearance 83 ml/min; Glucose 125 mg/dl (70-99); Potassium 3.6 mmol/L (3.5-5.1); Sodium 137 mmol/L (135-145); eGFR > 60.00
[2024-05-23 06:17] LABS: Carbon Dioxide 36 mmol/L (22-30)
[2024-05-23] MEDS: FLOVENT 44 MCG INHALER 2 PUFF INH ×2 (07:19→17:22)
[2024-05-23] MEDS: MUCINEX 600 MG PO ×2 (08:49→21:17)
[2024-05-23] MEDS: DELTASONE 40 MG PO (08:49)
[2024-05-23] MEDS: TOPROL XL 25 MG PO (08:50)
[2024-05-23] MEDS: ZESTRIL 5 MG PO (08:51)
[2024-05-23] MEDS: TESSALON PERLES 200 MG PO ×3 (08:51→21:17)
[2024-05-23] MEDS: LASIX 60 MG IV ×2 (08:52→15:26)
--- NOTE | 2024-05-23 09:52 | W.PN.CD ---
Today's Communication / Plan
-
cont lasix 60mg IV bid
change Toprol XL to coreg for better BP control
Impression / Plan
-
58 y/o male with hx HFimpEF (was 35-40%, more recently 55-60%), NICM, moderate MR, CKD (looks like 3A range typically), AFIB s/p ablation (not on OAC due to patient declining it), hypertension, non-obstructive CAD, obesity, DM (not on medicines).
We are consulted for HF. His living situation is difficult and likely dietary indiscretions are what lead to HF exacerbations. He has also recently been treated for bronchitis with azithromycin and prednisone.
Acute on chronic HFimpEF: severe
-ECHO 04/03/24: EF 55-60% Possible basal inferior hypokinesis. Stage III diastolic dysfunction. Dilated right ventricle. Low normal right ventricular systolic function. Severely dilated left atrium. Dilated right atrium. Moderate mitral regurgitation.
Pulmonary artery pressure of 45-50 mmHg. Compared to previous echo on 08/31/2022 ([facility]), the LVEF has improved previously (35-40%). The previous reported degree of mitral regurgitation appears to have improved (previously severe).
-goal weight reported to be 230 lbs. however, it is likely lower than this, and need to reset this admission after aggressive diuresis
-on ACEI and BB
-Of note, GDMT has been limited as he declined SGLT2i. Also lack of follow-up makes MRA unsafe particularly with his CKD.
-continue IV diuresis with lasix 60mg IV bid, which requires intensive monitoring of labs, tele
HTN
-BP uncontrolled: change Toprol XL to coreg
-cont lisinopril 5mg daily
Bronchitis:
-he has productive cough and coarse lung sounds, coughing frequently
-recent diagnosis, for which he has been on prednisone and azithromycin
-management per primary
Parox AFib:
-stable in SR with hx ablation
-Not on OAC as patient declines
-Continue beta fani
CKD 3A:
-monitor with diuresis: seems improved
Physical Exam
Vital Signs/Labs
Vital Signs
Temp Pulse Resp BP Pulse Ox
97.6 F 69 16 157/96 96
05/23/24 08:12 05/23/24 08:52 05/23/24 07:35 05/23/24 08:52 05/23/24 07:35
05/22/24 05/23/24 05/24/24
06:59 06:59 06:59
Actual Weight 105.233 kg 103.901 kg
05/20/24 07:45
05/23/24 05:18
PT 17.0 Sec (11.4-14.6) H 05/20/24 07:45
INR 1.35 05/20/24 07:45
APTT 32.4 Sec (23.4-35.0) 05/20/24 07:45
Magnesium 1.9 mg/dl (1.6-2.3) 05/21/24 05:13
05/20/24
07:45
Kys-W-Tomnauswtkr Pept [id number]
Physical Exam
Constitutional: No acute distress and Comfortable
EENT: Moist mucous membranes
Cardiovascular: Rhythm & rate is regular, Pedal edema present, JVD present and Systolic murmur present
Respiratory: Respiratory effort normal and Lungs clear to auscul.
Neuro/Psych: AO x 3
Data Reviewed
-
Date of Service: May 23, 2024
EKG: Other (Tele: SR, brief SVT, brief NSVT)
Labs: Labs Reviewed by me
--- NOTE | 2024-05-23 13:07 | W.PN.HOSP.TC ---
Today's Communication/Plan
-
Continue diuresis
Assessment / Plan
Assessment / Plan
Gen-AAOx3, NAD
HEENT-NC, AT, anicteric, clear oral mm
Neck-supple
CV-reg, no M, +S1/S2
Lungs-faint bilateral expiratory wheezing, rhonchi
Abd-soft, NT, ND
Ext-bilateral lower extremity edema
Musculoskeletal-no cyanosis, clubbing
Skin-warm and dry, bilateral lower extremity hyperpigmentation
Neuro-grossly non-focal
Psych-calm, cooperative
Acute hypoxic respiratory insufficiency -oxygenation improving, now on room air. Etiology is pulmonary edema related to heart failure exacerbation, as well as acute bronchitis. Wean down oxygen as able.
Acute on chronic heart failure with preserved EF -suspect related to medication noncompliance. Being homeless is not helping his situation.
Continue IV Lasix. Cardiology following. Unfortunately developing contraction alkalosis with rising bicarbonate level. Monitor for now.
BNP 16,500. Weight is coming down.
JAYLAN on CKD 3A -creatinine improved to 1.1. Suspect cardiorenal syndrome.
Postinfectious bronchitis/cough -continue prednisone, stopped azithromycin. Continue Acapella, Mucinex. Patient states the cough is ongoing since his COVID infection on April 02, more than 7 weeks ago. I explained to patient that unfortunately
the cough can linger for several months. It is no longer an infectious cough.
Continue inhalers.
Troponin elevation -suspect acute nonischemic myocardial injury due to heart failure. Troponin was elevated previously as well.
Essential hypertension with hypertensive emergency -blood pressure should improve with diuresis.
Paroxysmal atrial fibrillation -treated with ablation in 2022. Not on anticoagulation by patient choice.
Bilateral lower extremity venous stasis dermatitis -continue compression therapy with David wraps.
CAD -stable.
Gout
History of peptic ulcer disease
Morbid obesity due to excess calories
Full code
Anticipated Discharge: > 48 hours
Subjective/Interval History
-
Date of Service: May 23, 2024
Patient seen and examined. Overall improving but still with persistent cough.
Objective Data
-
Labs:
Laboratory Results
05/23/24
05:18
Sodium 137
Potassium 3.6
Chloride 91 L
Carbon Dioxide 36 H
BUN 40 H
Creatinine 1.1
Glucose 125 H
Calcium 8.6
Vital Signs:
Vital Signs
Temp Pulse Resp BP Pulse Ox
98.4 F 81 16 147/99 94
05/23/24 11:00 05/23/24 11:00 05/23/24 11:00 05/23/24 11:00 05/23/24 11:01
I&O
05/22/24 05/23/24 05/24/24
06:59 06:59 06:59
Intake Total 1200 / 1200 480 / 480
Output Total 4140 / 4140 2975 / 2975
Balance -2940 / -2940 -2495 / -2495
Review of Systems
-
History Source: Patient
All other systems: Reviewed and negative
[2024-05-23] MEDS: KCL 20 MEQ PO (13:50)
--- NOTE | 2024-05-23 16:26 | CM ---
Continue with LAsix IV 80mg BID
Continues with respiratory treatments
Weaned to room air Pox 94%
Pt given recourses including [facility] .
Pt staying at [facility] [employer] locations. Pt has car.
PLAN To car and [facility]
[2024-05-23] MEDS: MELATONIN 5 MG PO (21:17)
[2024-05-23] MEDS: COREG 12.5 MG PO (21:17)
[2024-05-24 03:37] VITALS: BP 136/83
[2024-05-24 06:47] VITALS: BMI 37.3
[2024-05-24] MEDS: FLOVENT 44 MCG INHALER 2 PUFF INH ×2 (07:40→18:04)
[2024-05-24 07:48] VITALS: BP 144/93
[2024-05-24 08:09] LABS: Blood Urea Nitrogen 43 mg/dl (9-20); Calcium 8.9 mg/dl (8.4-10.2); Chloride 90 mmol/L (98-107); Estimated Creatinine Clearance 75 ml/min; Glucose 117 mg/dl (70-99); Sodium 138 mmol/L (135-145); eGFR > 60.00
[2024-05-24 08:20] LABS: Carbon Dioxide 39 mmol/L (22-30)
[2024-05-24] MEDS: ZESTRIL 5 MG PO (08:27)
[2024-05-24] MEDS: MUCINEX 600 MG PO ×2 (08:27→11:20)
[2024-05-24] MEDS: COREG 12.5 MG PO ×2 (08:27→20:41)
[2024-05-24] MEDS: TESSALON PERLES 200 MG PO ×3 (08:27→20:42)
[2024-05-24] MEDS: KCL 20 MEQ PO (08:27)
[2024-05-24] MEDS: DELTASONE 40 MG PO (08:27)
[2024-05-24] MEDS: LASIX 60 MG IV ×2 (08:28→17:11)
--- NOTE | 2024-05-24 10:03 | W.PN.HOSP.TC ---
Today's Communication/Plan
-
Increase Mucinex
Taper prednisone
Continue inhalers
Continue Lasix
Assessment / Plan
Assessment / Plan
Gen-AAOx3, NAD
HEENT-NC, AT, anicteric, clear oral mm
Neck-supple
CV-reg, no M, +S1/S2
Lungs-faint bilateral expiratory wheezing, rhonchi
Abd-soft, NT, ND
Ext-bilateral lower extremity edema
Musculoskeletal-no cyanosis, clubbing
Skin-warm and dry, bilateral lower extremity hyperpigmentation
Neuro-grossly non-focal
Psych-calm, cooperative
Acute hypoxic respiratory insufficiency -oxygenation improving, now on room air. Etiology is pulmonary edema related to heart failure exacerbation, as well as bronchitis.
Acute on chronic heart failure with preserved EF -suspect related to medication noncompliance. Being homeless is not helping his situation.
Continue IV Lasix. Cardiology following. Unfortunately developing contraction alkalosis with rising bicarbonate level. Monitor for now.
BNP 16,500. Weight is coming down.
JAYLAN on CKD 3A -creatinine improved. Suspect cardiorenal syndrome.
Postinfectious bronchitis/cough -continue prednisone, begin taper. Continue Acapella, increase Mucinex to 1200 mg twice daily. Patient states the cough is ongoing since his COVID infection on April 02, more than 7 weeks ago. I explained to
patient that unfortunately the cough can linger for several months. It is no longer an infectious cough. Sputum culture with usual respiratory alia.
Continue inhalers.
Troponin elevation -suspect acute nonischemic myocardial injury due to heart failure. Troponin was elevated previously as well.
Essential hypertension with hypertensive emergency -blood pressure should improve with diuresis.
Paroxysmal atrial fibrillation -treated with ablation in 2022. Not on anticoagulation by patient choice.
Bilateral lower extremity venous stasis dermatitis -continue compression therapy with David wraps.
CAD -stable.
Gout
History of peptic ulcer disease
Morbid obesity due to excess calories
Full code
Anticipated Discharge: > 48 hours
Subjective/Interval History
-
Date of Service: May 24, 2024
Patient seen and examined. Complaining of cough with deep breathing.
Objective Data
-
Labs:
Laboratory Results
05/24/24
06:02
Sodium 138
Potassium 4.0
Chloride 90 L
Carbon Dioxide 39 H
BUN 43 H
Creatinine 1.2
Glucose 117 H
Calcium 8.9
Vital Signs:
Vital Signs
Temp Pulse Resp BP Pulse Ox
97.4 F 69 16 144/93 95
05/24/24 07:48 05/24/24 07:48 05/24/24 07:48 05/24/24 07:48 05/24/24 07:48
I&O
05/23/24 05/24/24 05/25/24
06:59 06:59 06:59
Intake Total 480 / 480 1440 / 1440
Output Total 2975 / 2975 2500 / 2500
Balance -2495 / -2495 -1060 / -1060
Review of Systems
-
History Source: Patient
All other systems: Reviewed and negative
--- NOTE | 2024-05-24 10:12 | W.PN.CD ---
Today's Communication / Plan
-
Cont IV diuresis
Impression / Plan
-
58 y/o male with hx HFimpEF (was 35-40%, more recently 55-60%), NICM, moderate MR, CKD (looks like 3A range typically), AFIB s/p ablation (not on OAC due to patient declining it), hypertension, non-obstructive CAD, obesity, DM (not on medicines).
We are consulted for HF. His living situation is difficult and likely dietary indiscretions are what lead to HF exacerbations. He has also recently been treated for bronchitis with azithromycin and prednisone.
Acute on chronic HFimpEF: severe
-ECHO 04/03/24: EF 55-60% Possible basal inferior hypokinesis. Stage III diastolic dysfunction. Dilated right ventricle. Low normal right ventricular systolic function. Severely dilated left atrium. Dilated right atrium. Moderate mitral regurgitation.
Pulmonary artery pressure of 45-50 mmHg. Compared to previous echo on 08/31/2022 ([facility]), the LVEF has improved previously (35-40%). The previous reported degree of mitral regurgitation appears to have improved (previously severe).
-goal weight reported to be 230 lbs. however, it is likely lower than this, and need to reset this admission after aggressive diuresis
-on ACEI and BB
-Of note, GDMT has been limited as he declined SGLT2i. Also lack of follow-up makes MRA unsafe particularly with his CKD.
-continue IV diuresis with lasix 60mg IV bid, which requires intensive monitoring of labs, tele
HTN
-BP uncontrolled: change Toprol XL to coreg
-cont lisinopril 5mg daily
Bronchitis:
-he has productive cough and coarse lung sounds, coughing frequently
-recent diagnosis, for which he has been on prednisone and azithromycin
-management per primary
Parox AFib:
-stable in SR with hx ablation
-Not on OAC as patient declines
-Continue beta fani
CKD 3A:
-monitor with diuresis: seems improved
Subjective: Coughing improved overall feeling better
Physical Exam
Vital Signs/Labs
Vital Signs
Temp Pulse Resp BP Pulse Ox
97.4 F 69 16 144/93 95
05/24/24 07:48 05/24/24 07:48 05/24/24 07:48 05/24/24 07:48 05/24/24 07:48
05/23/24 05/24/24 05/25/24
06:59 06:59 06:59
Actual Weight 229 lb 1 oz 224 lb 7 oz
05/20/24 07:45
05/24/24 06:02
PT 17.0 Sec (11.4-14.6) H 05/20/24 07:45
INR 1.35 05/20/24 07:45
APTT 32.4 Sec (23.4-35.0) 05/20/24 07:45
Magnesium 1.9 mg/dl (1.6-2.3) 05/21/24 05:13
05/20/24
07:45
Sbb-[id number]-Cxqpfoaycnt Pept [id number]
Physical Exam
Constitutional: No acute distress and Comfortable
EENT: Anicteric
Cardiovascular: Rhythm & rate is regular and Pedal edema present
Respiratory: Respiratory effort normal and Lungs clear to auscul.
GI: Soft
Neuro/Psych: AO x 3
Data Reviewed
-
Date of Service: May 24, 2024
EKG: Tracing Personally Visualized and interpreted (sr)
Echo: Report Reviewed by me
Labs: Labs Reviewed by me
[2024-05-24 11:28] VITALS: BP 125/83
[2024-05-24 15:03] VITALS: BP 138/94
[2024-05-24 19:30] VITALS: BP 144/85
[2024-05-24] MEDS: MUCINEX 1200 MG PO (20:42)
[2024-05-24] MEDS: MELATONIN 5 MG PO (20:42)
[2024-05-24 23:00] VITALS: BP 143/84
--- NOTE | 2024-05-25 00:09 | PTCARENOTE ---
Tele alarm - 11 beat run Vtach. Pt sleeping comfortably, arousable. Rhythm returned immediately back to baseline. FRUIT GROWER made aware, ordered mag check.
[2024-05-25 03:40] VITALS: BP 151/83
[2024-05-25 05:39] VITALS: BMI 38.0
[2024-05-25 07:14] LABS: Blood Urea Nitrogen 52 mg/dl (9-20); Calcium 9.2 mg/dl (8.4-10.2); Carbon Dioxide 35 mmol/L (22-30); Chloride 91 mmol/L (98-107); Estimated Creatinine Clearance 75 ml/min; Glucose 123 mg/dl (70-99); Potassium 3.7 mmol/L (3.5-5.1); Sodium 137 mmol/L (135-145); eGFR > 60.00
[2024-05-25 07:30] VITALS: BP 146/88
[2024-05-25] MEDS: FLOVENT 44 MCG INHALER 2 PUFF INH ×2 (07:38→19:50)
[2024-05-25] MEDS: LASIX 60 MG IV ×2 (08:49→17:21)
[2024-05-25] MEDS: TESSALON PERLES 200 MG PO ×3 (08:50→20:18)
[2024-05-25] MEDS: MUCINEX 1200 MG PO ×2 (08:50→20:18)
[2024-05-25] MEDS: DELTASONE 30 MG PO (08:50)
[2024-05-25] MEDS: COREG 12.5 MG PO ×2 (08:54→20:17)
[2024-05-25] MEDS: KCL 20 MEQ PO (08:55)
[2024-05-25] MEDS: ZESTRIL 5 MG PO (09:37)
--- NOTE | 2024-05-25 09:53 | W.PN.HOSP.TC ---
Today's Communication/Plan
-
Continue current care
Assessment / Plan
Assessment / Plan
Gen-AAOx3, NAD
HEENT-NC, AT, anicteric, clear oral mm
Neck-supple
CV-reg, no M, +S1/S2
Lungs-mostly clear bilaterally
Abd-soft, NT, ND
Ext-bilateral lower extremity edema
Musculoskeletal-no cyanosis, clubbing
Skin-warm and dry, bilateral lower extremity hyperpigmentation
Neuro-grossly non-focal
Psych-calm, cooperative
Acute hypoxic respiratory insufficiency -oxygenation improving, now on room air. Etiology is pulmonary edema related to heart failure exacerbation, as well as bronchitis.
Acute on chronic heart failure with preserved EF -suspect related to medication noncompliance. Being homeless is not helping his situation.
Continue IV Lasix. Cardiology following. Unfortunately developing contraction alkalosis with rising bicarbonate level. Monitor for now.
BNP 16,500. Weight is coming down.
JAYLAN on CKD 3A -creatinine improved. Suspect cardiorenal syndrome.
Postinfectious bronchitis/cough -clinically improving. Continue prednisone, begin taper. Continue Acapella, Mucinex to 1200 mg twice daily. Patient states the cough is ongoing since his COVID infection on April 02, more than 7 weeks ago. I
explained to patient that unfortunately the cough can linger for several months. It is no longer an infectious cough. Sputum culture with usual respiratory alia.
Continue inhalers.
Troponin elevation -suspect acute nonischemic myocardial injury due to heart failure. Troponin was elevated previously as well.
Essential hypertension with hypertensive emergency -hypertensive emergency resolved. Continue meds.
Paroxysmal atrial fibrillation -treated with ablation in 2022. Not on anticoagulation by patient choice.
Bilateral lower extremity venous stasis dermatitis -continue compression therapy with David wraps. Add topical Lac-Hydrin.
CAD -stable.
Gout
History of peptic ulcer disease
Morbid obesity due to excess calories
Full code
Anticipated Discharge: 24 - 48 hours
Subjective/Interval History
-
Date of Service: May 25, 2024
Patient seen and examined. Overall feeling better. Still complaining of cough.
Objective Data
-
Labs:
Laboratory Results
05/25/24
05:26
Sodium 137
Potassium 3.7
Chloride 91 L
Carbon Dioxide 35 H
BUN 52 H
Creatinine 1.2
Glucose 123 H
Calcium 9.2
Vital Signs:
Vital Signs
Temp Pulse Resp BP Pulse Ox
97.8 F 79 18 146/88 95
05/25/24 07:30 05/25/24 07:41 05/25/24 07:41 05/25/24 07:30 05/25/24 07:41
I&O
05/24/24 05/25/24 05/26/24
06:59 06:59 06:59
Intake Total 1440 / 1440 1200 / 1200
Output Total 2500 / 2500 2700 / 2700
Balance -1060 / -1060 -1500 / -1500
Review of Systems
-
History Source: Patient
All other systems: Reviewed and negative
[2024-05-25] MEDS: LAC HYDRIN, AM LACTIN LOTION 1 APPLIC TOPICAL ×2 (10:49→20:20)
[2024-05-25 11:30] VITALS: BP 115/71
--- NOTE | 2024-05-25 11:50 | W.PN.CD ---
Today's Communication / Plan
-
Cont diuresis
Impression / Plan
-
58 y/o male with hx HFimpEF (was 35-40%, more recently 55-60%), NICM, moderate MR, CKD (looks like 3A range typically), AFIB s/p ablation (not on OAC due to patient declining it), hypertension, non-obstructive CAD, obesity, DM (not on medicines).
We are consulted for HF. His living situation is difficult and likely dietary indiscretions are what lead to HF exacerbations. He has also recently been treated for bronchitis with azithromycin and prednisone.
Acute on chronic HFimpEF: severe
-ECHO 04/03/24: EF 55-60% Possible basal inferior hypokinesis. Stage III diastolic dysfunction. Dilated right ventricle. Low normal right ventricular systolic function. Severely dilated left atrium. Dilated right atrium. Moderate mitral regurgitation.
Pulmonary artery pressure of 45-50 mmHg. Compared to previous echo on 08/31/2022 ([facility]), the LVEF has improved previously (35-40%). The previous reported degree of mitral regurgitation appears to have improved (previously severe).
-goal weight reported to be 230 lbs; although will be lower, his weight is 4 lbs up today at 228 lbs
-on ACEI and BB
-Of note, GDMT has been limited as he declined SGLT2i. Also lack of follow-up makes MRA unsafe particularly with his CKD.
-continue IV diuresis with lasix 60mg IV bid, which requires intensive monitoring of labs, tele
HTN
-BP uncontrolled: change Toprol XL to coreg
-cont lisinopril 5mg daily
Bronchitis:
-he has productive cough and coarse lung sounds, coughing frequently
-recent diagnosis, for which he has been on prednisone and azithromycin
-management per primary
Parox AFib:
-stable in SR with hx ablation
-Not on OAC as patient declines
-Continue beta fani
CKD 3A:
-monitor with diuresis: seems improved
Subjective: Coughing improved overall feeling better
Physical Exam
Vital Signs/Labs
Vital Signs
Temp Pulse Resp BP Pulse Ox
97.4 F 72 16 115/71 95
05/25/24 11:30 05/25/24 11:30 05/25/24 11:30 05/25/24 11:30 05/25/24 11:30
05/24/24 05/25/24 05/26/24
06:59 06:59 06:59
Actual Weight 224 lb 7 oz 228 lb 4.8 oz
05/20/24 07:45
05/25/24 05:26
PT 17.0 Sec (11.4-14.6) H 05/20/24 07:45
INR 1.35 05/20/24 07:45
APTT 32.4 Sec (23.4-35.0) 05/20/24 07:45
Magnesium 1.9 mg/dl (1.6-2.3) 05/21/24 05:13
05/20/24
07:45
Kcw-C-Odwdfnfrrzv Pept [id number]
Physical Exam
Constitutional: No acute distress and Comfortable
EENT: Anicteric
Cardiovascular: Rhythm & rate is regular and Pedal edema present
Respiratory: Respiratory effort normal and Lungs clear to auscul.
GI: Soft
Neuro/Psych: AO x 3
Data Reviewed
-
Date of Service: May 25, 2024
EKG: Tracing Personally Visualized and interpreted (sr)
Echo: Report Reviewed by me
Labs: Labs Reviewed by me
[2024-05-25 16:00] VITALS: BP 139/81
[2024-05-25 19:00] VITALS: BP 140/86
[2024-05-25] MEDS: MELATONIN 5 MG PO (20:18)
[2024-05-25 23:00] VITALS: BP 105/68
[2024-05-26 03:00] VITALS: BP 143/88
[2024-05-26 06:00] VITALS: BMI 36.5
[2024-05-26 06:08] LABS: Blood Urea Nitrogen 57 mg/dl (9-20); Calcium 9.4 mg/dl (8.4-10.2); Carbon Dioxide 38 mmol/L (22-30); Chloride 94 mmol/L (98-107); Estimated Creatinine Clearance 69 ml/min; Glucose 128 mg/dl (70-99); Sodium 138 mmol/L (135-145); eGFR > 60.00
[2024-05-26 07:49] VITALS: BP 149/93
[2024-05-26] MEDS: FLOVENT 44 MCG INHALER 2 PUFF INH ×2 (07:49→20:37)
[2024-05-26] MEDS: KCL 20 MEQ PO (08:08)
[2024-05-26] MEDS: COREG 12.5 MG PO ×2 (08:08→20:54)
[2024-05-26] MEDS: DELTASONE 30 MG PO (08:09)
[2024-05-26] MEDS: TESSALON PERLES 200 MG PO ×3 (08:09→20:54)
[2024-05-26] MEDS: MUCINEX 1200 MG PO ×2 (08:09→20:54)
[2024-05-26] MEDS: LAC HYDRIN, AM LACTIN LOTION 1 APPLIC TOPICAL ×2 (08:10→20:54)
[2024-05-26] MEDS: LASIX 60 MG IV (08:11)
[2024-05-26] MEDS: ZESTRIL 5 MG PO (08:24)
--- NOTE | 2024-05-26 08:25 | W.PN.CD ---
Today's Communication / Plan
-
Move to PO Lasix and monitor
If BP needs more meds then increase ANGUS-I and Coreg
If he proves to f/u then stopping KCl and adding MRA (Aldactone) makes good sense
If follows up and willing adding SGLT-I makes sense for his history of HF and CKD
He has not shown up for his followup in our office but he should see Dr. Camara in followup
May benefit from [facility] followup
Impression / Plan
-
58 y/o male with hx HFimpEF (was 35-40%, more recently 55-60%), NICM, moderate MR, CKD (looks like 3A range typically), AFIB s/p ablation (not on OAC due to patient declining it), hypertension, non-obstructive CAD, obesity, DM (not on medicines).
We are consulted for HF. His living situation is difficult and likely dietary indiscretions are what lead to HF exacerbations. He has also recently been treated for bronchitis with azithromycin and prednisone.
Acute on chronic HFimpEF
- Will need new goal weight, today's 99.4 kg/218.7 pounds seems reasonable
- Meds limited as detailed (lack of f/u makes MRA unsafe, declines SGLT-I)
- Continue lisinopril 5 daily, Coreg 12.5 bid
- Move to PO Lasix, can try Lasix 40 bid
- Na+/fluid restriction
- LE wraps
HTN, variable now, 105 to 149 systolic so wont increase meds
Bronchitis:
Parox AFib, s/p ablation, in sinus, declines anticoagulation
CKD 3A, improved with diuresis
Subjective: Feels better.
Data:
-ECHO 04/03/24: EF 55-60% Possible basal inferior hypokinesis. Stage III diastolic dysfunction. Dilated right ventricle. Low normal right ventricular systolic function. Severely dilated left atrium. Dilated right atrium. Moderate mitral regurgitation.
Pulmonary artery pressure of 45-50 mmHg. Compared to previous echo on 08/31/2022 ([facility]), the LVEF has improved previously (35-40%). The previous reported degree of mitral regurgitation appears to have improved (previously severe).
Physical Exam
Vital Signs/Labs
Vital Signs
Temp Pulse Resp BP Pulse Ox
97.5 F 79 16 149/93 95
05/26/24 07:49 05/26/24 07:52 05/26/24 07:52 05/26/24 07:49 05/26/24 07:52
05/25/24 05/26/24 05/27/24
06:59 06:59 06:59
Actual Weight 103.555 kg 99.427 kg
05/20/24 07:45
05/26/24 05:03
PT 17.0 Sec (11.4-14.6) H 05/20/24 07:45
INR 1.35 05/20/24 07:45
APTT 32.4 Sec (23.4-35.0) 05/20/24 07:45
Magnesium 1.9 mg/dl (1.6-2.3) 05/21/24 05:13
05/20/24
07:45
Mzt-T-Serfqadepix Pept [id number]
Physical Exam
Constitutional: No acute distress
Cardiovascular: Rhythm & rate is regular and Pedal edema present (tr to mild, improved)
Respiratory: Respiratory effort normal and Lungs clear to auscul.
GI: Soft and Distention absent
Neuro/Psych: AO x 3
Data Reviewed
-
Date of Service: May 26, 2024
[2024-05-26 10:59] VITALS: BP 120/83
--- NOTE | 2024-05-26 12:36 | W.PN.HOSP.TC ---
Today's Communication/Plan
-
switch to PO lasix and monitor output
will need close f/u iwth cards and vascular outpt; also f/u with pcp - would benefit from our clinic - is on medicaid
Assessment / Plan
Assessment / Plan
Gen-AAOx3, NAD
HEENT-NC, AT, anicteric, clear oral mm
Neck-supple
CV-reg, no M, +S1/S2
Lungs-mostly clear bilaterally
Abd-soft, NT, ND
Ext-bilateral lower extremity edema
Musculoskeletal-no cyanosis, clubbing
Skin-warm and dry, bilateral lower extremity hyperpigmentation
Neuro-grossly non-focal
Psych-calm, cooperative
Acute hypoxic respiratory insufficiency -oxygenation improving, now on room air. Etiology is pulmonary edema related to heart failure exacerbation, as well as bronchitis.
Acute on chronic heart failure with preserved EF -suspect related to medication noncompliance. Being homeless is not helping his situation.
switch to PO lasix. Cardiology following. BNP 16,500. Weight is coming down.
JAYLAN on CKD 3A -creatinine improved. Suspect cardiorenal syndrome.
Postinfectious bronchitis/cough -clinically improving. Continue prednisone, begin taper. Continue Acapella, Mucinex to 1200 mg twice daily. Patient states the cough is ongoing since his COVID infection on April 02, more than 7 weeks ago. I
explained to patient that unfortunately the cough can linger for several months. It is no longer an infectious cough. Sputum culture with usual respiratory alia.
Continue inhalers.
Troponin elevation -suspect acute nonischemic myocardial injury due to heart failure. Troponin was elevated previously as well.
Essential hypertension with hypertensive emergency -hypertensive emergency resolved. Continue meds.
Paroxysmal atrial fibrillation -treated with ablation in 2022. Not on anticoagulation by patient choice.
Bilateral lower extremity venous stasis dermatitis -continue compression therapy with David wraps. Add topical Lac-Hydrin. F/u vascular outpt
CAD -stable.
Gout
History of peptic ulcer disease
Morbid obesity due to excess calories
Full code
Anticipated Discharge: Within 24 hours
Subjective/Interval History
-
Date of Service: May 26, 2024
no acute events overnight
Objective Data
-
Labs:
Laboratory Results
05/26/24
05:03
Sodium 138
Potassium 4.0
Chloride 94 L
Carbon Dioxide 38 H
BUN 57 H
Creatinine 1.3
Glucose 128 H
Calcium 9.4
Vital Signs:
Vital Signs
Temp Pulse Resp BP Pulse Ox
97.6 F 66 18 120/83 93
05/26/24 10:59 05/26/24 10:59 05/26/24 10:59 05/26/24 10:59 05/26/24 10:59
I&O
05/25/24 05/26/24 05/27/24
06:59 06:59 06:59
Intake Total 1200 / 1200 950 / 950 240 / 240
Output Total 2700 / 2700 1950 / 1950 1500 / 1500
Balance -1500 / -1500 -1000 / -1000 -1260 / -1260
Review of Systems
-
History Source: Patient
All other systems: Not reviewed unless documented
Physical Exam
-
General: No Apparent Distress
HEENT: Normocephalic
Respiratory: Clear to Auscultation
GI: Soft, Nontender and Nondistended
Musculoskeletal: No Clubbing, No Cyanosis and No Edema
Skin: Warm and Other (b/l LE venous stasis)
Neuro: Awake, Alert, Oriented and AO x 3
Psych: Calm
Data Reviewed
-
Total Time Spent with Patient (in minutes): 45
Diagnostic Radiology: Report Reviewed by me
Labs: Labs Reviewed by me
[2024-05-26 16:00] VITALS: BP 139/82
[2024-05-26] MEDS: LASIX 40 MG PO (16:39)
--- NOTE | 2024-05-26 16:40 | CM ---
Weaned to room air.Pox 95%.
Changed to po Lasix.
Cardiology involved and suggested cardiac clinic after dc.
Pt has a sister who lives in his house . He said he can not live with her because she has a family.
PLAN Discharge to car and code blue fpc prn
[2024-05-26] MEDS: MELATONIN 5 MG PO (20:54)
[2024-05-26 23:00] VITALS: BP 107/73
[2024-05-27] MEDS: ANESTHETIC LOZENGE 1 LOZENGE PO ×3 (04:31→19:55)
[2024-05-27 06:00] VITALS: BMI 36.5
[2024-05-27 06:03] LABS: Blood Urea Nitrogen 64 mg/dl (9-20); Calcium 9.1 mg/dl (8.4-10.2); Carbon Dioxide 34 mmol/L (22-30); Chloride 92 mmol/L (98-107); Estimated Creatinine Clearance 55 ml/min; Glucose 130 mg/dl (70-99); Sodium 139 mmol/L (135-145); eGFR 49.94
[2024-05-27 06:15] LABS: Hematocrit 45.7 % (39.0-52.0); Hemoglobin 13.3 g/dL (13.0-18.0); Mean Corp Hgb Conc. 29.1 g/dL (33.0-37.0); Mean Corpuscular Hgb 22.5 pg (27.0-31.0); Mean Corpuscular Volume 77.2 fL (80.0-94.0); Mean Platelet Volume 9.1 fL (7.4-10.4); Platelet Count 269 10^3/uL (130-400); Red Blood Cell Count 5.92 10^6/uL (4.70-6.10); Red Cell Dist. Width 23.5 % (11.5-14.5); White Blood Cell Count 10.6 10^3/uL (4.8-10.8)
[2024-05-27] MEDS: FLOVENT 44 MCG INHALER 2 PUFF INH ×2 (07:35→19:53)
[2024-05-27 07:39] VITALS: BP 123/66
[2024-05-27] MEDS: MUCINEX 1200 MG PO ×2 (08:58→19:55)
[2024-05-27] MEDS: TESSALON PERLES 200 MG PO ×3 (08:59→21:27)
[2024-05-27] MEDS: DELTASONE 30 MG PO (08:59)
[2024-05-27] MEDS: LASIX 40 MG PO (08:59)
[2024-05-27] MEDS: KCL 20 MEQ PO (09:00)
[2024-05-27] MEDS: ZESTRIL 5 MG PO (09:00)
[2024-05-27] MEDS: LAC HYDRIN, AM LACTIN LOTION 1 APPLIC TOPICAL ×2 (09:00→19:55)
[2024-05-27] MEDS: COREG PO (09:00)
--- NOTE | 2024-05-27 09:10 | W.PN.CD ---
Today's Communication / Plan
-
Creatinine up to 1.6 likely related to overdiuresis.
Lasix, lisinopril and potassium on hold however patient is already received morning meds.
Will give back some additional fluid today
Impression / Plan
-
58 y/o male with hx HFimpEF (was 35-40%, more recently 55-60%), NICM, moderate MR, CKD (looks like 3A range typically), AFIB s/p ablation (not on OAC due to patient declining it), hypertension, non-obstructive CAD, obesity, DM (not on medicines).
We are consulted for HF. His living situation is difficult and likely dietary indiscretions are what lead to HF exacerbations. He has also recently been treated for bronchitis with azithromycin and prednisone.
Acute on chronic HFimpEF
-Patient appears to be down about 7 to 8 kg but now creatinine has risen to 1.5
- Meds limited as detailed (lack of f/u makes MRA unsafe, declines SGLT-I)
- Coreg 12.5 bid
-Hold Lasix with rising creatinine. Reassess initiation of oral Lasix after creatinine improves.
-Hold potassium supplementation and hold lisinopril until tomorrow's creatinine is seen
- Na+/fluid restriction
- LE wraps
JAYLAN. Creatinine up to 1.6 likely related to overdiuresis. Blood pressures remained stable
-Hold Lasix
-Hold potassium
-Hold lisinopril until creatinine reassessed in a.m.
HTN, variable now, 105 to 149 systolic so wont increase meds
Bronchitis:
Parox AFib, s/p ablation, in sinus, declines anticoagulation
CKD 3A, improved with diuresis
Subjective: Feels better.
Data:
-ECHO 04/03/24: EF 55-60% Possible basal inferior hypokinesis. Stage III diastolic dysfunction. Dilated right ventricle. Low normal right ventricular systolic function. Severely dilated left atrium. Dilated right atrium. Moderate mitral regurgitation.
Pulmonary artery pressure of 45-50 mmHg. Compared to previous echo on 08/31/2022 ([facility]), the LVEF has improved previously (35-40%). The previous reported degree of mitral regurgitation appears to have improved (previously severe).
Physical Exam
Vital Signs/Labs
Vital Signs
Temp Pulse Resp BP Pulse Ox
97.4 F 58 14 123/66 94
05/27/24 07:39 05/27/24 09:00 05/27/24 07:40 05/27/24 07:39 05/27/24 07:40
05/26/24 05/27/24 05/28/24
06:59 06:59 06:59
Actual Weight 99.427 kg 99.45 kg
05/27/24 05:10
05/27/24 05:10
PT 17.0 Sec (11.4-14.6) H 05/20/24 07:45
INR 1.35 05/20/24 07:45
APTT 32.4 Sec (23.4-35.0) 05/20/24 07:45
Magnesium 1.9 mg/dl (1.6-2.3) 05/21/24 05:13
05/20/24
07:45
Cin-A-Raghtlciobb Pept [id number]
Physical Exam
Constitutional: No acute distress
Cardiovascular: Rhythm & rate is regular
Respiratory: Respiratory effort normal
GI: Soft
Other: Other (Mild residual lower extremity edema with chronic skin change)
Data Reviewed
-
Date of Service: May 27, 2024
Medical Decision Making: Reviewed Test Results
Echo: Report Reviewed by me
X-Ray/CT/US/MRI/NUC/PET: Report Reviewed by me
Medical Tests (PFT, Pathology etc): Report Reviewed by me
Labs: Labs Reviewed by me
--- NOTE | 2024-05-27 13:48 | W.PN.HOSP.TC ---
Today's Communication/Plan
-
hold diuretic, acei
monitor scr
Assessment / Plan
Assessment / Plan
Gen-AAOx3, NAD
HEENT-NC, AT, anicteric, clear oral mm
Neck-supple
CV-reg, no M, +S1/S2
Lungs-mostly clear bilaterally
Abd-soft, NT, ND
Ext-bilateral lower extremity edema
Musculoskeletal-no cyanosis, clubbing
Skin-warm and dry, bilateral lower extremity hyperpigmentation
Neuro-grossly non-focal
Psych-calm, cooperative
Acute hypoxic respiratory insufficiency -oxygenation improving, now on room air. Etiology is pulmonary edema related to heart failure exacerbation, as well as bronchitis.
Acute on chronic heart failure with preserved EF -suspect related to medication noncompliance. Being homeless is not helping his situation.
switch to PO lasix. Cardiology following. BNP 16,500. Weight is coming down.
JAYLAN on CKD 3A -creatinine improved. Then worsened again. Initial cardiorenal, now suspect overdiuresis. Will hold on Lasix, hold lisinopril.
Postinfectious bronchitis/cough -clinically improving. Continue prednisone, begin taper. Continue Acapella, Mucinex to 1200 mg twice daily. Patient states the cough is ongoing since his COVID infection on April 02, more than 7 weeks ago. I
explained to patient that unfortunately the cough can linger for several months. It is no longer an infectious cough. Sputum culture with usual respiratory alia.
Continue inhalers.
Troponin elevation -suspect acute nonischemic myocardial injury due to heart failure. Troponin was elevated previously as well.
Essential hypertension with hypertensive emergency -hypertensive emergency resolved. Continue meds.
Paroxysmal atrial fibrillation -treated with ablation in 2022. Not on anticoagulation by patient choice.
Bilateral lower extremity venous stasis dermatitis -continue compression therapy with David wraps. Add topical Lac-Hydrin. F/u vascular outpt
CAD -stable.
Gout
History of peptic ulcer disease
Morbid obesity due to excess calories
Full code
Anticipated Discharge: 24 - 48 hours
Subjective/Interval History
-
Date of Service: May 27, 2024
Rising creatinine, no acute events overnight
Objective Data
-
Labs:
Laboratory Results
05/27/24
05:10
WBC 10.6
Hgb 13.3
Hct 45.7
Plt Count 269
Sodium 139
Potassium 4.0
Chloride 92 L
Carbon Dioxide 34 H
BUN 64 H
Creatinine 1.6 H
Glucose 130 H
Calcium 9.1
Vital Signs:
Vital Signs
Temp Pulse Resp BP Pulse Ox
97.4 F 58 14 123/66 94
05/27/24 07:39 05/27/24 09:00 05/27/24 07:40 05/27/24 07:39 05/27/24 07:40
I&O
05/26/24 05/27/24 05/28/24
06:59 06:59 06:59
Intake Total 950 / 950 1440 / 1440
Output Total 1949 / 1949 3400 / 3400
Balance -1000 / -1000 -1959 /
Review of Systems
-
History Source: Patient
All other systems: Not reviewed unless documented
Physical Exam
-
General: No Apparent Distress
HEENT: Normocephalic
Respiratory: Clear to Auscultation
GI: Soft, Nontender and Nondistended
Musculoskeletal: No Clubbing, No Cyanosis and No Edema
Skin: Warm and Other (b/l LE venous stasis)
Neuro: Awake, Alert, Oriented and AO x 3
Psych: Calm
Data Reviewed
-
Total Time Spent with Patient (in minutes): 45
Diagnostic Radiology: Report Reviewed by me
Labs: Labs Reviewed by me
[2024-05-27 15:05] VITALS: BP 117/77
--- NOTE | 2024-05-27 16:09 | CM ---
Maintained on room air.Pox 95%.
Diuretics held today .
Cardiology involved and suggested cardiac clinic after dc.
He said he can not live with his sitter because she has a family.
PLAN Discharge to car and code blue correction prn
[2024-05-27] MEDS: COREG 12.5 MG PO (19:55)
[2024-05-27] MEDS: MELATONIN 5 MG PO (21:27)
[2024-05-27 23:00] VITALS: BP 115/85
[2024-05-28 05:55] LABS: Hematocrit 42.6 % (39.0-52.0); Hemoglobin 12.9 g/dL (13.0-18.0); Mean Corp Hgb Conc. 30.3 g/dL (33.0-37.0); Mean Corpuscular Hgb 22.8 pg (27.0-31.0); Mean Corpuscular Volume 75.1 fL (80.0-94.0); Mean Platelet Volume 8.7 fL (7.4-10.4); Platelet Count 247 10^3/uL (130-400); Red Blood Cell Count 5.67 10^6/uL (4.70-6.10); Red Cell Dist. Width 23.2 % (11.5-14.5)
[2024-05-28 06:00] VITALS: BMI 36.6
[2024-05-28 06:20] LABS: Blood Urea Nitrogen 58 mg/dl (9-20); Calcium 9.4 mg/dl (8.4-10.2); Carbon Dioxide 32 mmol/L (22-30); Chloride 97 mmol/L (98-107); Estimated Creatinine Clearance 63 ml/min; Glucose 141 mg/dl (70-99); Potassium 4.1 mmol/L (3.5-5.1); Sodium 138 mmol/L (135-145); eGFR 58.62
[2024-05-28 07:05] VITALS: BP 143/93
[2024-05-28] MEDS: FLOVENT 44 MCG INHALER 2 PUFF INH ×2 (07:38→19:36)
[2024-05-28] MEDS: MUCINEX 1200 MG PO ×2 (08:43→20:53)
[2024-05-28] MEDS: COREG 12.5 MG PO ×2 (08:43→20:52)
[2024-05-28] MEDS: DELTASONE 30 MG PO (08:43)
[2024-05-28] MEDS: ANESTHETIC LOZENGE 1 LOZENGE PO ×2 (08:43→20:52)
[2024-05-28] MEDS: TESSALON PERLES 200 MG PO ×3 (08:44→20:53)
[2024-05-28] MEDS: LAC HYDRIN, AM LACTIN LOTION 1 APPLIC TOPICAL ×2 (08:44→20:52)
--- NOTE | 2024-05-28 10:20 | W.PN.CD ---
Today's Communication / Plan
-
transition to torsemide 20mg daily, and trend Cr
Impression / Plan
-
58 y/o male with hx HFimpEF (was 35-40%, more recently 55-60%), NICM, moderate MR, CKD (looks like 3A range typically), AFIB s/p ablation (not on OAC due to patient declining it), hypertension, non-obstructive CAD, obesity, DM (not on medicines).
We are consulted for HF. His living situation is difficult and likely dietary indiscretions are what lead to HF exacerbations. He has also recently been treated for bronchitis with azithromycin and prednisone.
Acute on chronic HFimpEF
- Meds limited as detailed (lack of f/u makes MRA unsafe, declines SGLT-I)
-he reports he can only take diuretic once daily at home due to frequent urination
- JAYLAN with IV diuresis: stopped
-will call 99-100kg his dry weight
-transition to torsemide 20mg daily, and trend Cr
JAYLAN: improving
-Hold potassium
-Hold lisinopril
HTN: better
-cont coreg 12.5mg bid
-lisinopril on hold due to JAYLAN
Edema
-likely combination of lymphedema and HF
Parox AFib, s/p ablation, in sinus, declines anticoagulation
CKD 3A, improved with diuresis
Data:
-ECHO 04/03/24: EF 55-60% Possible basal inferior hypokinesis. Stage III diastolic dysfunction. Dilated right ventricle. Low normal right ventricular systolic function. Severely dilated left atrium. Dilated right atrium. Moderate mitral regurgitation.
Pulmonary artery pressure of 45-50 mmHg. Compared to previous echo on 08/31/2022 ([facility]), the LVEF has improved previously (35-40%). The previous reported degree of mitral regurgitation appears to have improved (previously severe).
Physical Exam
Vital Signs/Labs
Vital Signs
Temp Pulse Resp BP Pulse Ox
97.3 F 70 16 143/93 94
05/28/24 07:05 05/28/24 07:41 05/28/24 07:41 05/28/24 07:05 05/28/24 07:41
05/27/24 05/28/24 05/29/24
06:59 06:59 06:59
Actual Weight 99.45 kg 99.79 kg
05/28/24 05:07
05/28/24 05:07
PT 17.0 Sec (11.4-14.6) H 05/20/24 07:45
INR 1.35 05/20/24 07:45
APTT 32.4 Sec (23.4-35.0) 05/20/24 07:45
Magnesium 1.9 mg/dl (1.6-2.3) 05/21/24 05:13
05/20/24
07:45
Oiv-Y-Kuhollcrpos Pept [id number]
Physical Exam
Constitutional: No acute distress and Comfortable
EENT: Moist mucous membranes
Cardiovascular: Rhythm & rate is regular, JVD pressure is normal, Pedal edema present and Systolic murmur present
Respiratory: Respiratory effort normal and Lungs clear to auscul.
Neuro/Psych: AO x 3
Data Reviewed
-
Date of Service: May 28, 2024
EKG: Other
Labs: Labs Reviewed by me
[2024-05-28] MEDS: DEMADEX 20 MG PO (10:53)
--- NOTE | 2024-05-28 13:43 | W.PN.HOSP.TC ---
Today's Communication/Plan
-
start torsemide
Assessment / Plan
Assessment / Plan
Gen-AAOx3, NAD
HEENT-NC, AT, anicteric, clear oral mm
Neck-supple
CV-reg, no M, +S1/S2
Lungs-mostly clear bilaterally
Abd-soft, NT, ND
Ext-bilateral lower extremity edema
Musculoskeletal-no cyanosis, clubbing
Skin-warm and dry, bilateral lower extremity hyperpigmentation
Neuro-grossly non-focal
Psych-calm, cooperative
Acute hypoxic respiratory insufficiency -oxygenation improving, now on room air. Etiology is pulmonary edema related to heart failure exacerbation, as well as bronchitis.
Acute on chronic heart failure with preserved EF -suspect related to medication noncompliance. Being homeless is not helping his situation.
. Cardiology following. BNP 16,500. Weight is coming down. trial torsemide - monitor renal function
JAYLAN on CKD 3A -creatinine improved. Then worsened again. Initial cardiorenal, now suspect overdiuresis. improving - trial torsemide.
Postinfectious bronchitis/cough -clinically improving. Continue prednisone, begin taper. Continue Acapella, Mucinex to 1200 mg twice daily. Patient states the cough is ongoing since his COVID infection on April 02, more than 7 weeks ago. I
explained to patient that unfortunately the cough can linger for several months. It is no longer an infectious cough. Sputum culture with usual respiratory alia.
Continue inhalers.
Troponin elevation -suspect acute nonischemic myocardial injury due to heart failure. Troponin was elevated previously as well.
Essential hypertension with hypertensive emergency -hypertensive emergency resolved. Continue meds.
Paroxysmal atrial fibrillation -treated with ablation in 2022. Not on anticoagulation by patient choice.
Bilateral lower extremity venous stasis dermatitis -continue compression therapy with David wraps. Add topical Lac-Hydrin. F/u vascular outpt
CAD -stable.
Gout
History of peptic ulcer disease
Morbid obesity due to excess calories
Full code
Anticipated Discharge: 24 - 48 hours
Subjective/Interval History
-
Date of Service: May 28, 2024
no acute events
Objective Data
-
Labs:
Laboratory Results
05/28/24
05:07
WBC 10.0
Hgb 12.9 L
Hct 42.6
Plt Count 247
Sodium 138
Potassium 4.1
Chloride 97 L
Carbon Dioxide 32 H
BUN 58 H
Creatinine 1.4 H
Glucose 141 H
Calcium 9.4
Vital Signs:
Vital Signs
Temp Pulse Resp BP Pulse Ox
97.3 F 70 16 143/93 94
05/28/24 07:05 05/28/24 07:41 05/28/24 07:41 05/28/24 07:05 05/28/24 07:41
I&O
05/27/24 05/28/24 05/29/24
06:59 06:59 06:59
Intake Total 1440 / 1440 1620 / 1620
Output Total 3400 / 3400 2450 / 2450
Balance -1960 / -1960 -830 / -830
Review of Systems
-
History Source: Patient
All other systems: Not reviewed unless documented
Physical Exam
-
General: No Apparent Distress
HEENT: Normocephalic
Respiratory: Clear to Auscultation
GI: Soft, Nontender and Nondistended
Musculoskeletal: No Clubbing, No Cyanosis and No Edema
Skin: Warm and Other (b/l LE venous stasis)
Neuro: Awake, Alert, Oriented and AO x 3
Psych: Calm
Data Reviewed
-
Total Time Spent with Patient (in minutes): 45
Diagnostic Radiology: Report Reviewed by me
Labs: Labs Reviewed by me
[2024-05-28 15:05] VITALS: BP 155/99
--- NOTE | 2024-05-28 15:21 | CM ---
Patient seen at bedside. patient stated Nisa [phone]; at [facility] wanted him to go to a cardiac rehab. Patient does not have PT/OT assessment. CM sent tt to physician to request assessments. CM will continue to follow for discharge
planning needs.
Plan; [facility] vs pt/ot assessment for snf
[2024-05-28] MEDS: MELATONIN 5 MG PO (20:53)
[2024-05-28 23:00] VITALS: BP 121/70
[2024-05-29 06:00] VITALS: BMI 36.4
[2024-05-29 06:46] LABS: Hematocrit 42.8 % (39.0-52.0); Hemoglobin 12.7 g/dL (13.0-18.0); Mean Corp Hgb Conc. 29.7 g/dL (33.0-37.0); Mean Corpuscular Hgb 22.4 pg (27.0-31.0); Mean Corpuscular Volume 75.5 fL (80.0-94.0); Mean Platelet Volume 9.2 fL (7.4-10.4); Platelet Count 242 10^3/uL (130-400); Red Blood Cell Count 5.67 10^6/uL (4.70-6.10); Red Cell Dist. Width 23.3 % (11.5-14.5)
[2024-05-29 07:14] LABS: Blood Urea Nitrogen 58 mg/dl (9-20); Calcium 9.5 mg/dl (8.4-10.2); Carbon Dioxide 28 mmol/L (22-30); Chloride 96 mmol/L (98-107); Estimated Creatinine Clearance 63 ml/min; Glucose 129 mg/dl (70-99); Potassium 3.8 mmol/L (3.5-5.1); Sodium 137 mmol/L (135-145); eGFR 58.62
[2024-05-29] MEDS: FLOVENT 44 MCG INHALER 2 PUFF INH (07:43)
[2024-05-29 07:47] VITALS: BP 136/93
[2024-05-29] MEDS: DEMADEX 20 MG PO (08:23)
[2024-05-29] MEDS: COREG 12.5 MG PO (08:24)
[2024-05-29] MEDS: DELTASONE 30 MG PO (08:24)
[2024-05-29] MEDS: LAC HYDRIN, AM LACTIN LOTION 1 APPLIC TOPICAL (08:24)
[2024-05-29] MEDS: TESSALON PERLES 200 MG PO (08:24)
[2024-05-29] MEDS: MUCINEX 1200 MG PO (08:24)
--- NOTE | 2024-05-29 09:22 | W.PN.CD ---
Today's Communication / Plan
-
stable on torsemide 20mg daily
discharge planning
BMP next week
please call us with additional questions
Impression / Plan
-
58 y/o male with hx HFimpEF (was 35-40%, more recently 55-60%), NICM, moderate MR, CKD (looks like 3A range typically), AFIB s/p ablation (not on OAC due to patient declining it), hypertension, non-obstructive CAD, obesity, DM (not on medicines).
We are consulted for HF. His living situation is difficult and likely dietary indiscretions are what lead to HF exacerbations. He has also recently been treated for bronchitis with azithromycin and prednisone.
Acute on chronic HFimpEF
- Meds limited as detailed (lack of f/u makes MRA unsafe, declines SGLT-I)
-he reports he can only take diuretic once daily at home due to frequent urination
-will call 99-100kg his dry weight
-continue torsemide 20mg daily
JAYLAN: improved
HTN: better
-cont coreg 12.5mg bid
-lisinopril 5mg daily resumed
Edema
-likely combination of lymphedema and HF
Parox AFib, s/p ablation, in sinus, declines anticoagulation
CKD 3A, improved with diuresis
Data:
-ECHO 04/03/24: EF 55-60% Possible basal inferior hypokinesis. Stage III diastolic dysfunction. Dilated right ventricle. Low normal right ventricular systolic function. Severely dilated left atrium. Dilated right atrium. Moderate mitral regurgitation.
Pulmonary artery pressure of 45-50 mmHg. Compared to previous echo on 08/31/2022 ([facility]), the LVEF has improved previously (35-40%). The previous reported degree of mitral regurgitation appears to have improved (previously severe).
Physical Exam
Vital Signs/Labs
Vital Signs
Temp Pulse Resp BP Pulse Ox
97.6 F 62 16 136/93 98
05/29/24 07:47 05/29/24 08:23 05/29/24 07:47 05/29/24 08:23 05/29/24 07:47
05/28/24 05/29/24 05/30/24
06:59 06:59 06:59
Actual Weight 99.79 kg 99.246 kg
05/29/24 05:11
05/29/24 05:11
PT 17.0 Sec (11.4-14.6) H 05/20/24 07:45
INR 1.35 05/20/24 07:45
APTT 32.4 Sec (23.4-35.0) 05/20/24 07:45
Magnesium 1.9 mg/dl (1.6-2.3) 05/21/24 05:13
05/20/24
07:45
Fvm-[id number]-Fwozzwevzcr Pept [id number]
Physical Exam
Constitutional: No acute distress and Comfortable
EENT: Moist mucous membranes
Cardiovascular: Rhythm & rate is regular, Systolic murmur absent, Pedal edema present and JVD present
Respiratory: Respiratory effort normal and Lungs clear to auscul.
Neuro/Psych: AO x 3
Data Reviewed
-
Date of Service: May 29, 2024
Labs: Labs Reviewed by me
--- NOTE | 2024-05-29 12:24 | CM ---
Addendum entered by Dee Roldan 05/29/24 13:37:
Patient given [facility] phone number for cardiac rehab.
[facility] clinic stated to patient he has insurance and cannot assist
Patient states he will follow up with cardiac rehab that will accept his [facility]
Addendum entered by Dee Roldan 05/29/24 13:18:
girlfriend to transport
Original Note:
Patient seen at bedside.
Confirmed PCP Sandra Gonzalez,
tt from hospitalist regarding oupatient cardiac rehab
Called Carmella at [facility]-states do not accept insurance, possibly [facility] may be able to assist
Patient given resources for [facility]
Left message with clinic
PLAN: Discharge to car and [facility] pr[facility]
--- NOTE | 2024-05-29 13:24 | W.PN.HOSP.TC ---
Addendum entered and electronically signed by Amarjit Cruz MD 05/30/24 18:18:
[id number]
Original Note:
Today's Communication/Plan
-
coreg
torsemide
lisinopril
bmp in 1 week
f/u pcp, cards outpt
Assessment / Plan
Assessment / Plan
Gen-AAOx3, NAD
HEENT-NC, AT, anicteric, clear oral mm
Neck-supple
CV-reg, no M, +S1/S2
Lungs-mostly clear bilaterally
Abd-soft, NT, ND
Ext-bilateral lower extremity edema
Musculoskeletal-no cyanosis, clubbing
Skin-warm and dry, bilateral lower extremity hyperpigmentation
Neuro-grossly non-focal
Psych-calm, cooperative
Acute hypoxic respiratory insufficiency -oxygenation improving, now on room air. Etiology is pulmonary edema related to heart failure exacerbation, as well as bronchitis.
Acute on chronic heart failure with preserved EF -suspect related to medication noncompliance. Being homeless is not helping his situation.
. Cardiology following. BNP 16,500. Weight is coming down. trial torsemide - monitor renal function; stable on torsemide 20 mg daily. BMP next week. Continue Coreg. Cardiac Rehab outpt
JAYLAN on CKD 3A -creatinine improved. Then worsened again. Initial cardiorenal, now suspect overdiuresis. improving - trial torsemide.
Postinfectious bronchitis/cough -clinically improving. Continue prednisone, begin taper. Continue Acapella, Mucinex to 1200 mg twice daily. Patient states the cough is ongoing since his COVID infection on April 02, more than 7 weeks ago. I
explained to patient that unfortunately the cough can linger for several months. It is no longer an infectious cough. Sputum culture with usual respiratory alia.
Continue inhalers.
Troponin elevation -suspect acute nonischemic myocardial injury due to heart failure. Troponin was elevated previously as well.
Essential hypertension with hypertensive emergency -hypertensive emergency resolved. Continue meds.
Paroxysmal atrial fibrillation -treated with ablation in 2022. Not on anticoagulation by patient choice.
Bilateral lower extremity venous stasis dermatitis -continue compression therapy with David wraps. Add topical Lac-Hydrin. F/u vascular outpt
CAD -stable.
Gout
History of peptic ulcer disease
Morbid obesity due to excess calories
Full code
More than 30 minutes spent in discharge including
Final examination of the patient
Summarizing hospital stay
Instructions for continuing care to all relevant caregivers
Preparation of discharge records, prescriptions, and referral forms
Total time spent (36 in minutes):
Anticipated Discharge: Today
Subjective/Interval History
-
Date of Service: May 29, 2024
No acute events overnight
Objective Data
-
Labs:
Laboratory Results
05/29/24
05:11
WBC 10.0
Hgb 12.7 L
Hct 42.8
Plt Count 242
Sodium 137
Potassium 3.8
Chloride 96 L
Carbon Dioxide 28
BUN 58 H
Creatinine 1.4 H
Glucose 129 H
Calcium 9.5
Vital Signs:
Vital Signs
Temp Pulse Resp BP Pulse Ox
97.6 F 62 16 136/93 98
05/29/24 07:47 05/29/24 08:23 05/29/24 07:47 05/29/24 08:23 05/29/24 07:47
I&O
05/28/24 05/29/24 05/30/24
06:59 06:59 06:59
Intake Total 1620 / 1620 1919 / 1919
Output Total 2450 / 2450 2149 / 2149
Balance -830 / -830 -230 / -230
Review of Systems
-
History Source: Patient
All other systems: Not reviewed unless documented
Physical Exam
-
General: No Apparent Distress
HEENT: Normocephalic
Respiratory: Clear to Auscultation
GI: Soft, Nontender and Nondistended
Musculoskeletal: No Clubbing, No Cyanosis and No Edema
Skin: Warm and Other (b/l LE venous stasis)
Neuro: Awake, Alert, Oriented and AO x 3
Psych: Calm
Data Reviewed
-
Total Time Spent with Patient (in minutes): 45
Diagnostic Radiology: Report Reviewed by me
Labs: Labs Reviewed by me
--- NOTE | 2024-05-29 13:26 | W.DS.TRANS ---
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
-
Discharge Instructions:
Sleep Apnea Risk High
Discharge Diagnosis/Procedures Acute on chronic HFimpEF
JAYLAN
Diet 2 Gram Sodium,Restrict fluids to 48 oz
Activity As tolerated
Driving Restrictions As prior to admission
Bathing Restrictions None
Blood Work bmp in 1 week with pcp/cardiology
Specialty Instructions Weigh Daily
Instructions: *PCP/Other Director Trade Heart Failure Instructions
Stand-Alone Forms:
Changes to Home Medications: Yes
Discharge Medications:
DC Medications w/original date entered in [employer]
lisinopril 5 mg tablet 5 mg PO DAILY blood pressure 05/20/24
ammonium lactate 12 % lotion 1 applic topical BID 30 days #400 grams 05/29/24
carvedilol 12.5 mg tablet 12.5 mg PO BID 30 days #60 tabs 05/29/24
prednisone 10 mg tablet See Rx Instructions .Route .COMPLEX #30 tabs 05/29/24
torsemide 20 mg tablet 20 mg PO DAILY 30 days #30 tabs 05/29/24
Home Medication Changes
carvedilol 12.5 mg tablet 12.5 mg PO BID 30 days #60 tabs 05/29/24
prednisone 10 mg tablet See Rx Instructions .Route .COMPLEX #30 tabs 05/29/24
torsemide 20 mg tablet 20 mg PO DAILY 30 days #30 tabs 05/29/24
Pending Results: No
[2024-05-29 13:50] VITALS: BP 134/92
--- NOTE | 2024-05-30 14:57 | W.HF.CON ---
Heart Failure
- LV Function
Left ventricular function study result: LV Ejection fraction >/= 50%
Ejection Fraction Percentage: 55-60
- ARNI
Patient already on ARNI: No
Heart Failure ARNI Not Indicated: LV Ejection Fraction >/= 40%
- ACEI/ARB
Patient already on ACEI/ARB: Yes
- Beta Lesly
Patient already on Evidence Based Beta Lesly: Yes
- Mineralocorticord Receptor Antagonist
Patient already on MRA: No
Heart Failure MRA Contraindication: Potentially Non-compliant
- SGLT-2 Inhibitor
Patient already on SGLT-2 Inhibitor: No
Heart Failure SGLT-2 Inhibitor Contraindication: Patient Refusal
- Afib Anticoagulation
Patient already on Anticoagulation for Afib: No
Heart Failure Afib Anticoagulation Contraindication: Patient Refusal
- NYHA CHF Classification
NYHA CHF Classification Level: Class III - Symptoms w/ min exertion, interferes w/ nml daily activity
- ACC/AHA Stage
ACC/AHA Stage: Stage C: Symptomatic Heart Failure
== END 2024-05-29 13:54 | disposition home or self-care (01) | DRG 291 ==
LOC: 3 WEST ACU 11:12
PROVIDERS: ADMITTING PHYSICIAN Hospitalist; ATTENDING PHYSICIAN Internal Medicine; CONSULT PHYSICIAN Internal Medicine Cardiovascular Disease; EMERGENCY PHYSICIAN Emergency Medicine
DX: I13.0 Hypertensive heart and chronic kidney disease with heart failure and stage 1 through stage 4 chronic kidney disease, or unspecified chronic kidney disease (principal); I50.33 Acute on chronic diastolic (congestive) heart failure; I16.1 Hypertensive emergency; I48.19 Other persistent atrial fibrillation; N17.9 Acute kidney failure, unspecified; I47.20 Ventricular tachycardia, unspecified; Z59.00 Homelessness unspecified; I5A Non-ischemic myocardial injury (non-traumatic); I42.8 Other cardiomyopathies; E66.01 Morbid (severe) obesity due to excess calories; F17.200 Nicotine dependence, unspecified, uncomplicated; N18.31 Chronic kidney disease, stage 3a; E11.22 Type 2 diabetes mellitus with diabetic chronic kidney disease; I25.10 Atherosclerotic heart disease of native coronary artery without angina pectoris; M10.9 Gout, unspecified; I34.0 Nonrheumatic mitral (valve) insufficiency; J20.9 Acute bronchitis, unspecified; R09.02 Hypoxemia; R06.89 Other abnormalities of breathing; Z68.36 Body mass index [BMI] 36.0-36.9, adult; Z91.148 Patient's other noncompliance with medication regimen for other reason; Z11.52 Encounter for screening for COVID-19; Z86.16 Personal history of COVID-19; Z79.899 Other long term (current) drug therapy; Z87.898 Personal history of other specified conditions; Z87.11 Personal history of peptic ulcer disease
CPT/HCPCS: 71046; 80048; 80053; 83605; 83735; 83880; 84484; 85025; 85027; 85610; 85730; 87070; 87205; 87502; 87811; 93005; 94640; 96374; 99285; 99406

== ENCOUNTER 2025-03-16 06:34 | Inpatient (IN) | payer OTHER, SELFPAY ==
[2025-03-16] VITALS (10 sets, daily range): BP systolic 112–176; BP diastolic 80–139
[2025-03-16 04:57] LABS: Hematocrit 42.4 % (39.0-52.0); Hemoglobin 13.7 g/dL (13.0-18.0); Mean Corp Hgb Conc. 32.3 g/dL (33.0-37.0); Mean Corpuscular Volume 85.7 fL (80.0-94.0); Nucleated Red Blood Cells % 0 % (-); Platelet Count 245 10^3/uL (130-400); Red Cell Dist. Width 16.2 % (11.5-14.5)
[2025-03-16 05:13] LABS: COVID-19 Antigen Negative (Negative)
[2025-03-16 05:15] LABS: ALT (SGPT) 23 U/L (0-50); AST (SGOT) 25 U/L (17-59); Albumin 4.3 g/dl (3.5-5.0); Alkaline Phosphatase 32 U/L (38-126); Blood Urea Nitrogen 38 mg/dl (9-20); Calcium 9.2 mg/dl (8.4-10.2); Carbon Dioxide 26 mmol/L (22-30); Chloride 105 mmol/L (98-107); Glucose 129 mg/dl (70-99); Potassium 3.8 mmol/L (3.5-5.1); Sodium 141 mmol/L (135-145); Total Protein 7.4 g/dl (6.3-8.2); eGFR 40.38
--- NOTE | 2025-03-16 05:16 | ED.GENMED ---
History of Present Illness
<Hiwot Aragon PA-C - Last Filed: 03/16/25 07:31>
General
Chief Complaint: Swelling
Source: patient
Exam Limitations: none
Time Seen by Provider: 03/16/25 04:06
Nursing documentation reviewed up to this point in time: agreed with
History of Present Illness
History of Present Illness:
59-year-old male with past medical history of CHF, hypertension, diabetes, chronic lower extremity edema, CAD, presents to ER today with concerns of bilateral lower extremity edema worsening and shortness of breath. He reports that this started he
will days ago and he states he feels like he is an exacerbation of his heart failure. He is also dry cough. He denies any fevers or chills. He denies any coughing up of sputum or blood. He denies any fever. Denies any abdominal pain or nausea.
He denies any vomiting. He follows with multiple drugless physician and he reports that he just saw his previous drugless physician a month ago and was cleared for 6 months. Patient denies any chest pain at this time. Patient denies any pain in his lower
extremities.
Past History
<Hiwot Aragon PA-C - Last Filed: 03/16/25 07:31>
Past History
ED Past Medical History: CAD, CHF, HTN, Other (Gout) and Other (Perforated gastric ulcer 2014)
ED Past Surgical History: Urological and Other (laparotomy, repair of perforated gastric ulcer 2014)
Social History
Tobacco: Non-smoker
Alcohol: Occasional
Drug: None
Personal: Single
Employment: Employed
Review of Systems
<Hiwot Aragon PA-C - Last Filed: 03/16/25 07:31>
Review of Systems
All Other Systems: ROS reviewed and negative except as documented in HPI and ROS
Phy Exam
<Hiwot Aragon PA-C - Last Filed: 03/16/25 07:31>
Physical Exam
Physical Exam:
General: Patient is well appearing and in no acute distress; non-toxic
Skin: Warm and dry, no rashes or lesions
Head: Normocephalic, atraumatic
Eyes: Sclera non-icteric. EOMs intact.
Cardiac: Regular rate and rhythm, no murmurs
Peripheral Vascular: Bilateral lower extremity pitting edema with brawny discoloration and weeping wounds, no purulent drainage, no tenderness to palpation, 2+ DP pulses b/l
Pulm: Tachypnea noted, no crackles noted on lung exam
Abdomen: No abdominal tenderness to palpation
Neuro: CN II-XII intact, no focal neurologic deficits.
Psychiatric: Appropriate mood and affect.
Scores
<Hiwot Aragon PA-C - Last Filed: 03/16/25 07:31>
Heart Failure Risk
Heart Failure Risk Score: Not Applicable
Course
<Hiwot Aragon PA-C - Last Filed: 03/16/25 07:31>
Orders/Labs/Results
Orders:
Orders
03/16/25 04:07
Electrocardiogram (*1) Urgent
Reason for Study: Chest Pain
EKG- Treatment ONCE
03/16/25 04:35
Complete Blood Count/With Diff Urgent
Comprehensive Metabolic Panel Urgent
NT-proBNP Urgent
Troponin I Urgent
03/16/25 04:42
CR Chest - 2 Views Urgent
Comment:
Reason For Exam: shortness of breath
03/16/25 04:47
COVID-19 Antigen Urgent
Source: Nasal Swab
Influenza A+B Rapid Molecular Urgent
RUPERTO Source: Nasal Swab
Specimen Description:
03/16/25 05:39
Furosemide [Lasix] 40 mg IV NOW STA
Nitroglycerin Ointment [Nitro-Bid] 1 inch TOPICAL NOW STA
03/16/25 Breakfast
Regular
Fluid Restriction: 1440 mL/day (48 oz)
03/16/25 06:17
Admit/Transfer Patient As Directed
Co-Sign Provider:
Level of Care: Inpatient admission
Assign to:: Telemetry
Physician / Group: Abraham
Diagnosis: CHF
Reason for Telemetry: Acute Heart Failure
Date to Stop Telemetry: 03/19/25
Time to Stop Telemetry: 11:00
Reason for Hospitalization: CHF
Expected length of stay greater than two midnights?: Yes
ELOS- Estimated Length of Stay in days: 3
I certify the patient meets the requirements for IP care: Yes
PRN Pain Medication Management As Directed
May give lesser potent ordered pain med per pt: Yes
preference::
Protocol:: Medication orders for pain may be administered in a
manner that supports deferring to patient preference
when the pt is:
- Requesting an ordered lesser potent pain medication.
Least to most potent pain medications are defined
as: acetaminophen < NSAID < tramadol < opioids
(morphine, oxycodone, hydromorphone).
- Requesting a lesser dose of the same medication IF
ORDERED.
- Requesting a less intrusive route of administration
if both routes are prescribed by the provider (PO <
IV).
03/16/25 06:18
Code Status As Directed
Resuscitation Status: Full Code
03/16/25 07:22
Troponin I Q6H
Acetaminophen [Tylenol] 650 mg PO Q4HPRN PRN
Albuterol Nebs [Ventolin Nebules] 2.5 mg INH R Q4HPRN PRN
Nitroglycerin Sublingual [Nitrostat (Sublingual)] 0.4 mg SL [id number] PRN
03/16/25 07:22
Echo 2D MMode Doppler [Echo 2D MMode Color/Doppler] Routine
Reason for Study: CHF
CARDIOLOGY CONSULT Routine
Consulting Provider: Ankit Lima
Was physician already notified: No
Reason for consult: CHF
Consult Notification Routine
Specialty to Notify: Cardiology
WOUND/OSTOMY CONSULT Routine
Reason for Consult: b/l LE wounds
Glycohemoglobin (HgbA1c) Routine
TSH Reflex To Free T4 Routine
Activity As Directed
Activity Level: Ambulate
With Assistance
Bladder Scan As Directed
Follow Bladder Retention/Intermittent Cath Algorithm?: Yes
PRN if no void in __ hours: 6
Frequency: Per Retention Algorithm
If Bladder Scan Result >: 400
then:: Straight cath
EKG with chest pain [ECG as needed] As Directed
ECG as needed for:: Chest Pain
I/O [Intake/ Output] As Directed
Frequency: Per unit guidelines
Straight Cath As Directed
Frequency: Per Retention Algorithm
Additional Instructions: straight cath as needed per acute urinary retention algorithm for 24 hrs
Additional Instructions: for bladder scan greater than 400 mL
Vital Signs As Directed
Frequency: Per unit guidelines
Weight As Directed
Frequency: Daily
Oxygen Therapy [O2 Therapy] [RESP] Routine
Titrate/Wean O2 to maintain O2 sat greater than (%): 94
DX Deep Vein Thrombosis Video Routine
03/16/25 08:00
Aspirin Chewable [Low Strength Aspirin] 81 mg PO DAILY
Carvedilol [Coreg] 12.5 mg PO BID
Furosemide [Lasix] 40 mg IV BID AT 0800,1600
03/16/25 13:22
Troponin I Q6H
03/16/25 18:00
Enoxaparin Sodium [Lovenox] 40 mg SC QPM
03/16/25 19:22
Troponin I Q6H
03/17/25 06:00
Basic Metabolic Panel IN AM
Cardiovascular Evaluation IN AM
Complete Blood Count/No Diff IN AM
03/19/25 11:00
DC Protocol for Telemetry ONCE
Abnormal Lab Results
03/16/25
04:35
MCHC 32.3 L g/dL
(33.0-37.0)
RDW 16.2 H %
(11.5-14.5)
Absolute Monos (auto) 0.8 H 10^3/uL
(0.1-0.6)
Lymphocytes % 18.9 L %
(20.5-51.1)
Monocytes % 10.6 H %
(1.7-9.3)
BUN 38 H mg/dl
(9-20)
Creatinine 1.9 H mg/dL
(0.7-1.3)
Glucose 129 H mg/dl
(70-99)
Total Bilirubin 1.9 H mg/dl
(0.2-1.3)
Alkaline Phosphatase 32 L U/L
(38-126)
Troponin I 0.062 H* ng/ml
03/16/25 04:35
03/16/25 04:35
Vital Signs
Initial and Last Documented VS:
Initial Vital Signs
Pulse Resp Pulse Ox
93 24 95
03/16/25 04:23 03/16/25 04:23 03/16/25 04:23
Last Documented Vital Signs
Temp Pulse Resp BP Pulse Ox
97.6 F 89 20 153/103 96
03/16/25 07:26 03/16/25 07:26 03/16/25 07:26 03/16/25 07:26 03/16/25 07:26
<Patel Sarkar, DO - Last Filed: 03/16/25 06:48>
Orders/Labs/Results
Orders:
Orders
03/16/25 04:07
Electrocardiogram (*1) Urgent
Reason for Study: Chest Pain
EKG- Treatment ONCE
03/16/25 04:35
Complete Blood Count/With Diff Urgent
Comprehensive Metabolic Panel Urgent
NT-proBNP Urgent
Troponin I Urgent
03/16/25 04:42
CR Chest - 2 Views Urgent
Comment:
Reason For Exam: shortness of breath
03/16/25 04:47
COVID-19 Antigen Urgent
Source: Nasal Swab
Influenza A+B Rapid Molecular Urgent
RUPERTO Source: Nasal Swab
Specimen Description:
03/16/25 05:39
Furosemide [Lasix] 40 mg IV NOW STA
Nitroglycerin Ointment [Nitro-Bid] 1 inch TOPICAL NOW STA
03/16/25 Breakfast
Regular
Fluid Restriction: 1440 mL/day (48 oz)
03/16/25 06:17
Admit/Transfer Patient As Directed
Co-Sign Provider:
Level of Care: Inpatient admission
Assign to:: Telemetry
Physician / Group: Abraham
Diagnosis: CHF
Reason for Telemetry: Acute Heart Failure
Date to Stop Telemetry: 03/19/25
Time to Stop Telemetry: 11:00
Reason for Hospitalization: CHF
Expected length of stay greater than two midnights?: Yes
ELOS- Estimated Length of Stay in days: 3
I certify the patient meets the requirements for IP care: Yes
PRN Pain Medication Management As Directed
May give lesser potent ordered pain med per pt: Yes
preference::
Protocol:: Medication orders for pain may be administered in a
manner that supports deferring to patient preference
when the pt is:
- Requesting an ordered lesser potent pain medication.
Least to most potent pain medications are defined
as: acetaminophen < NSAID < tramadol < opioids
(morphine, oxycodone, hydromorphone).
- Requesting a lesser dose of the same medication IF
ORDERED.
- Requesting a less intrusive route of administration
if both routes are prescribed by the provider (PO <
IV).
03/16/25 06:18
Code Status As Directed
Resuscitation Status: Full Code
03/16/25 07:22
Troponin I Q6H
Acetaminophen [Tylenol] 650 mg PO Q4HPRN PRN
Albuterol Nebs [Ventolin Nebules] 2.5 mg INH R Q4HPRN PRN
Nitroglycerin Sublingual [Nitrostat (Sublingual)] 0.4 mg SL [id number] PRN
03/16/25 07:22
Echo 2D MMode Doppler [Echo 2D MMode Color/Doppler] Routine
Reason for Study: CHF
CARDIOLOGY CONSULT Routine
Consulting Provider: Ankit Lima
Was physician already notified: No
Reason for consult: CHF
Consult Notification Routine
Specialty to Notify: Cardiology
WOUND/OSTOMY CONSULT Routine
Reason for Consult: b/l LE wounds
Glycohemoglobin (HgbA1c) Routine
TSH Reflex To Free T4 Routine
Activity As Directed
Activity Level: Ambulate
With Assistance
Bladder Scan As Directed
Follow Bladder Retention/Intermittent Cath Algorithm?: Yes
PRN if no void in __ hours: 6
Frequency: Per Retention Algorithm
If Bladder Scan Result >: 400
then:: Straight cath
EKG with chest pain [ECG as needed] As Directed
ECG as needed for:: Chest Pain
I/O [Intake/ Output] As Directed
Frequency: Per unit guidelines
Straight Cath As Directed
Frequency: Per Retention Algorithm
Additional Instructions: straight cath as needed per acute urinary retention algorithm for 24 hrs
Additional Instructions: for bladder scan greater than 400 mL
Vital Signs As Directed
Frequency: Per unit guidelines
Weight As Directed
Frequency: Daily
Oxygen Therapy [O2 Therapy] [RESP] Routine
Titrate/Wean O2 to maintain O2 sat greater than (%): 94
DX Deep Vein Thrombosis Video Routine
03/16/25 08:00
Aspirin Chewable [Low Strength Aspirin] 81 mg PO DAILY
Carvedilol [Coreg] 12.5 mg PO BID
Furosemide [Lasix] 40 mg IV BID AT 0800,1600
03/16/25 13:22
Troponin I Q6H
03/16/25 18:00
Enoxaparin Sodium [Lovenox] 40 mg SC QPM
03/16/25 19:22
Troponin I Q6H
03/17/25 06:00
Basic Metabolic Panel IN AM
Cardiovascular Evaluation IN AM
Complete Blood Count/No Diff IN AM
03/19/25 11:00
DC Protocol for Telemetry ONCE
Abnormal Lab Results
03/16/25
04:35
MCHC 32.3 L g/dL
(33.0-37.0)
RDW 16.2 H %
(11.5-14.5)
Absolute Monos (auto) 0.8 H 10^3/uL
(0.1-0.6)
Lymphocytes % 18.9 L %
(20.5-51.1)
Monocytes % 10.6 H %
(1.7-9.3)
BUN 38 H mg/dl
(9-20)
Creatinine 1.9 H mg/dL
(0.7-1.3)
Glucose 129 H mg/dl
(70-99)
Total Bilirubin 1.9 H mg/dl
(0.2-1.3)
Alkaline Phosphatase 32 L U/L
(38-126)
Troponin I 0.062 H* ng/ml
03/16/25 04:35
03/16/25 04:35
Vital Signs
Initial and Last Documented VS:
Initial Vital Signs
Pulse Resp Pulse Ox
93 24 95
03/16/25 04:23 03/16/25 04:23 03/16/25 04:23
Last Documented Vital Signs
Temp Pulse Resp BP Pulse Ox
97.6 F 89 20 153/103 96
03/16/25 07:26 03/16/25 07:26 03/16/25 07:26 03/16/25 07:26 03/16/25 07:26
<Hiwot Aragon PA-C - Last Filed: 03/16/25 07:31>
MDM/Problems Addressed
Differential Diagnosis Includes:
CHF, ACS, pneumothorax, pneumonia
MDM/Problems Addressed:
59-year-old male presents to ER today with concerns of shortness of breath. He is also noticing increased worsening of his chronic bilateral lower extremity edema. He does have a history of heart failure. Physical exam well-appearing no acute
distress he does have some mild tachypnea however cardiac sounds. He is not hypoxic. Labs reviewed, no leukocytosis noted. Does have a acute kidney injury as well as elevated proBNP and troponin likely from chronic heart failure and demand.
Chest x-ray shows no pleural effusion or evidence of pneumonia or infiltrate. Patient require admission for IV diuresis. Case discussed with ED attending.
Chronic conditions affecting care:
CHF, A-fib, ACS
Acute Exacerbation and/or Progression of Chronic Illness:
CHF
<Hiwot Aragon PA-C - Last Filed: 03/16/25 07:31>
*Pulse Oximetry
SaO2: 95
Oxygen Mode of Delivery: Room air
Patient hypoxic: no
*Critical Care Note
Total Time (30-74mins, 75-104mins- exclusive of procedures): Not Applicable
Data Reviewed
Review of Other/Old Records Reveals: Records (Reviewed ER physician documentation in the past, reviewed discharge summary from 05/30/2024)
Source: patient and records
ED Attending Note
<Hiwot Aragon PA-C - Last Filed: 03/16/25 07:31>
-
Portions of this chart may have been created with voice recognition software.� Occasional wrong word or��sound alike� substitutions may have occurred due to the inherent limitations of voice recognition software.
<Patel Sarkar DO - Last Filed: 03/16/25 06:48>
ED Attending Note
Patient seen and examined by attending physician: Yes
I performed the substantive portion of visit, reviewed & personally made and approve the management plan that is documented in note by myself or CARLOS.: Yes
ED Attending Note:
I evaluated the patient at bedside. Worsening renal function, troponin chronically elevated. Ongoing lower extremity edema despite being on torsemide. Gave IV diuretic and also added Nitropaste for preload reduction
Discharge Plan
Departure
Patient Disposition: Admit
Date of Disposition: 03/16/25
Time of Disposition: 05:56
Admit to: Med/Surg
Presentation/result/management discussed w/ accepting MD/DO: Hospitalist
Patient with high blood pressure during this ER visit?: Yes
Condition: Fair
Discharge Problem:
Acute on chronic heart failure with preserved ejection fraction (HFpEF)
Interventions
Interventions:
*Risk Screen - Suicide Last Done: 03/16/25 04:02
*General Assessment Last Done: 03/16/25 04:37
*Neglect/Abuse Screening Last Done: 03/16/25 04:02
*ED COVID-19 Vaccine History Last Done: 03/16/25 04:37
*ED Influenza Vaccine History Last Done: 03/16/25 04:37
[facility] Risk Assessment Tool Last Done: 03/16/25 04:24
ED- Cardiac Assessment Last Done: 03/16/25 04:25
ED- Pulmonary Assessment Last Done: 03/16/25 04:25
ED-Skin Assessment Last Done: 03/16/25 04:35
[2025-03-16 05:23] LABS: Troponin I 0.062 ng/ml
[2025-03-16] MEDS: LASIX 40 MG IV (06:15)
[2025-03-16] MEDS: NITRO-BID 1 INCH TOPICAL (06:19)
--- NOTE | 2025-03-16 06:21 | HPS.HSE ---
Family Physician
-
Family Physician: Luciana Gonzalez
Chief Complaint
-
LE swelling, cough
History of Present Illness
Patient is a 59y M with PMH significant for cardiomyopathy, chronic lymphedema and A-Fib s/p ablation who presents to ED complaining of increased LE swelling, cough and MERIDA. Patient states that LE have been gradually more swollen over the past
several days. He notes cough that is occasionally productive of clear mucus. He reports shortness of breath that occurs with exertion. No chest pain or palpitations. No fevers / chills. Patient states that he has been compliant with his
medications. He does not follow his weights regularly.
Medical History
Past Medical History
Past Medical History: Reports Other
Additional Past Medical History:
Paroxysmal A-Fib s/p Ablation
Dilated Cardiomyopathy
Chronic Heart Failure with Recovered EF
Essential Hypertension
GERD / PUD
Gout
Past Surgical History: Reports Other
Additional Past Surgical History:
Ex Lap / Perf Gastric Ulcer Repair (2014)
DCCV
PVI Ablation
Social History
Tobacco: Smoker (Rare cigar use.)
Alcohol: Former (No alcohol at all for at least 5 years.)
Drug: None
Family History
Family History: Other (Father: A-Fib)
Allergies / Home Medications
Allergies reflects when Allergies were last updated in [employer].
Home Medications with original date entered in [employer]
Allergy/Medication List:
Allergies
Allergy/AdvReac Type Severity Reaction Status Date / Time
No Known Allergies Allergy Verified 03/16/25 04:03
Home Medications
lisinopril 5 mg tablet 5 mg PO DAILY blood pressure 05/20/24
carvedilol 12.5 mg tablet 12.5 mg PO BID 30 days #60 tabs 05/29/24
torsemide 20 mg tablet 20 mg PO DAILY 30 days #30 tabs 05/29/24
Review of Systems
-
History Source: Patient
Constitutional: Reports Fatigue; Denies Fever or Chills
EENT: Denies Sore Throat
Respiratory: Reports Cough and Trouble Breathing; Denies Hemoptysis
Cardiac: Denies Chest Pain, Palpitations or Syncope
Abdomen/GI: Denies Abdominal Pain, Nausea, Vomiting or Diarrhea
: Denies Dysuria, Frequency or Flank Pain
Musculoskeletal: Reports Edema; Denies Joint Pain
Skin: Reports Other (b/l LE wounds / weeping)
Neurological: Denies Dizzy or Headache
Psych: Denies Depression or Anxiety
Physical Exam
Vital Signs
Vital Signs
Pulse Resp BP Pulse Ox
78 18 174/116 95
03/16/25 06:19 03/16/25 05:15 03/16/25 06:19 03/16/25 05:17
Physical Exam
General: Other (59y M in no acute distress.)
HEENT: Moist mucous membranes and Other (Thick neck, no appreciable JVD.)
Respiratory: Clear; No Wheezes, Rales or Rhonchi
Cardiac: S1/S2, Regular Rhythm and Murmur (III/ LIZBETH)
GI: Soft, Non Tender, Non Distended and Normal Bowel Sounds
Musculoskeletal: No Clubbing, No Cyanosis and Other (3+ pitting, nodular edema in b/l LE. R > L superficial blister / skin breakdown with clear fluid drainage. No erythema, induration, etc.)
Neuro: AO x 3
Laboratory Results
-
03/16/25 04:35
03/16/25 04:35
Laboratory Results
Total Bilirubin 1.9 mg/dl (0.2-1.3) H 03/16/25 04:35
AST 25 U/L (17-59) 03/16/25 04:35
ALT 23 U/L (0-50) 12/15/25 04:35
Alkaline Phosphatase 32 U/L (38-126) L 03/16/25 04:35
Troponin I 0.062 ng/ml H* 03/16/25 04:35
Impression/Plan
-
A/P: Patient is a 59y M with PMH significant for CHF, A-Fib s/p ablation and chronic lymphedema who presents to ED complaining of increased LE swelling and cough.
Acute on Chronic HFrecEF
Chronic Lymphedema
- Admit for further evaluation and treatment.
- Likely a degree of CHF exacerbation based on increased edema, MERIDA, etc.
- CXR is fairly unremarkable. Lungs clear on exam. Not hypoxemic.
- Weight is increased from prior. BNP elevated - but much lower than prior admission and fairly consistent with apparent 'baseline'.
- IV Lasix BID for now and follow I/Os, daily weights, etc.
- Update Echo.
- Cardio evaluation for additional recommendations.
- Wound Care eval for lower extremity blistering / wounds.
Abnormal Troponin
- Likely non-MS troponin elevation secondary to CHF as noted above.
- ASA daily. Continue beta-fani.
- Follow serial troponin to peak.
- Cardio eval as noted above.
Paroxysmal Atrial Fibrillation
- Stable s/p ablation. Patient is not on chronic OAC.
- Continue Coreg. Monitor on tele.
JAYLAN on CKD III
- SCr = 1.9 compared to prior baseline of 1.4.
- Likely pre-renal secondary to CHF.
- Follow for changes with diuresis.
DVT Prophylaxis: Lovenox
Code Status: Full
[2025-03-16 08:54] LABS: Troponin I 0.052 ng/ml
[2025-03-16 09:29] LABS: Glycohemoglobin (HgbA1c) 6.5 % (4.0-5.9)
--- NOTE | 2025-03-16 09:35 | W.PN.HOSP.TC ---
Today's Communication/Plan
-
IV diuresis
Assessment / Plan
Assessment / Plan
Impression
Patient is a 59y M with PMH significant for CHF, A-Fib s/p ablation and chronic lymphedema who presents to ED complaining of increased LE swelling and cough.
Acute CHF preserved/recovered EF
Progressive for multifactorial lower extremity edema
JAYLAN on CKD stage III AA.
Chronic myocardial injury with troponin elevation
Subclinical hypothyroidism
Hyperbilirubinemia
Other conditions
Chronic CHF improved EF.
Paroxysmal atrial fibrillation status post ablation. Patient declined anticoagulation.
CKD stage IIIa with baseline creatinine 1.5
Diabetes by history, not on glucose lowering therapy prior to presentation
Essential hypertension
Tophaceous gout
Chronic bilateral lower extremity venous stasis dermatitis
Obesity due to excess of calories
Imaging
Echo 04/26
-Left ventricular ejection fraction is 55-60%, by visual assessment. Possible
basal inferior hypokinesis. Stage III diastolic dysfunction suggestive of
restrictive filling pattern and increased filling pressures.
-Dilated right ventricle. Low normal right ventricular systolic function.
-Severely dilated left atrium. Dilated right atrium.
-Moderate, eccentric mitral regurgitation.
-Mild tricuspid regurgitation. Estimated pulmonary artery pressure of 45-50
mmHg.
Compared to previous echo on 08/31/2022 ([facility]), the LVEF has improved previously
(35-40%). The previous reported degree of mitral regurgitation appears to have
improved (previously severe).
Plan
Acute CHF preserved/recovered EF.
He presents with lower extremity edema. Denies shortness of breath or chest pain.
Stable respiratory status with no requirements for supplemental oxygen.
Severe bilateral lower extremity edema/lymphedema with venous stasis dermatitis and superficial ulcers.
Chest x-ray with cardiomegaly, although with no infiltrates pending official reading.
Noted with elevated creatinine at 1.9.
Significant weight gain upon presentation question if correct in ED 105 kg (99 kg dry weight)
Initiate diuresis with IV Lasix, dose will be increased to 60 mg IV twice daily
Follow daily weights and renal function closely
Hold ANGUS inhibitors while on diuresis
GDMT continue Coreg, hold Lasix for now. Consider SGLT2, potassium sparing diuretics
Monitor blood pressure trend
Cardiology evaluation
Update echocardiogram
Troponin elevation, looks like chronic without chest pain or ischemia on ECG.
Suspect chronic nonischemic myocardial injury in patient with CKD. Continue to trend
Paroxysmal atrial fibrillation with prior PVI
Currently in sinus rhythm.
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
JAYLAN on CKD stage IIIa. Baseline creatinine 1.5
Possibly cardiorenal state.
Check urinalysis for protein.
Renal sonogram
Monitor creatinine trend while on IV diuresis
Nephrology follow-up inpatient versus outpatient depends on the clinical progress
Bilateral lower extremity edema/lymphedema with venous stasis dermatitis and wounds.
No evidence for infection.
Wound care.
Diabetes type 2
Hemoglobin A1c 6.5.
Patient is not on any glucose lowering medications prior to admission.
Continue basal bolus protocol.
Consider initiation of SGLT2. Case management consult for pricing and coverage
Subclinical hypothyroidism
TSH 7.83. Free T4 1.64
Will start low-dose of levothyroxine 25 mcg.
Follow TFT as outpatient
Hyperbilirubinemia
No acute gastrointestinal complaints
Normal transaminases.
? If hepatic congestion related to CHF.
Follow trend
Check direct bilirubin
Tophaceous gout
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
Will check uric acid level
Anticipated Discharge: 24 - 48 hours
Subjective/Interval History
-
Date of Service: March 16, 2025
Objective Data
-
Labs:
Laboratory Results
03/16/25
04:35
WBC 7.5
Hgb 13.7
Hct 42.4
Plt Count 245
Sodium 141
Potassium 3.8
Chloride 105
Carbon Dioxide 26
BUN 38 H
Creatinine 1.9 H
Glucose 129 H
Calcium 9.2
Total Bilirubin 1.9 H
AST 25
ALT 23
Alkaline Phosphatase 32 L
Vital Signs:
Vital Signs
Temp Pulse Resp BP Pulse Ox
97.6 F 89 20 153/103 96
03/16/25 07:26 03/16/25 07:26 03/16/25 07:26 03/16/25 07:26 03/16/25 07:26
I&O
03/15/25 03/16/25 03/17/25
06:59 06:59 06:59
Output Total 375 / 375 500 / 500
Balance -375 / -375 -500 / -500
Physical Exam
-
General: Well Developed and No Apparent Distress
HEENT: Normocephalic, Atraumatic and Moist Mucous Membranes
Respiratory: Clear to Auscultation
Cardiac: Regular Rhythm and S1/S2; Negative Murmur, Rub or Gallop
GI: Soft, Nontender, Nondistended and Normal Bowel Sounds; Negative Organomegaly
Rectal: Deferred by Provider
Musculoskeletal: No Clubbing, No Cyanosis, No Edema and Other (Bilateral lower extremity edema/lymphedema with chronic venous stasis dermatitis and superficial ulcers)
Skin: Negative Rash
Neuro: Nonfocal/Grossly Intact
--- NOTE | 2025-03-16 10:03 | CON.CAR ---
Addendum entered and electronically signed by Hany Kern MD 03/16/25 13:38:
I saw and evaluated the patient, and I provided the substantive portion of the medical decision making.
I reviewed and agree with the note by Ms Betancourt and it accurately reflects our care.
I personally performed the medical decision making of the this encounter and my assessment and plan is below:
59-year-old male with HFimpEF (EF was 35-40%, 55-60% on echo April 2024), NICM -tachycardia induced cardiomyopathy, moderate mitral regurgitation, CKD 3a, Afib s/p ablation in 08/2022 and not on OAC therapy as he declines, hypertension,
nonobstructive CAD, and morbid obesity,�who c/o SOB/MERIDA and increased LE edema over 1 week.
He tells me this happens every time they put salt on the road. I did try to and discussed that salting roads should not lead to heart failure exacerbations, however, he is persistent that this is the case.
Otherwise, we will continue with IV diuresis. He is adamant that he needs to be out of the hospital tomorrow.
Original Note:
Consultation
Consultation Request
Date/Time Consultation Requested: 03/16/25 7:20a
Date/Time Consultation Performed: 03/16/25 8:30a
Requesting Provider: Dr. Rosario
Performing Provider: OLGA Ji for Dr. Kern
Reason for Consultation: acute HFpEF
Medical History
-
Chief Complaint: sob, LE edema
History of Present Illness:
Mr. Rodríguez is a 59-year-old male with HFimpEF (EF was 35-40%, 55-60% on echo April 2024), NICM -tachycardia induced cardiomyopathy, moderate mitral regurgitation, CKD 3a, Afib s/p ablation in 08/2022 and not on OAC therapy as he declines,
hypertension, nonobstructive CAD, and morbid obesity,�who c/o SOB/MERIDA and increased LE edema over 1 week. He reports compliance with Torsemide 20mg daily, but he does not weigh himself at home. He is admitted to the hospitalist raquel and we are
consulted for acute HFimpEF. He states the reason for his acute heart failure is the road salt, it causes his legs to swell and makes him SOB. 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 'This happens
everytime before it snows.' His last weight in our office was 221 lbs in December 2024.
Past Medical History
Past Medical History: Other (as above)
Past Surgical History: Cardiac (Afib ablation 08/2022)
Social History
Tobacco: Non-Smoker
Alcohol: None
Personal: Partner (girlfriend )
Living: Alone
Employment: Employed
Family History
Family History: Reviewed & Not Pertinent
Allergies / Home Medications
Allergy/AdvReac Type Severity Reaction Status Date / Time
No Known Allergies Allergy Verified 03/16/25 04:03
�Medication �Instructions �Recorded �Confirmed �Type
lisinopril 5 mg tablet 5 mg PO DAILY blood pressure 05/20/24 03/16/25 History
carvedilol 12.5 mg tablet 12.5 mg PO BID 30 days #60 tabs 05/29/24 03/16/25 Rx
torsemide 20 mg tablet 20 mg PO DAILY 30 days #30 tabs 05/29/24 03/16/25 Rx
Review of Systems
-
History Source: Patient
All other systems: Negative unless noted
Physical Exam
Vital Signs
Temp Pulse Resp BP Pulse Ox
97.6 F 89 20 153/103 96
03/16/25 07:26 03/16/25 07:26 03/16/25 07:26 03/16/25 07:26 03/16/25 07:26
Lab Results
03/16/25 04:35
03/16/25 04:35
Troponin I Cancelled 03/16/25 19:22
Shf-A-Wgwbzolugsm Pept 6140 pg/ml 03/16/25 04:35
Physical Exam
General: Well Developed, No Apparent Distress and Other (obese)
HEENT: Normocephalic and Anicteric
Respiratory: Clear (diminished b/l bases) and Non Labored Respirations
Cardiac: S1/S2, Regular Rhythm, Murmur (2/6 LIZBETH) and Peripheral Edema (+2 pitting edema b/l LE)
Breast: Deferred by me
GI: Soft, Non Tender and Normal Bowel Sounds
Rectal: Deferred by Provider
Genito-urinary: Clear Urine
Musculoskeletal: Edema (b/l LE)
Skin: Warm, Dry and Other (chronic venous changes with weeping wounds to b/l LE (intact dressings))
Neuro: AO x 3
Psych: Calm
Impression / Plan
-
HFimpEF - acute on chronic.
- he feels this is related to the road salt.
- agree with IV Lasix 60mg BID, which requires intensive monitoring.
- daily standing weights, I&Os, fluid/salt restrictions.
- close monitoring of BMP.
- check echo. last echo 04/2024 with EF 55-60%.
- tolerating GDMT with Coreg, Torsemide and Lisinopril as an outpatient, unable to afford other GDMT.
- he does not weigh himself at home, last stable weight was 221 lbs from office visit 01/21/25.
LE edema - likely lymphedema with chronic venous changes.
- wound care consulted.
- IV diuresis.
Afib - stable in NSR on Coreg.
- s/p ablation 08/2022.
- not on OAC as he refuses.
HTN - stable on medical therapy.
- holding Lisinopril due to JAYLAN.
- monitor with IV diuresis.
Mitral regurgitation - moderate on echo 04/2024.
- diuresis as above.
- check echo.
JAYLAN - acute on chronic CKD 3a.
- follow closely with diuresis.
Obesity - chronic.
- he would benefit from weight loss.
Dispo - pending.
- he states he will be leaving tomorrow because he has plans to go to [place] tomorrow night.
Data Reviewed
-
EKG: Tracing Personally Visualized and interpreted (SR with PVCs)
Radiology: Image Personally Visualized and interpreted (mild CHF)
Medical Tests (Nuc Med, Echo etc): Report Reviewed by me (echo 04/2024: 55-60%, severely dilated LA, moderate MR )
Labs: Labs Reviewed by me
Old Records: Reviewed
[2025-03-16] MEDS: COREG 12.5 MG PO ×2 (10:05→19:50)
[2025-03-16] MEDS: LOW STRENGTH ASPIRIN 81 MG PO (10:05)
--- NOTE | 2025-03-16 10:24 | CM ---
Chart reviewed and spoke with patient at ED bedside
He lives in [address] in [place]
Independent with ADLs
no DME
PCP Luciana Gonzalez
[facility]
no hx of VN nor SNF
DCP is to go home
CM will continue to follow up for any dcp needs
--- NOTE | 2025-03-16 11:33 | WOUNDNOTE ---
L MEDIAL LOWER LEG
--- NOTE | 2025-03-16 11:34 | WOUNDNOTE ---
L LOWER LEG STARKS
--- NOTE | 2025-03-16 11:35 | WOUNDNOTE ---
R POSTERIOR LOWER LEG
--- NOTE | 2025-03-16 11:36 | WOUNDNOTE ---
WENDY RN note: Patient admitted with acute on chronic heart failure.
See H&P for complete history.
PMH: CM, lymphedema, obesity, a fib (s/p ablation), gout, HF, HTN, perforated gastric ulcer (s/p exploratory lap), venous stasis leg ulcers, CKD3.
Wound Location and type/assessment: Patient known to service, last seen 04/04/24 for lower leg venous ulcers. Admitted with b/l posterior lower leg open blisters, shallow pink base. 1-2+ LE edema, redness. +Pedal pulses palpable. L anterior lower leg
with full thickness ulcer, diego base. Patient reports he hit his leg on corner of a picture frame. Heels are both intact. Sacrum with mild MASD. Patient seen with stock analyst at bedside, patient stated that he needs to leave tomorrow, 'I am driving
down to [place] with my daughter and nothing is going to stop me.'
Appetite: good. Encouraged protein in diet.
Pressure redistribution devices in place: [employer] Accumax. Patient is ambulatory. Leg elevation.
Plan: Adaptic and dry dressing applied to lower leg wounds. Will order honey gel for L anterior leg wound to start tomorrow and mineral oil to dry skin. Called [facility] for honey gel. Supplies at bedside to take upon discharge.
Will confirm orders with Dr. Rollins and updated RN, who will place honey gel at bedside when arrives..
Care plan to be updated and will follow as needed.
Note to case management requested for discharge: TBD.
Recommend follow up at wound care center upon discharge.
[2025-03-16 13:09] LABS: Urine Character Clear (Clear)
[2025-03-16 13:31] LABS: Uric Acid 11.2 mg/dl (3.5-8.5)
[2025-03-16 14:15] LABS: Urine Red Blood Cell 0-2 /HPF (0-2); Urine White Cell 0-2 /HPF (0-5)
[2025-03-16] MEDS: LASIX 60 MG IV (15:31)
[2025-03-16 17:43] LABS: Glucose - Point of Care 108 mg/dl (70-99)
[2025-03-16 21:30] LABS: Glucose - Point of Care 101 mg/dl (70-99)
[2025-03-17 03:08] VITALS: BP 147/99
[2025-03-17 06:00] VITALS: BMI 36.8
[2025-03-17 07:28] LABS: Glucose - Point of Care 127 mg/dl (70-99)
[2025-03-17 07:29] VITALS: BP 127/86
[2025-03-17 07:30] LABS: Hematocrit 41.5 % (39.0-52.0); Hemoglobin 13.4 g/dL (13.0-18.0); Mean Corp Hgb Conc. 32.3 g/dL (33.0-37.0); Mean Corpuscular Volume 85.4 fL (80.0-94.0); Platelet Count 212 10^3/uL (130-400); Red Cell Dist. Width 16.1 % (11.5-14.5)
[2025-03-17 07:40] LABS: ALT (SGPT) 20 U/L (0-50); AST (SGOT) 21 U/L (17-59); Albumin 4.0 g/dl (3.5-5.0); Alkaline Phosphatase 34 U/L (38-126); Blood Urea Nitrogen 32 mg/dl (9-20); Calcium 8.9 mg/dl (8.4-10.2); Carbon Dioxide 27 mmol/L (22-30); Chloride 103 mmol/L (98-107); Estimated Creatinine Clearance 58 ml/min; Glucose 120 mg/dl (70-99); HDL Cholesterol 34 mg/dl; LDL Cholesterol, Calculated 110 mg/dl; Potassium 3.5 mmol/L (3.5-5.1); Sodium 139 mmol/L (135-145); Total Protein 6.9 g/dl (6.3-8.2); Very Low Density Lipoprotein 12 mg/dl (0-30); eGFR 53.63
[2025-03-17] MEDS: LOW STRENGTH ASPIRIN 81 MG PO (08:16)
[2025-03-17] MEDS: COREG 12.5 MG PO ×2 (08:17→19:41)
[2025-03-17] MEDS: LASIX 60 MG IV ×2 (08:17→17:06)
[2025-03-17 11:19] VITALS: BP 136/88
[2025-03-17 11:52] LABS: Glucose - Point of Care 217 mg/dl (70-99)
--- NOTE | 2025-03-17 13:51 | W.PN.HOSP.TC ---
Today's Communication/Plan
-
Continue IV diuresis
Follow-up BMP
Assessment / Plan
Assessment / Plan
Impression
Patient is a 59y M with PMH significant for CHF, A-Fib s/p ablation and chronic lymphedema who presents to ED complaining of increased LE swelling and cough.
Acute CHF preserved/recovered EF
Progressive for multifactorial lower extremity edema
JAYLAN on CKD stage III AA.
Chronic myocardial injury with troponin elevation
Subclinical hypothyroidism
Hyperbilirubinemia
Other conditions
Chronic CHF improved EF.
Paroxysmal atrial fibrillation status post ablation. Patient declined anticoagulation.
CKD stage IIIa with baseline creatinine 1.5
Diabetes by history, not on glucose lowering therapy prior to presentation
Essential hypertension
Tophaceous gout
Chronic bilateral lower extremity venous stasis dermatitis
Obesity due to excess of calories
Imaging
Echo 04/26
-Left ventricular ejection fraction is 55-60%, by visual assessment. Possible
basal inferior hypokinesis. Stage III diastolic dysfunction suggestive of
restrictive filling pattern and increased filling pressures.
-Dilated right ventricle. Low normal right ventricular systolic function.
-Severely dilated left atrium. Dilated right atrium.
-Moderate, eccentric mitral regurgitation.
-Mild tricuspid regurgitation. Estimated pulmonary artery pressure of 45-50
mmHg.
Compared to previous echo on 08/31/2022 ([facility]), the LVEF has improved previously
(35-40%). The previous reported degree of mitral regurgitation appears to have
improved (previously severe).
Echo 03/16
1. Normal LV size and function with hypokinesis of the basal inferior wall.
2. LVEF is 55-60% by visual estimation. Stage III diastolic dysfunction.
3. Dilated RV with reduced systolic function.
4. Moderate to severe eccentric mitral regurgitation.
5. Mildly elevated estimated PASP of 45 mmHg.
6. Compared to prior from April 03, 2024, MR is now moderate to severe, previously moderate. Additionally, this may be underestimated given the severe eccentric nature of the jet.
Plan
Acute CHF preserved/recovered EF.
He presents with lower extremity edema. Denies shortness of breath or chest pain.
Stable respiratory status with no requirements for supplemental oxygen.
Severe bilateral lower extremity edema/lymphedema with venous stasis dermatitis and superficial ulcers.
Chest x-ray with cardiomegaly, although with no infiltrates pending official reading.
Noted with elevated creatinine at 1.9.
Significant weight gain upon presentation question if correct in ED 105 kg (99 kg dry weight)
Initiate diuresis with IV Lasix, dose will be increased to 60 mg IV twice daily
Follow daily weights and renal function closely
Hold ANGUS inhibitors while on diuresis
GDMT continue Coreg, hold Lasix for now. Consider SGLT2, potassium sparing diuretics
Monitor blood pressure trend
Troponin elevation, looks like chronic without chest pain or ischemia on ECG.
Suspect chronic nonischemic myocardial injury in patient with CKD.
Paroxysmal atrial fibrillation with prior PVI
Currently in sinus rhythm.
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
JAYLAN on CKD stage IIIa. Baseline creatinine 1.5
Suspect cardiorenal state
Creatinine trending down with diuresis
UA consistent with 1+ albumin urea.
Renal sonogram indicative of bilateral mild chronic renal disease. Trabeculation of urinary bladder with mild bilateral dilation of into the renal collecting system.
Bladder scan for retention
Check urine protein to creatinine ratio
Nephrology follow-up inpatient versus outpatient depends on the clinical progress
Bilateral lower extremity edema/lymphedema with venous stasis dermatitis and wounds.
No evidence for infection.
Wound care.
Diabetes type 2
Hemoglobin A1c 6.5.
Patient is not on any glucose lowering medications prior to admission.
Continue basal bolus protocol.
Consider initiation of SGLT2. Case management consult for pricing and coverage
Subclinical hypothyroidism
TSH 7.83. Free T4 1.64
Will start low-dose of levothyroxine 25 mcg.
Follow TFT as outpatient
Hyperbilirubinemia mostly indirect
No acute gastrointestinal complaints
Normal transaminases.
Suspect hepatic congestion
Improving with diuresis
Chronic tophaceous gout
Uric acid level significantly elevated at 11.2
Patient will need initiation of urate lowering therapy with allopurinol along with the anti-inflammatory medications to avoid flareup. Given CKD and decreased GFR choice would be systemic corticosteroids. That should be followed as outpatient and
once patient is adequately diuresed.
Anticipated Discharge: 24 - 48 hours
Subjective/Interval History
-
Date of Service: March 17, 2025
Objective Data
-
Labs:
Laboratory Results
03/17/25
06:34
WBC 6.5
Hgb 13.4
Hct 41.5
Plt Count 212
Sodium 139
Potassium 3.5
Chloride 103
Carbon Dioxide 27
BUN 32 H
Creatinine 1.5 H
Glucose 120 H
Calcium 8.9
Total Bilirubin 1.5 H
AST 21
ALT 20
Alkaline Phosphatase 34 L
Vital Signs:
Vital Signs
Temp Pulse Resp BP Pulse Ox
97.5 F 77 18 136/88 96
03/17/25 11:19 03/17/25 11:19 03/17/25 11:19 03/17/25 11:19 03/17/25 12:37
I&O
03/16/25 03/17/25 03/18/25
06:59 06:59 06:59
Intake Total 720 / 720 480 / 480
Output Total 375 / 375 1650 / 1650
Balance -375 / -375 -930 / -930 480 / 480
Physical Exam
-
General: Well Developed and No Apparent Distress
HEENT: Normocephalic, Atraumatic and Moist Mucous Membranes
Respiratory: Clear to Auscultation
Cardiac: Regular Rhythm and S1/S2; Negative Murmur, Rub or Gallop
GI: Soft, Nontender, Nondistended and Normal Bowel Sounds; Negative Organomegaly
Rectal: Deferred by Provider
Musculoskeletal: No Clubbing, No Cyanosis, No Edema and Other (Bilateral lower extremity edema/lymphedema with chronic venous stasis dermatitis and superficial ulcers)
Skin: Negative Rash
Neuro: Nonfocal/Grossly Intact
--- NOTE | 2025-03-17 14:39 | W.PN.CD ---
Today's Communication / Plan
-
- Needs diuresis
- If he wants to go home, needs Torsemide 20 mg BID for 4 days then QD
- Follow up with local injection molder in [place] within a week
Impression / Plan
-
HFimpEF - acute on chronic.
- he feels this is related to the road salt.
- agree with IV Lasix 60mg BID, which requires intensive monitoring.
- daily standing weights, I&Os, fluid/salt restrictions.
- close monitoring of BMP.
- Echo -
1. Normal LV size and function with hypokinesis of the basal inferior wall.
2. LVEF is 55-60% by visual estimation. Stage III diastolic dysfunction.
3. Dilated RV with reduced systolic function.
4. Moderate to severe eccentric mitral regurgitation.
- last echo 04/2024 with EF 55-60%. - MR has progressed to severe now.
- tolerating GDMT with Coreg, Torsemide and Lisinopril as an outpatient, unable to afford other GDMT.
- he does not weigh himself at home, last stable weight was 221 lbs from office visit 01/21/25.
- With severe MR, needs aggressive diuresis
LE edema - likely lymphedema with chronic venous changes.
- wound care consulted.
- IV diuresis.
Afib - stable in NSR on Coreg.
- s/p ablation 08/2022.
- No sign of AF since ablation.
- not on OAC as he refuses.
HTN - stable on medical therapy.
- holding Lisinopril due to JAYLAN.
- monitor with IV diuresis.
Mitral regurgitation - moderate on echo 04/2024.
- diuresis as above.
- check echo.
JAYLAN - acute on chronic CKD 3a.
- follow closely with diuresis.
Obesity - chronic.
- he would benefit from weight loss.
Dispo - pending.
Physical Exam
Vital Signs/Labs
Vital Signs
Temp Pulse Resp BP Pulse Ox
97.5 F 77 18 136/88 96
03/17/25 11:19 03/17/25 11:19 03/17/25 11:19 03/17/25 11:19 03/17/25 12:37
03/16/25 03/17/25 03/18/25
06:59 06:59 06:59
Actual Weight 105 kg 100.244 kg
03/17/25 06:34
03/17/25 06:34
Triglycerides 60 mg/dl (10-149) 03/17/25 06:34
LDL Cholesterol, Calc 110 mg/dl 03/17/25 06:34
VLDL Cholesterol, Calc 12 mg/dl (0-30) 03/17/25 06:34
HDL Cholesterol 34 mg/dl 03/17/25 06:34
Free T4 1.64 ng/dl (0.78-2.19) 03/16/25 08:11
03/16/25
04:35
Jae-E-Grelrkjqwrf Pept 6140
LAB Results
03/16/25 03/16/25 03/16/25
04:35 08:11 13:22
Troponin I 0.062 H* 0.052 H* Cancelled
03/16/25
19:22
Troponin I Cancelled
Physical Exam
Constitutional: No acute distress and Comfortable
EENT: Anicteric and Moist mucous membranes
Cardiovascular: Rhythm & rate is regular, Pedal edema present, JVD present and Systolic murmur present
Respiratory: Respiratory effort normal and Lungs clear to auscul.
Neuro/Psych: Alert, Oriented and AO x 3
Data Reviewed
-
Date of Service: March 17, 2025
Medical Decision Making: Reviewed Test Results, Test Interpretation and Review of Case with other Provider
EKG: Tracing Personally Visualized and interpreted
Echo: Report Reviewed by me
Labs: Labs Reviewed by me
Old Records: Reviewed
[2025-03-17 14:59] VITALS: BP 116/76
--- NOTE | 2025-03-17 15:01 | CM ---
Addendum entered by Niyah Alvarez 03/17/25 15:29:
Spoke with pt at bedside. He plans to go to [place] with his girlfriend to drop off her dtr and come back home .
Declined [facility] services but agreeable with follow up at wound care center
Dr. Rollins made aware of his plan GF can pick him up at [place]
Original Note:
Chart reviewed. Seen by cardiology
Pt states that he is going to [place] with dtr tomorrow and liquified natural gas specialist told him to follow up with [place] liquified natural gas specialist
[2025-03-17] MEDS: HYDROPHOR 1 APPLIC TOPICAL (15:33)
[2025-03-17 16:46] LABS: Glucose - Point of Care 116 mg/dl (70-99)
[2025-03-17] MEDS: ZAROXOLYN 5 MG PO (17:05)
[2025-03-17 19:00] VITALS: BP 150/93
[2025-03-17 22:10] LABS: Glucose - Point of Care 116 mg/dl (70-99)
[2025-03-17 23:00] VITALS: BP 134/86
[2025-03-18 03:14] VITALS: BP 135/82
[2025-03-18 04:58] VITALS: BMI 35.7
[2025-03-18 07:18] LABS: Blood Urea Nitrogen 39 mg/dl (9-20); Calcium 9.4 mg/dl (8.4-10.2); Carbon Dioxide 31 mmol/L (22-30); Chloride 96 mmol/L (98-107); Estimated Creatinine Clearance 58 ml/min; Glucose 120 mg/dl (70-99); Potassium 3.2 mmol/L (3.5-5.1); Sodium 137 mmol/L (135-145); eGFR 53.63
[2025-03-18] MEDS: LOW STRENGTH ASPIRIN 81 MG PO (07:58)
[2025-03-18] MEDS: ZAROXOLYN 5 MG PO (07:59)
[2025-03-18 08:00] VITALS: BP 141/91
[2025-03-18] MEDS: LASIX 60 MG IV (08:00)
[2025-03-18] MEDS: COREG 12.5 MG PO (08:00)
[2025-03-18] MEDS: HYDROPHOR 1 APPLIC TOPICAL (08:01)
--- NOTE | 2025-03-18 08:19 | W.DS.TRANS ---
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
-
Discharge Instructions:
Discharge Diagnosis/Procedures Acute CHF
Diet 2 Gram Sodium
Instructions:
Stand-Alone Forms:
Changes to Home Medications: Yes
Discharge Medications:
DC Medications w/original date entered in [employer]
lisinopril 5 mg tablet 5 mg PO DAILY blood pressure 05/20/24
carvedilol 12.5 mg tablet 12.5 mg PO BID 30 days #60 tabs 05/29/24
aspirin 81 mg chewable tablet 81 mg PO DAILY #30 tabs 03/18/25
levothyroxine 25 mcg tablet 25 mcg PO DAILY @ 0600 #30 tabs 03/18/25
torsemide 20 mg tablet 20 mg PO DAILY 30 days #30 tabs 03/18/25
Home Medication Changes
Levothyroxin, ASA added
Pending Results: No
[2025-03-18] MEDS: KCL 40 MEQ PO (08:20)
--- NOTE | 2025-03-18 08:29 | W.DCSUMMARY ---
Discharge Summary
Discharge Data
Date of Admission: 03/16/25
Date of Discharge: 03/18/25
-
Pending Results: No
Hospital Course
Impression
Patient is a 59y M with PMH significant for CHF, A-Fib s/p ablation and chronic lymphedema who presents to ED complaining of increased LE swelling and cough.
Acute CHF preserved/recovered EF
Progressive for multifactorial lower extremity edema
JAYLAN on CKD stage III AA.
Chronic myocardial injury with troponin elevation
Subclinical hypothyroidism
Hyperbilirubinemia
Other conditions
Chronic CHF improved EF.
Paroxysmal atrial fibrillation status post ablation. Patient declined anticoagulation.
CKD stage IIIa with baseline creatinine 1.5
Diabetes by history, not on glucose lowering therapy prior to presentation
Essential hypertension
Tophaceous gout
Chronic bilateral lower extremity venous stasis dermatitis
Obesity due to excess of calories
Imaging
Echo 04/26
-Left ventricular ejection fraction is 55-60%, by visual assessment. Possible
basal inferior hypokinesis. Stage III diastolic dysfunction suggestive of
restrictive filling pattern and increased filling pressures.
-Dilated right ventricle. Low normal right ventricular systolic function.
-Severely dilated left atrium. Dilated right atrium.
-Moderate, eccentric mitral regurgitation.
-Mild tricuspid regurgitation. Estimated pulmonary artery pressure of 45-50
mmHg.
Compared to previous echo on 08/31/2022 ([facility]), the LVEF has improved previously
(35-40%). The previous reported degree of mitral regurgitation appears to have
improved (previously severe).
Echo 03/16
1. Normal LV size and function with hypokinesis of the basal inferior wall.
2. LVEF is 55-60% by visual estimation. Stage III diastolic dysfunction.
3. Dilated RV with reduced systolic function.
4. Moderate to severe eccentric mitral regurgitation.
5. Mildly elevated estimated PASP of 45 mmHg.
6. Compared to prior from April 03, 2024, MR is now moderate to severe, previously moderate. Additionally, this may be underestimated given the severe eccentric nature of the jet.
Plan
Acute CHF preserved/recovered EF.
He presents with lower extremity edema. Denies shortness of breath or chest pain.
Stable respiratory status with no requirements for supplemental oxygen.
Severe bilateral lower extremity edema/lymphedema with venous stasis dermatitis and superficial ulcers.
Chest x-ray with cardiomegaly, although with no infiltrates pending official reading.
Noted with elevated creatinine at 1.9.
Significant weight gain upon presentation question if correct in ED 105 kg (99 kg dry weight)
Repeated echocardiogram as above showed no severe mitral regurgitation.
Patient responded to diuresis with reduction of weight and improvement of dyspnea. While on IV diuretics creatinine plateaued 1.5.
Plan is to transition to torsemide and follow-up with cardiology as outpatient.
Troponin elevation, looks like chronic without chest pain or ischemia on ECG.
Suspect chronic nonischemic myocardial injury in patient with CKD.
Paroxysmal atrial fibrillation with prior PVI
Currently in sinus rhythm.
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
Initiated on aspirin
JAYLAN on CKD stage IIIa. Baseline creatinine 1.5
Suspect cardiorenal state
Creatinine trending down with diuresis
UA consistent with 1+ albumin urea.
Renal sonogram indicative of bilateral mild chronic renal disease. Trabeculation of urinary bladder with mild bilateral dilation of into the renal collecting system.
Bladder scan for retention
Urine protein to creatinine ratio pending.
Nephrology follow-up inpatient versus outpatient depends on the clinical progress
Hypokalemia being repleted
Bilateral lower extremity edema/lymphedema with venous stasis dermatitis and wounds.
No evidence for infection.
Wound care has been performed
Diabetes type 2
Hemoglobin A1c 6.5.
Patient is not on any glucose lowering medications prior to admission.
Continue basal bolus protocol.
Would benefit from SGLT2.
Subclinical hypothyroidism
TSH 7.83. Free T4 1.64
Will start low-dose of levothyroxine 25 mcg.
Follow TFT as outpatient
Hyperbilirubinemia mostly indirect
No acute gastrointestinal complaints
Normal transaminases.
Suspect hepatic congestion
Improving with diuresis
Chronic tophaceous gout
Uric acid level significantly elevated at 11.2
Patient will need initiation of urate lowering therapy with allopurinol along with the anti-inflammatory medications to avoid flareup. Given CKD and decreased GFR choice would be systemic corticosteroids. That should be followed as outpatient and
once patient is adequately diuresed.
Discharge Plan
-
Patient Disposition: Home (Routine Discharge)
Discharge Diagnosis/Procedures: Acute CHF
Condition: Good
Diet: 2 Gram Sodium
Activity Restrictions/Additional Instructions:
Wound Care Instructions
Posterior legs: clean with saline or soap and water, adaptic and dry dressing daily
L anterior lower leg: clean with saline or soap and water, smear of honey gel, adaptic and dry dressing daily
mineral oil to dry skin daily
David wraps to both legs knee high daily, can remove at bedtime
leg elevation when sitting
Follow up at wound care center call for an appointment.
Referrals:
Luciana Gonzalez DO [Family Provider, Family Practice]
Additional Discharge Medication Instructions: Take Torsemide 20 mg twice a day for 4 days then go back to once a day
Prescriptions:
New
levothyroxine 25 mcg Tablet
25 mcg PO DAILY @ 0600 Qty: 30 0RF
aspirin 81 mg Tablet,Chewable
81 mg PO DAILY Qty: 30 0RF
Continued
lisinopril 5 mg tablet
5 mg PO DAILY
carvedilol 12.5 mg Tablet
12.5 mg PO BID 30 Days Qty: 60 0RF
torsemide 20 mg Tablet
20 mg PO DAILY 30 Days Qty: 30 0RF
Rx Instructions:
Take 20 mg twice a day for 4 days, then go back to once a day.
Discharge Orders:
Discharge Patient (As Directed); Ordered 03/18/25
Ordered By: Moises Rollins
Discharge Date and Time
Print Language: DJIBOUTIAN
[2025-03-18 12:26] LABS: Glucose - Point of Care 149 mg/dl (70-99)
== END 2025-03-18 09:28 | disposition home or self-care (01) | DRG 291 ==
LOC: 1 ACUTE 06:34
PROVIDERS: Physician Assistant; ADMITTING PHYSICIAN Hospitalist; ATTENDING PHYSICIAN Internal Medicine; EMERGENCY PHYSICIAN Emergency Medicine; FAMILY PHYSICIAN Family Medicine; OTHER PHYSICIAN Internal Medicine Cardiovascular Disease
DX: I13.0 Hypertensive heart and chronic kidney disease with heart failure and stage 1 through stage 4 chronic kidney disease, or unspecified chronic kidney disease (principal); I50.33 Acute on chronic diastolic (congestive) heart failure; N17.9 Acute kidney failure, unspecified; R17 Unspecified jaundice; I5A Non-ischemic myocardial injury (non-traumatic); N18.31 Chronic kidney disease, stage 3a; I48.0 Paroxysmal atrial fibrillation; I89.0 Lymphedema, not elsewhere classified; I05.1 Rheumatic mitral insufficiency; E11.22 Type 2 diabetes mellitus with diabetic chronic kidney disease; E03.8 Other specified hypothyroidism; E87.6 Hypokalemia; M1A.9XX1 Chronic gout, unspecified, with tophus (tophi); K21.9 Gastro-esophageal reflux disease without esophagitis; F17.200 Nicotine dependence, unspecified, uncomplicated; E66.01 Morbid (severe) obesity due to excess calories; I42.0 Dilated cardiomyopathy; Z68.35 Body mass index [BMI] 35.0-35.9, adult; Z11.52 Encounter for screening for COVID-19; Z79.899 Other long term (current) drug therapy; Z79.82 Long term (current) use of aspirin; Z79.890 Hormone replacement therapy
CPT/HCPCS: 71046; 76770; 80048; 80053; 80061; 81003; 81015; 82248; 82570; 82962; 83036; 83880; 84156; 84439; 84443; 84484; 84550; 85025; 85027; 87502; 87811; 93005; 93306; 96374; 99285

== ENCOUNTER 2025-03-19 06:42 | Emergency (ER) | payer OTHER, SELFPAY ==
[2025-03-19 06:45] VITALS: BP 134/90
[2025-03-19 07:22] LABS: Hematocrit 48.4 % (39.0-52.0); Hemoglobin 15.5 g/dL (13.0-18.0); Mean Corp Hgb Conc. 32.0 g/dL (33.0-37.0); Mean Corpuscular Volume 85.2 fL (80.0-94.0); Nucleated Red Blood Cells % 0 % (-); Platelet Count 240 10^3/uL (130-400); Red Cell Dist. Width 16.3 % (11.5-14.5)
[2025-03-19 07:38] LABS: ALT (SGPT) 17 U/L (0-50); AST (SGOT) 18 U/L (17-59); Albumin 4.5 g/dl (3.5-5.0); Alkaline Phosphatase 40 U/L (38-126); Blood Urea Nitrogen 52 mg/dl (9-20); Calcium 9.3 mg/dl (8.4-10.2); Carbon Dioxide 28 mmol/L (22-30); Chloride 96 mmol/L (98-107); Glucose 128 mg/dl (70-99); Potassium 3.5 mmol/L (3.5-5.1); Sodium 136 mmol/L (135-145); Total Protein 7.6 g/dl (6.3-8.2); eGFR 43.09
[2025-03-19 08:04] LABS: Troponin I 0.043 ng/ml
--- NOTE | 2025-03-19 08:45 | ED.GENMED ---
History of Present Illness
General
Chief Complaint: Breathing Problem
Source: patient and records
Time Seen by Provider: 03/19/25 08:29
History of Present Illness
History of Present Illness:
59-year-old male with past medical history of atrial fibrillation, CHF, CAD, hypertension, valvular disease presenting to the emergency department after he was recently admitted on March 15, discharged yesterday (patient states that he left
[facility]) stating that he still feels short of breath which is what prompted him to come back to the emergency department. He reports taking the medications that he was discharged with as prescribed (torsemide twice daily for 4 days
and then switching to 20 mg daily) but still remains symptomatic. He denies any fevers, cough, chest pain, palpitations, diaphoresis. He still notes lower extremity edema. No new concerns today.
Past History
Past History
ED Past Medical History: CAD, CHF, HTN, Valvular disease, Other (Gout) and Other (Perforated gastric ulcer 2014)
ED Past Surgical History: Urological and Other (laparotomy, repair of perforated gastric ulcer 2014)
Social History
Tobacco: Non-smoker
Alcohol: Occasional
Drug: None
Personal: Single
Living: alone
Employment: Employed
Review of Systems
Review of Systems
All Other Systems: ROS reviewed and negative except as documented in HPI and ROS
Phy Exam
Physical Exam
Physical Exam:
GENERAL: Alert , in no apparent distress, somewhat unkempt, appears older than stated age
HEAD: Normocephalic atraumatic
EYE: Clear conjunctiva
NECK: Supple
ENT: o/p clr, mmm.
CARDIAC: Regular rate and rhythm, systolic murmur at the apex.
LUNGS: Clear breath sounds bilaterally, no acute respiratory distress, no wheezes/rales/rhonchi
ABDOMEN: Soft, without focal tenderness, no r/g, no cvat
NEUROLOGICAL: Alert and oriented
SKIN: Warm and dry, skin intact.
MUSCULOSKELETAL: 1+ pitting lower extremity edema below the knee, she was untied to accommodate for the edema, well perfused.
PSYCH: Normal and appropriate interaction.
Scores
Heart Failure Risk
Heart Failure Risk Score: Yes
History of Stroke or TIA: No
History of intubation for respiratory distress: No
Heart rate on ED arrival >/= 110: No
SaO2 <90% on arrival on room air: No
HR >/=110 during 3min walk test (or too ill to perform test): No
ECG has acute ischemic changes: No
Urea >/=12mmol/L (BUN 33.6mg/dL): Yes
Serum CO2>/=35mmol/L: No
Troponin I or T elevated to VT Level (0.4mg/dL): No
NT-proBNP >/=5,000ng/L (5,000pg/ml): No
HF Risk Score: 1
Admission Status: MEDIUM RISK 5.1% Consider observation or discharge to home with homecare & f/u visit to PCP/Aerospace Assembler, or SNF for treatment
Heart Score for Chest Pain Patients
STEMI patient?: Not applicable
Withdrawal Assessment of Alcohol
Withdrawal Assessment Completed?: Not applicable
Course
Orders/Labs/Results
Orders:
Orders
03/19/25 06:49
Electrocardiogram (*1) Urgent
Reason for Study: Shortness of Breath
EKG- Treatment ONCE
03/19/25 07:05
BNP [NT-proBNP] Urgent
Complete Blood Count/With Diff Urgent
Comprehensive Metabolic Panel Urgent
Troponin I Urgent
03/19/25 08:45
CR Chest - 2 Views Urgent
Comment:
Reason For Exam: SOB
Abnormal Lab Results
03/19/25
07:05
MCHC 32.0 L g/dL
(33.0-37.0)
RDW 16.3 H %
(11.5-14.5)
Absolute Monos (auto) 1.0 H 10^3/uL
(0.1-0.6)
Lymphocytes % 15.7 L %
(20.5-51.1)
Monocytes % 12.0 H %
(1.7-9.3)
Chloride 96 L mmol/L
(98-107)
BUN 52 H mg/dl
(9-20)
Creatinine 1.8 H mg/dL
(0.7-1.3)
Glucose 128 H mg/dl
(70-99)
Total Bilirubin 2.1 H mg/dl
(0.2-1.3)
Troponin I 0.043 H* ng/ml
03/19/25 07:05
03/19/25 07:05
Vital Signs
Initial and Last Documented VS:
Initial Vital Signs
Temp Pulse Resp BP Pulse Ox
97.9 F 79 21 134/90 96
03/19/25 06:45 03/19/25 06:45 03/19/25 06:45 03/19/25 06:45 03/19/25 06:45
Last Documented Vital Signs
Temp Pulse Resp BP Pulse Ox
97.9 F 79 21 134/90 96
03/19/25 06:45 03/19/25 06:45 03/19/25 06:45 03/19/25 06:45 03/19/25 08:45
MDM/Problems Addressed
Differential Diagnosis Includes:
Progression of valvular disease
CHF
ACS
Electrolyte imbalance
Acute on chronic kidney disease
Pulmonary edema
MDM/Problems Addressed:
59-year-old male presenting back to the emergency department after he reports he left AMA (discharge papers state that he was discharged home) for continued shortness of breath. Patient had extensive workup here including echocardiogram which
showed progression of moderate mitral regurgitation to now moderate to severe mitral regurgitation. I do suspect this is a large component to patient's current symptomatology. No fevers or symptoms to suggest infectious etiology. Labs initiated
in triage are reassuring as they are all rate around patient's baseline or improved upon his discharge outside of a slightly elevated creatinine from his discharge. Given his chronic medical conditions, presenting concerns and recent admission will
notify cardiology to see patient in the ER to help with disposition planning as patient may not need readmission.
Chronic conditions affecting care: Cardiomyopathy
Acute Exacerbation and/or Progression of Chronic Illness: Cardiomyopathy
*Radiology
Radiology exam reviewed: preliminary read by ED provider (Cardiomegaly, no effusions)
*Pulse Oximetry
SaO2: 96
Oxygen Mode of Delivery: Room air
Patient hypoxic: no
*EKG
Heart Rate: 79
Rate: normal
Rhythm: sinus
Ischemia: non-specific ST changes
*Critical Care Note
Total Time (30-74mins, 75-104mins- exclusive of procedures): Not Applicable
Data Reviewed
Review of Other/Old Records Reveals: Labs, Records, Radiology Studies and Discharge Summary
Patient Management
Discussion with other providers: Sack Keeper
Escalation/DeEscalation of care consider admission/obs:
Patient seen at the bedside by cardiology who agrees patient is stable for discharge home and does not require further admission. They do recommend increasing the torsemide from 20 mg twice daily for 4 days to a full week. The office will call the
patient for a follow-up visit in 1 to 2 weeks. Patient aware of return precautions.
ED Attending Note
-
Portions of this chart may have been created with voice recognition software.� Occasional wrong word or��sound alike� substitutions may have occurred due to the inherent limitations of voice recognition software.
Discharge Plan
Departure
Patient Disposition: Home (Routine Discharge)
Date of Disposition: 03/19/25
Time of Disposition: 09:39
Patient with high blood pressure during this ER visit?: No
Discharge Problem:
Acute on chronic heart failure with preserved ejection fraction (HFpEF)
Instructions: Shortness of Breath (Dyspnea) (DC)
Prescriptions:
No Action
lisinopril 5 mg tablet
5 mg PO DAILY
carvedilol 12.5 mg Tablet
12.5 mg PO BID 30 Days Qty: 60 0RF
aspirin 81 mg Tablet,Chewable
81 mg PO DAILY Qty: 30 0RF
torsemide 20 mg Tablet
20 mg PO DAILY 30 Days Qty: 30 0RF
Referrals:
Luciana Gonzalez DO [Family Provider, Family Practice]
Activity Restrictions/Additional Instructions:
Take your torsemide 20mg twice daily for 1 week and then take one once daily as directed by cardiology
Interventions
Interventions:
*Risk Screen - Suicide (C-SSRS) Last Done: 03/19/25 06:45
Discharge Date and Time
Print Language: ARABIC
--- NOTE | 2025-03-19 13:19 | CON.CAR ---
Consultation
Consultation Request
Date/Time Consultation Requested: 03/19/25
Date/Time Consultation Performed: 03/19/25
Requesting Provider: Pilo Urbina PA-C
Performing Provider: Dr. Gustafson
Reason for Consultation: CHF
Medical History
-
Chief Complaint: Leg swelling, leg pain
History of Present Illness:
59-year-old male (discharged yesterday) with NICM/tachycardia induced/NICM/HFimpEF (EF was 35-40%, 55-60% on echo April 2024), Afib s/p ablation in 08/2022 (declines OAC), moderate to severe mitral regurgitation, CKD3a, hypertension, nonobstructive
CAD, and morbid obesity presenting with leg pain/edema. Patient believes the reason for his acute heart failure is the road salt that causes his legs to swell and makes him SOB. The patient was eager to be discharged yesterday because he had to
take his girlfriend to a doctor's appointment visit.
Past Medical History
Past Medical History: Other (as above)
Past Surgical History: Cardiac (Afib ablation 08/2022)
Social History
Tobacco: Non-Smoker
Alcohol: None
Personal: Partner (girlfriend )
Living: Alone
Employment: Employed
Family History
Family History: Reviewed & Not Pertinent
Allergies / Home Medications
Allergy/AdvReac Type Severity Reaction Status Date / Time
No Known Allergies Allergy Verified 03/19/25 06:44
�Medication �Instructions �Recorded �Confirmed �Type
lisinopril 5 mg tablet 5 mg PO DAILY blood pressure 05/20/24 03/19/25 History
carvedilol 12.5 mg tablet 12.5 mg PO BID 30 days #60 tabs 05/29/24 03/19/25 Rx
aspirin 81 mg chewable tablet 81 mg PO DAILY #30 tabs 03/18/25 03/19/25 Rx
torsemide 20 mg tablet 20 mg PO DAILY 30 days #30 tabs 03/18/25 03/19/25 Rx
Review of Systems
-
History Source: Patient
All other systems: Negative unless noted
Musculoskeletal: Joint Pain and Edema
Physical Exam
Vital Signs
Temp Pulse Resp BP Pulse Ox
97.9 F 79 21 134/90 96
03/19/25 06:45 03/19/25 06:45 03/19/25 06:45 03/19/25 06:45 03/19/25 08:45
Lab Results
03/19/25 07:05
03/19/25 07:05
Troponin I 0.043 ng/ml H* 03/19/25 07:05
Mtk-S-Xdvsurzsqat Pept 597 pg/ml 03/19/25 07:05
Physical Exam
General: No Apparent Distress and Comfortable
HEENT: Normocephalic
Respiratory: Clear
Cardiac: S1/S2
Breast: N/A
GI: Soft
Rectal: Deferred by Provider
Musculoskeletal: Edema (3+)
Skin: Warm
Neuro: AO x 3
Psych: Calm
Impression / Plan
-
59-year-old male (discharged yesterday) with NICM/tachycardia induced/NICM/HFimpEF (EF was 35-40%, 55-60% on echo April 2024), PAF s/p ablation in 08/2022 (declines OAC), moderate to severe mitral regurgitation, CKD3a, hypertension, nonobstructive
CAD, and morbid obesity presenting with leg pain/edema. Patient believes the reason for his acute heart failure is the road salt that causes his legs to swell and makes him SOB. The patient was eager to be discharged yesterday because he had to
take his girlfriend to a doctor's appointment visit.
HFimpEF - acute on chronic.
- Patient can continue torsemide 20 mg BID x 7 days that was recommended on discharge yesterday, then resume 20 mg daily but; has been diuresing well.
- Continue current doses of Coreg and Lisinopril; unable to afford other GDMT.
Lymphedema with chronic venous changes/wounds.
- Torsemide as above for diuresis.
- Wound care.
PAF - stable in NSR on Coreg.
- S/p ablation 08/2022.
- Stable.
- Declines OAC.
HTN -fairly controlled.
- Continue Coreg, lisinopril, and torsemide as above.
Moderate to severe mitral regurgitation:
- Torsemide plan as above.
JAYLAN - acute on chronic CKD 3a.
- Will monitor as outpatient.
Obesity - chronic.
- Weight loss and regular exercise recommended.
Data Reviewed
-
EKG: Report Reviewed by me (Sinus rhythm with PACs at 79 bpm, nonspecific ST/T abnormality.)
Medical Tests (Nuc Med, Echo etc): Report Reviewed by me (EF 55-60%, stage III diastolic dysfunction; dilated RV with reduced systolic function; moderate to severe eccentric mitral regurgitation; mild tricuspid regurgitation, estimated PASP 45
mmHg.) and Discussed with Physician (ER Attending and DIPAK)
Labs: Labs Reviewed by me and Discussed with Patient
== END 2025-03-19 10:39 | disposition home or self-care (01) ==
LOC: EMR 06:42
PROVIDERS: EMERGENCY PHYSICIAN Student in an Organized Health Care Education/Training Program; FAMILY PHYSICIAN Family Medicine
DX: I13.0 Hypertensive heart and chronic kidney disease with heart failure and stage 1 through stage 4 chronic kidney disease, or unspecified chronic kidney disease (principal); I50.33 Acute on chronic diastolic (congestive) heart failure; N18.31 Chronic kidney disease, stage 3a; N17.9 Acute kidney failure, unspecified; I25.10 Atherosclerotic heart disease of native coronary artery without angina pectoris; I42.9 Cardiomyopathy, unspecified; I48.0 Paroxysmal atrial fibrillation; I08.1 Rheumatic disorders of both mitral and tricuspid valves; I89.0 Lymphedema, not elsewhere classified; M10.9 Gout, unspecified; E66.01 Morbid (severe) obesity due to excess calories; Z79.82 Long term (current) use of aspirin
CPT/HCPCS: 99284; 71046; 80053; 83880; 84484; 85025; 93005